=== PATIENT | female | born 1965 | race Caucasian/White ===

== ENCOUNTER 2017-09-18 05:42 | Emergency (ER) | payer BC ==
[~2017-09-18] VITALS: Ht 170.2 cm; Wt 110.8 kg
[2017-09-18] MEDS ORDERED: ondansetron/PF 4mg/2ml inj IV ONE (06:20)
[2017-09-18] MEDS ORDERED: piperacillin/tazo 3.375gm/50ml 50 ML IV ONE (06:20)
[2017-09-18] MEDS ORDERED: normal saline 1000ML IV soln IV ONE (06:20)
[2017-09-18] MEDS ORDERED: morphine 4 MG/ML inj SYRINge IV ONE (06:20)
[2017-09-18] MEDS ORDERED: vancomycin/NS 1 GM ADD-VANTAGE 250 ML IV ONE (06:20)
[2017-09-18] MEDS ORDERED: iohexol 300mg/ml 100ml inj. ONE (06:31)
[2017-09-18 07:27] LABS: BASOPHILS # (AUTO) 0.1 X10'3 (0-0.2); BASOPHILS % (AUTO) 0.5 % (0-1); EOSINOPHILS # (AUTO) 0.4 X10'3 (0-0.9); EOSINOPHILS % (AUTO) 1.6 % (0-6); HEMATOCRIT 32.7 % (35.0-45.0); HEMOGLOBIN 10.4 g/dl (12.0-16.0); LYMPHOCYTES # (AUTO) 1.6 X10'3 (1.1-4.8); LYMPHOCYTES % (AUTO) 7.1 % (21-51); MEAN CORPUSCULAR HEMOGLOBIN 22.6 PG (27.0-31.0); MEAN CORPUSCULAR HGB CONC 31.8 % (33.0-36.5); MEAN CORPUSCULAR VOLUME 71.2 FL (78-98); MEAN PLATELET VOLUME 8.6 FL (7.4-10.4); MONOCYTES % (AUTO) 4.7 % (2-12); NEUTROPHILS # (AUTO) 18.9 X10'3 (1.8-7.7); NEUTROPHILS % (AUTO) 86.1 % (42-75); PLATELET COUNT 482 X10'3 (140-440); RED BLOOD COUNT 4.59 X10'6 (4.20-5.60); RED CELL DISTRIBUTION WIDTH 19.9 % (11.5-14.5)
[2017-09-18] MEDS ORDERED: normal saline 1000ML IV soln IVB ONE ×2 (07:30)
[2017-09-18 07:38] LABS: PARTIAL THROMBOPLASTIN TIME 26 SECONDS (22-32); PROTHROMBIN TIME 10.5 SECONDS (9.0-12.0)
[2017-09-18 07:44] LABS: ALANINE AMINOTRANSFERASE 30 U/L (12-78); ALBUMIN 2.8 G/DL (3.4-5.0); ALBUMIN/GLOBULIN RATIO 0.6 (1.1-1.5); ALKALINE PHOSPHATASE 98 IU/L (46-116); ANION GAP 8 (8-16); ASPARTATE AMINO TRANSFERASE 22 U/L (10-37); BILIRUBIN,TOTAL 0.4 MG/DL (0.1-1.0); BLOOD UREA NITROGEN 11 MG/DL (7-18); BUN/CREATININE RATIO 12.2 (6.6-38.0); CALCIUM 8.5 MG/DL (8.5-10.1); CHLORIDE 100 MMOL/L (99-107); GLUCOSE 147 MG/DL (70-104); MAGNESIUM 1.8 MG/DL (1.5-2.4); POTASSIUM 3.2 MMOL/L (3.5-5.1); SODIUM 136 MMOL/L (135-145); TOTAL CARBON DIOXIDE 28.1 MMOL/L (24-32); TOTAL PROTEIN 7.5 G/DL (6.4-8.2); eGFR 66 ML/MIN
[2017-09-18] MEDS ORDERED: potassium Cl 20 mEq SR tablet PO STA (07:51)
[2017-09-18] MEDS ORDERED: CLIN150C8 PO (09:04)
[2017-09-18] MEDS ORDERED: SULF1TAB49 PO (09:04)
[2017-09-18] MEDS ORDERED: HYDR-3965 PO (09:04)
[2017-09-18 10:58] VITALS: BP 162/55
== END 2017-09-18 11:00 | disposition home or self-care (01) ==
LOC: ER 05:43
DX: N76.2 Acute vulvitis (principal); N76.4 Abscess of vulva; Z79.899 Other long term (current) drug therapy
CPT/HCPCS: 36415; 71045; 72193; 80053; 83605; 83735; 84145; 85025; 85610; 85730; 87040; 93005; 96365; 96367; 96375; 99285; J2270; J2405; J2543; J3370; J7030; Q9967

== ENCOUNTER 2019-03-11 13:19 | Inpatient (IN) | payer BC, OTHER ==
[~2019-03-11] VITALS: Ht 170.2 cm; Wt 107.4 kg
[~2019-03-11 13:19] MED LIST: CLIN150C8 PO; etomidate 2mg/ml inj. ONE; rocuronium 10mg/ml inj IV ONE
[2019-03-11 15:04] LABS: BASOPHILS % (AUTO) 0.2 % (0-1); EOSINOPHILS # (AUTO) 0.1 X10'3 (0-0.9); EOSINOPHILS % (AUTO) 0.4 % (0-6); HEMATOCRIT 38.1 % (35.0-45.0); HEMOGLOBIN 11.4 g/dl (12.0-16.0); LYMPHOCYTES # (AUTO) 1.6 X10'3 (1.1-4.8); LYMPHOCYTES % (AUTO) 10.3 % (21-51); MEAN CORPUSCULAR HEMOGLOBIN 21.7 PG (27.0-31.0); MEAN CORPUSCULAR HGB CONC 29.9 g/dL (33.0-36.5); MEAN CORPUSCULAR VOLUME 72.5 FL (78-98); MEAN PLATELET VOLUME 8.2 FL (7.4-10.4); MONOCYTES # (AUTO) 1.3 X10'3 (0-0.9); MONOCYTES % (AUTO) 8.4 % (2-12); NEUTROPHILS # (AUTO) 12.2 X10'3 (1.8-7.7); NEUTROPHILS % (AUTO) 80.7 % (42-75); PLATELET COUNT 514 X10'3 (140-440); RED BLOOD COUNT 5.26 X10'6 (4.20-5.60); RED CELL DISTRIBUTION WIDTH 19.2 % (11.5-14.5); WHITE BLOOD COUNT 15.1 X10'3 (4.5-11.0)
[2019-03-11 15:33] LABS: ALANINE AMINOTRANSFERASE 53 U/L (12-78); ALBUMIN/GLOBULIN RATIO 0.6 (1.1-1.5); ALKALINE PHOSPHATASE 114 IU/L (46-116); ANION GAP 4 (8-16); ASPARTATE AMINO TRANSFERASE 33 U/L (10-37); BILIRUBIN,TOTAL 0.3 MG/DL (0.1-1.0); BLOOD UREA NITROGEN 13 MG/DL (7-18); BUN/CREATININE RATIO 14.3 (6.6-38.0); CALCIUM 8.1 MG/DL (8.5-10.1); CHLORIDE 101 MMOL/L (99-107); CREATININE 0.91 MG/DL (0.40-0.90); GLUCOSE 86 MG/DL (70-104); POTASSIUM 4.2 MMOL/L (3.5-5.1); SODIUM 139 MMOL/L (135-145); TOTAL PROTEIN 7.8 G/DL (6.4-8.2); eGFR 65 ML/MIN
[2019-03-11] MEDS ORDERED: nitroGLYCERIN-Tridil 50MG/D5W 250 ML IV PRN (15:49)
[2019-03-11] MEDS ORDERED: furosemide 40mg/4ml inj IV ONE (15:50)
[2019-03-11] MEDS ORDERED: morphine 4 MG/ML inj SYRINge IV ONE (15:50)
[2019-03-11] MEDS ORDERED: aspirin 81mg tab.chew PO ONE (15:50)
[2019-03-11 16:06] LABS: PLATELET ESTIMATE INCREASED
[2019-03-11 16:07] LABS: ANISOCYTOSIS 2+; HYPOCHROMASIA 2+; MICROCYTOSIS 1+; POLYCHROMASIA FEW
[2019-03-11 16:10] LABS: STOMATOCYTES 1+
[2019-03-11] MEDS ORDERED: nitroGLYCERIN 0.4mg/hour patch TD ONE (16:35)
[2019-03-11 16:37] LABS: PARTIAL THROMBOPLASTIN TIME 24 SECONDS (22-32)
[2019-03-11] MEDS ORDERED: NO HOME MEDS (16:58)
[2019-03-11] MEDS ORDERED: potassium Cl 20 mEq SR tablet PO PRN ×2 (17:50)
[2019-03-11] MEDS ORDERED: potassium CL 10mEq/100ml bag 100 ML IV PRN ×2 (17:50)
[2019-03-11] MEDS ORDERED: ondansetron/PF 4mg/2ml inj IV PRN (17:50)
--- NOTE | 2019-03-11 18:27 | NUR ---
DR LARSON TOLD PT TO WAIT TO EAT, PT IN ROOM EATING. BOYFRIEND WENT OUT AND BOUGHT FOOD FOR PT.
[2019-03-11] MEDS ORDERED: furosemide 10 MG/1 ML 10ml inj IV SCH (20:00)
[2019-03-11] MEDS: heparin, porcine 5000 units/ml vial SQ SCH (20:25)
[2019-03-11 21:22] VITALS: BP 153/98
[2019-03-11 22:00] VITALS: BP 184/97
[2019-03-11] MEDS: K and/or MAG REPLACEMENT MC SCH (22:00)
[2019-03-11] MEDS ORDERED: lisinopril 2.5mg tablet PO SCH (22:45)
[2019-03-12] VITALS (18 sets, daily range): BP systolic 117–177; BP diastolic 51–104
--- NOTE | 2019-03-12 02:50 | NUR ---
PAGER ID: [phone] MESSAGE: Dr. Anderson, Patient Marika Fairbanks rm [phone] ACCE. Hypertensive. SBP 183, repeat 172. Please advise. [place] RN ACCE [id number]
--- NOTE | 2019-03-12 02:53 | NUR ---
Per hypertension, Dr. Anedrson called back and gave order for Hydralazine 10 mg IVP q6h prn for SBP greater than 180.
[2019-03-12 03:20] LABS: BASOPHILS # (AUTO) 0.1 X10'3 (0-0.2); BASOPHILS % (AUTO) 0.4 % (0-1); EOSINOPHILS # (AUTO) 0.1 X10'3 (0-0.9); EOSINOPHILS % (AUTO) 0.4 % (0-6); HEMATOCRIT 35.4 % (35.0-45.0); HEMOGLOBIN 10.3 g/dl (12.0-16.0); LYMPHOCYTES # (AUTO) 1.4 X10'3 (1.1-4.8); LYMPHOCYTES % (AUTO) 9.1 % (21-51); MEAN CORPUSCULAR HEMOGLOBIN 21.4 PG (27.0-31.0); MEAN CORPUSCULAR HGB CONC 29.2 g/dL (33.0-36.5); MEAN CORPUSCULAR VOLUME 73.6 FL (78-98); MEAN PLATELET VOLUME 7.9 FL (7.4-10.4); MONOCYTES # (AUTO) 1.2 X10'3 (0-0.9); MONOCYTES % (AUTO) 7.8 % (2-12); NEUTROPHILS # (AUTO) 12.5 X10'3 (1.8-7.7); NEUTROPHILS % (AUTO) 82.3 % (42-75); PLATELET COUNT 496 X10'3 (140-440); RED BLOOD COUNT 4.81 X10'6 (4.20-5.60); RED CELL DISTRIBUTION WIDTH 19.3 % (11.5-14.5); WHITE BLOOD COUNT 15.2 X10'3 (4.5-11.0)
[2019-03-12 03:35] LABS: ALBUMIN 2.9 G/DL (3.4-5.0); ANION GAP 1 (8-16); BLOOD UREA NITROGEN 13 MG/DL (7-18); BUN/CREATININE RATIO 12.1 (6.6-38.0); CALCIUM 7.8 MG/DL (8.5-10.1); CHLORIDE 101 MMOL/L (99-107); CHOL/HDL RATIO 3.9 (0.00-4.99); CHOLESTEROL 138 MG/DL (0-200); CREATININE 1.07 MG/DL (0.40-0.90); GLUCOSE 140 MG/DL (70-104); HDL CHOLESTEROL 35 MG/DL (35-60); LDL CHOLESTEROL 97 MG/DL (50-100); POTASSIUM 4.1 MMOL/L (3.5-5.1); SODIUM 140 MMOL/L (135-145); TRIGLYCERIDES 43 MG/DL (20-135); eGFR 54 ML/MIN
[2019-03-12 04:59] LABS: PLATELET ESTIMATE INCREASED
[2019-03-12 05:00] LABS: ANISOCYTOSIS 2+; ELLIPTOCYTES FEW; HYPOCHROMASIA 2+; MICROCYTOSIS 1+
[2019-03-12 05:03] LABS: POLYCHROMASIA 1+
--- NOTE | 2019-03-12 07:16 | NUR ---
Problems reprioritized. Patient report given, questions answered & plan of care reviewed with Pat Rn.
[2019-03-12] MEDS ORDERED: carVEDilol 3.125mg tablet PO SCH (08:00)
[2019-03-12] MEDS ORDERED: lisinopril 2.5mg tablet PO SCH (08:00)
[2019-03-12] MEDS: heparin, porcine 5000 units/ml vial SQ SCH (08:40)
[2019-03-12] MEDS: K and/or MAG REPLACEMENT MC SCH ×2 (08:56→20:00)
[2019-03-12] MEDS: furosemide 10 MG/1 ML 10ml inj IV SCH ×2 (08:56→19:59)
[2019-03-12] MEDS: hydrALAZINE 20mg/ml inj. IV PRN (09:31)
--- NOTE | 2019-03-12 09:35 | NUR ---
AT O930 PATIENT SYSTOLIC B/P 190; MEDICATED WITH HYDRALAZINE. Addendum: 03/12/19 at 1932 by Laura Dee RN Amended: Links added.
[2019-03-12 11:03] LABS: URINE AMPHETAMINE SCREEN NEGATIVE (Neg); URINE BARBITUATE SCREEN NEGATIVE (Neg); URINE BENZODIAZEPINES SCREEN NEGATIVE (Neg); URINE CANNABINOID SCREEN NEGATIVE (Neg); URINE COCAINE SCREEN NEGATIVE (Neg); URINE METHADONE SCREEN NEGATIVE (Neg); URINE OPIATE SCREEN NEGATIVE (Neg); URINE PHENCYCLIDINE SCREEN NEGATIVE (Neg)
[2019-03-12] MEDS ORDERED: heparin 10,000 units/1 ML INJ IV ONE (11:25)
--- NOTE | 2019-03-12 11:45 | NUR ---
1145 DR. CHEEK PLACED ORDERS. ORDERS NOTED; HOWEVER, PATIENT'S SL NOW OCCLUDED. APPRISED DR. CHEEK OF DIFFICULTY PLACING NEW IV. ORDER FOR PICC LINE GIVEN AND SIGNED. PAGED PICC NURSE THREE TIMES ; HOWEVER, PICC NURSE DID NOT RESPOND UNTIL 1430. PICC NURSE DECIDED IT WAS NOT NECESSARY TO PLACE PICC LINE AND SPOKE WITH DR. CHEEK WHOM SHE STATED HAD AGREED WITH HER ASSESSMENT; THEREFORE, TWO 20 [address] SL WERE PLACED. PATIENT CONTINUES ON BI-PAP WHICH WAS PLACED IN RESPONSE TO EARLIER A.B.G. RESULTS.CT READY TO HOURLY MANAGER PATIENT. RT REQUEST WE WAIT UNTIL THREE SO SHE CAN TAKE ANOTHER SET OF BLOOD GASES. RT DID NOT RETURN UNTIL 1630 AND STATED SHE COULD NOT ACCOMPANY PT TO CT. AT THIS POINT HEPARIN BOLUS GIVEN , HEPARIN STARTED.RECEIVED CALL FROM DR. CHEEK WANTING THE RESULTS OF LATEST BLOOD GASES. BLOOD GASES HAD NOT POPULATED ON SCREEN . CALL FROM RT STATES PCO2 HIGHER THAN EARLIER TEST AND SHE WAS NOTIFYING DR. CHEEK. INCREASED FIO2 TO 50% RECOMMENDED FROM CICU CHARGE NURSE. PATIENT TRANSFERRED TO CICU WITH ALL BELONGINGS;REPORT GIVEN. Addendum: 03/12/19 at 2008 by Laura Dee RN Amended: Links added.
[2019-03-12 12:17] LABS: BASOPHILS % (AUTO) 0.1 % (0-1); EOSINOPHILS # (AUTO) 0.1 X10'3 (0-0.9); EOSINOPHILS % (AUTO) 0.6 % (0-6); HEMATOCRIT 35.6 % (35.0-45.0); HEMOGLOBIN 10.2 g/dl (12.0-16.0); LYMPHOCYTES # (AUTO) 1.3 X10'3 (1.1-4.8); LYMPHOCYTES % (AUTO) 8.1 % (21-51); MEAN CORPUSCULAR HEMOGLOBIN 21.1 PG (27.0-31.0); MEAN CORPUSCULAR HGB CONC 28.6 g/dL (33.0-36.5); MONOCYTES # (AUTO) 1.2 X10'3 (0-0.9); NEUTROPHILS % (AUTO) 83.2 % (42-75); PLATELET COUNT 472 X10'3 (140-440); RED BLOOD COUNT 4.81 X10'6 (4.20-5.60); RED CELL DISTRIBUTION WIDTH 19.3 % (11.5-14.5); WHITE BLOOD COUNT 15.6 X10'3 (4.5-11.0)
[2019-03-12 12:26] LABS: ABG BASE EXCESS 4.8 mmol/L (-2.0-3.0); ABG HCO3 34.8 mmol/L (22.0-26.0); ABG PCO2 (T) 87.3 mmHg (35.0-45.0); ABG PH (T) 7.218 (7.350-7.450); ABG PO2 (T) 76.4 mmHg (83-108); ALLEN'S TEST POSITIVE; FCOHb 0.7 % (0.5-1.5); FLOW 2 L/min; FMetHb 0.2 % (0.3-1.12); FO2Hb 93.2 % (94-100)
[2019-03-12 12:29] LABS: PARTIAL THROMBOPLASTIN TIME 25 SECONDS (22-32)
[2019-03-12 13:03] LABS: ANISOCYTOSIS 2+; HYPOCHROMASIA 2+; MICROCYTOSIS 1+; NUCLEATED RED BLOOD CELLS 3 /100WBC (0-0); PLATELET ESTIMATE INCREASED; POLYCHROMASIA FEW; TOTAL CELLS COUNTED 100
[2019-03-12 13:06] LABS: STOMATOCYTES 2+; TARGET CELLS FEW
[2019-03-12 13:07] LABS: LARGE PLATELETS FEW
--- NOTE | 2019-03-12 14:00 | NUR ---
Spoke with Dr. Roca regarding PICC order, pt needs heparin gtt and has order for CTA. No picc needed per Dr. Roca, but extended if appropriate. After looking at vessels, pt's veins not appropriate for extended PIV, will place two PIVS in place of extended. PRASANNA PATEL
[2019-03-12] MEDS ORDERED: iohexol 350MG/ML 100ml bottle IV ONE (14:21)
[2019-03-12] MEDS: ipratropium/albuterol 3ml nebule NEB SCH ×3 (15:30→22:23)
[2019-03-12] MEDS: heparin 25,000 UNIT/250ml bag 250 ML IV SCH ×2 (15:53→22:49)
[2019-03-12] MEDS: cefepime 2g/NS 100ml ADVANTAGE 100 ML IV SCH ×2 (15:57→20:29)
--- NOTE | 2019-03-12 16:00 | NUR ---
Arrived from [facility]E on bipap, patient very angry swearing at Md and staff
[2019-03-12] MEDS ORDERED: ipratropium/albuterol 3ml nebule NEB PRN (17:15)
--- NOTE | 2019-03-12 17:15 | NUR ---
calm now plesant and cooperative.
[2019-03-12] MEDS ORDERED: lisinopril 5mg tablet PO SCH (17:34)
--- NOTE | 2019-03-12 18:15 | NUR ---
Problems reprioritized. Patient report given, questions answered & plan of care reviewed with oncoming shift.
--- NOTE | 2019-03-12 19:16 | NUR ---
1830:Patient in room CICU 2016. I have received report from Tomeka PATEL and had the opportunity to ask questions and assume patient care. Pt awake, alert,denies shortness of breath, eating dinner. 1916: Dr. Rosenberg at bedside to see patient, update given, no new orders.
[2019-03-12] MEDS: carvedilol 6.25mg tablet PO SCH (19:59)
[2019-03-12 20:11] LABS: ABG BASE EXCESS 5.5 mmol/L (-2.0-3.0); ABG HCO3 36.6 mmol/L (22.0-26.0); ABG OXYGEN SATURATION 93.9 % (95-98); ABG PCO2 (T) 98.3 mmHg (35.0-45.0); ABG PH (T) 7.186 (7.350-7.450); ABG PO2 (T) 75.8 mmHg (83-108); ALLEN'S TEST POSITIVE; FLOW 3 L/min; FMetHb 0.2 % (0.3-1.12); FO2Hb 92.8 % (94-100); PATIENT TEMPERATURE 36.5; TOTAL HEMOGLOBIN 11.2 G/dl (12.0-16.0)
--- NOTE | 2019-03-12 20:22 | NUR ---
Pt becoming more agitated, desatting on NC. ABG obtained, placed on Bipap. Manav notified of ABG result, orders received.
[2019-03-12] MEDS: LORazepam 2 mg/ml vial IV PRN (20:29)
--- NOTE | 2019-03-12 21:28 | NUR ---
Pt appears less agitated, tolerating Bipap. Pt requesting CT be done in the am, Manav notified. Orders received
[2019-03-12 22:25] LABS: D-DIMER 1.45 MG/L FEU (0-0.50)
[2019-03-12] MEDS: heparin 10,000 units/1 ML INJ IV PRN (22:48)
[2019-03-13] VITALS (23 sets, daily range): BP systolic 81–156; BP diastolic 36–88
[2019-03-13] MEDS: LORazepam 2 mg/ml vial IV PRN (01:03)
[2019-03-13] MEDS: ipratropium/albuterol 3ml nebule NEB SCH ×6 (03:45→22:55)
[2019-03-13] MEDS ORDERED: flumazenil 0.1 mg/ml inj. IV ONE ×2 (03:52→04:58)
[2019-03-13 03:55] LABS: ABG HCO3 46.8 mmol/L (22.0-26.0); ABG OXYGEN SATURATION 93.7 % (95-98); ABG PCO2 (T) 146.3 mmHg (35.0-45.0); ABG PH (T) 7.123 (7.350-7.450); ABG PO2 (T) 77.7 mmHg (83-108); ALLEN'S TEST POSITIVE; FCOHb 0.9 % (0.5-1.5); FMetHb 0.2 % (0.3-1.12); FO2Hb 92.7 % (94-100); RESPIRATORY RATE 22 b/min; TOTAL HEMOGLOBIN 11.2 G/dl (12.0-16.0)
--- NOTE | 2019-03-13 04:09 | NUR ---
Pt somulent, unresponsive during AM ABG draw. Romazicon administered, pt awakened, attempting to pull off Bipap mask. AM ABG result called to Rebekah Gaspar, orders received.
[2019-03-13 04:46] LABS: ABG BASE EXCESS 10.7 mmol/L (-2.0-3.0); ABG HCO3 43.5 mmol/L (22.0-26.0); ABG OXYGEN SATURATION 96.4 % (95-98); ABG PCO2 (T) 129.3 mmHg (35.0-45.0); ABG PH (T) 7.145 (7.350-7.450); ABG PO2 (T) 93.5 mmHg (83-108); ALLEN'S TEST POSITIVE; FCOHb 0.7 % (0.5-1.5); FMetHb 0.2 % (0.3-1.12); FO2Hb 95.5 % (94-100); RESPIRATORY RATE 24 b/min; TOTAL HEMOGLOBIN 11.1 G/dl (12.0-16.0)
--- NOTE | 2019-03-13 04:48 | NUR ---
ABG results called to Manav. No new orders at this time.
[2019-03-13 05:27] LABS: BASOPHILS % (AUTO) 0.2 % (0-1); EOSINOPHILS % (AUTO) 0.2 % (0-6); HEMATOCRIT 35.6 % (35.0-45.0); HEMOGLOBIN 10.2 g/dl (12.0-16.0); LYMPHOCYTES % (AUTO) 7.1 % (21-51); MEAN CORPUSCULAR HEMOGLOBIN 21.3 PG (27.0-31.0); MEAN CORPUSCULAR HGB CONC 28.5 g/dL (33.0-36.5); MEAN CORPUSCULAR VOLUME 74.8 FL (78-98); MEAN PLATELET VOLUME 8.4 FL (7.4-10.4); MONOCYTES % (AUTO) 7.4 % (2-12); NEUTROPHILS # (AUTO) 11.7 X10'3 (1.8-7.7); NEUTROPHILS % (AUTO) 85.1 % (42-75); PLATELET COUNT 421 X10'3 (140-440); RED BLOOD COUNT 4.76 X10'6 (4.20-5.60); RED CELL DISTRIBUTION WIDTH 19.7 % (11.5-14.5); WHITE BLOOD COUNT 13.7 X10'3 (4.5-11.0)
--- NOTE | 2019-03-13 05:28 | NUR ---
Pt awake,swearing, pulling off mask, screaming "please!" demanding water. Explained again that pt cannot tolerate being off Bipap. Desats to 77% when off BiPap. Mask replaced, Sats returned to 93%.
[2019-03-13 05:34] LABS: ALBUMIN 2.5 G/DL (3.4-5.0); ANION GAP 3 (8-16); BLOOD UREA NITROGEN 20 MG/DL (7-18); BUN/CREATININE RATIO 14.1 (6.6-38.0); CALCIUM 7.9 MG/DL (8.5-10.1); CHLORIDE 98 MMOL/L (99-107); CREATININE 1.42 MG/DL (0.40-0.90); GLUCOSE 127 MG/DL (70-104); SODIUM 138 MMOL/L (135-145); TOTAL CARBON DIOXIDE 37.2 MMOL/L (24-32); eGFR 39 ML/MIN
[2019-03-13 05:52] LABS: POTASSIUM 5.5 MMOL/L (3.5-5.1)
--- NOTE | 2019-03-13 06:01 | NUR ---
Pt unresponsive, not following commands. Manav notified. Orders received to notify ER MD for emergent intubation.
--- NOTE | 2019-03-13 06:15 | NUR ---
Patient in room CICU 2016. I have received report from cage shift manager and had the opportunity to ask questions and assume patient care.
[2019-03-13] MEDS ORDERED: ipratropium/albuterol 3ml nebule NEB PRN (06:30)
[2019-03-13 06:44] LABS: PLATELET ESTIMATE NORMAL
[2019-03-13 06:45] LABS: ANISOCYTOSIS 2+; HYPOCHROMASIA 2+; MICROCYTOSIS 1+; POLYCHROMASIA 1+
[2019-03-13] MEDS ORDERED: etomidate 2mg/ml inj. IV ONE (06:45)
[2019-03-13] MEDS ORDERED: rocuronium 10mg/ml inj IV ONE (06:45)
[2019-03-13] MEDS: midazolam 100mg in NS 100ml 100 ML IV PRN ×3 (07:13→18:26)
[2019-03-13] MEDS: FENTANYL-0.9 % NACL/PF 100 ML IV PRN ×2 (08:11→20:35)
[2019-03-13] MEDS: furosemide 10 MG/1 ML 10ml inj IV SCH ×2 (08:49→20:34)
[2019-03-13] MEDS: carvedilol 6.25mg tablet PO SCH (08:49)
[2019-03-13] MEDS: CEFEPIME 2gm in D5W 50mL 100 ML IV SCH ×2 (08:50→20:35)
[2019-03-13] MEDS: K and/or MAG REPLACEMENT MC SCH ×2 (08:57→20:00)
[2019-03-13] MEDS ORDERED: POTASSIUM BICARB 20meq eff tab 20 MEQ TABLET.EFF OGT PRN ×2 (11:55→11:56)
--- NOTE | 2019-03-13 12:19 | NUR ---
TF consult: Pt presented with SOB and admitted with acute exacerbation of CHF per MD note. Pt failed bipap and subsequently intubated for hypoxia and hypercarbia pending OG tube placement per MD. Pt currently on lasix and being diuresed. Per box lidder, no additional free water flushes while on TF and diuresing. TF recs below. Will continue to follow. Recommendations: 1. Once OG tube placed and confirmed in appropriate location, continuous Vital High Protein starting at 20ml/hr to advance as tolerated by 20ml q 8 hours to goal of 75ml/hr providing 1800 kcal, 158 g protein and 1512 ml free water and total volume of 1800 ml. 2. Pre alb q Sunday and 3. Daily weights 4. bowel care as needed Addendum: 03/13/19 at [address] Amended: Links added. Addendum: 03/13/19 at [address] I have reviewed and agree with note by Actuarial Technician. Karrie Giraldo, MARK
[2019-03-13] MEDS: methylPREDNISolone sod succ 125mg/2ml vial IV SCH ×2 (12:52→20:34)
[2019-03-13] MEDS: pantoprazole 40 MG vial IV SCH (12:53)
[2019-03-13] MEDS ORDERED: iohexol 350MG/ML 100ml bottle IV ONE (13:08)
[2019-03-13] MEDS ORDERED: dextrose 50%-water 50ml dispensing syringe IV ONE (14:23)
[2019-03-13] MEDS: heparin 25,000 UNIT/250ml bag 250 ML IV SCH (15:04)
--- NOTE | 2019-03-13 18:07 | NUR ---
Problems reprioritized. Patient report given, questions answered & plan of care reviewed with oncoming shift.
[2019-03-13] MEDS: heparin 10,000 units/1 ML INJ IV PRN (18:23)
[2019-03-13] MEDS: carvedilol 6.25mg tablet OGT SCH (20:00)
[2019-03-14] VITALS (23 sets, daily range): BP systolic 87–122; BP diastolic 42–77
[2019-03-14] MEDS: methylPREDNISolone sod succ 125mg/2ml vial IV SCH ×4 (02:16→20:59)
[2019-03-14] MEDS: midazolam 100mg in NS 100ml 100 ML IV PRN ×4 (02:17→20:16)
[2019-03-14] MEDS: ipratropium/albuterol 3ml nebule NEB SCH ×6 (03:05→23:16)
[2019-03-14 05:27] LABS: BASOPHILS # (AUTO) 0.1 X10'3 (0-0.2); BASOPHILS % (AUTO) 0.6 % (0-1); EOSINOPHILS % (AUTO) 0.1 % (0-6); HEMATOCRIT 34.7 % (35.0-45.0); HEMOGLOBIN 10.4 g/dl (12.0-16.0); LYMPHOCYTES # (AUTO) 0.8 X10'3 (1.1-4.8); LYMPHOCYTES % (AUTO) 6.9 % (21-51); MEAN CORPUSCULAR HEMOGLOBIN 21.3 PG (27.0-31.0); MEAN CORPUSCULAR VOLUME 70.9 FL (78-98); MEAN PLATELET VOLUME 8.4 FL (7.4-10.4); MONOCYTES # (AUTO) 0.3 X10'3 (0-0.9); MONOCYTES % (AUTO) 2.7 % (2-12); NEUTROPHILS # (AUTO) 9.9 X10'3 (1.8-7.7); NEUTROPHILS % (AUTO) 89.7 % (42-75); PLATELET COUNT 479 X10'3 (140-440); RED CELL DISTRIBUTION WIDTH 19.6 % (11.5-14.5)
[2019-03-14] MEDS: FENTANYL-0.9 % NACL/PF 100 ML IV PRN ×3 (05:38→23:34)
[2019-03-14 06:04] LABS: ALBUMIN 2.1 G/DL (3.4-5.0); ANION GAP 4 (8-16); BLOOD UREA NITROGEN 36 MG/DL (7-18); BUN/CREATININE RATIO 17.4 (6.6-38.0); CALCIUM 8.1 MG/DL (8.5-10.1); CHLORIDE 99 MMOL/L (99-107); CREATININE 2.07 MG/DL (0.40-0.90); GLUCOSE 159 MG/DL (70-104); POTASSIUM 4.4 MMOL/L (3.5-5.1); SODIUM 139 MMOL/L (135-145); TOTAL CARBON DIOXIDE 35.7 MMOL/L (24-32); eGFR 25 ML/MIN
[2019-03-14 07:50] LABS: ANISOCYTOSIS 2+; HYPOCHROMASIA 1+; MICROCYTOSIS 1+; NUCLEATED RED BLOOD CELLS 1 /100WBC (0-0); PLATELET ESTIMATE NORMAL; TOTAL CELLS COUNTED 100
[2019-03-14 07:51] LABS: LARGE PLATELETS FEW; POLYCHROMASIA 1+; TARGET CELLS FEW
[2019-03-14] MEDS: K and/or MAG REPLACEMENT MC SCH ×2 (08:00→20:00)
[2019-03-14] MEDS: lisinopril 5mg tablet OGT SCH (08:00)
[2019-03-14] MEDS: carvedilol 6.25mg tablet OGT SCH ×2 (08:00→21:01)
[2019-03-14] MEDS: pantoprazole 40 MG vial IV SCH (08:17)
[2019-03-14] MEDS: CEFEPIME 2gm in D5W 50mL 100 ML IV SCH (08:18)
[2019-03-14] MEDS: furosemide 10 MG/1 ML 10ml inj IV SCH (08:18)
[2019-03-14] MEDS: mineral oil/petrolatum ophthal oint EACHEYE SCH ×3 (08:20→20:59)
[2019-03-14 11:10] LABS: ABG BASE EXCESS 9.5 mmol/L (-2.0-3.0); ABG HCO3 36.4 mmol/L (22.0-26.0); ABG OXYGEN SATURATION 88.8 % (95-98); ABG PH (T) 7.385 (7.350-7.450); ABG PO2 (T) 55.8 mmHg (83-108); ALLEN'S TEST POSITIVE; FCOHb 0.1 % (0.5-1.5); FMetHb 0.1 % (0.3-1.12); FO2Hb 88.6 % (94-100); PATIENT TEMPERATURE 36.7; PEEP 5 cm H2O; RESPIRATORY RATE 16 b/min; TIDAL VOLUME 400 mL; TOTAL HEMOGLOBIN 10.9 G/dl (12.0-16.0)
[2019-03-14] MEDS ORDERED: normal saline 1000ml 1,000 ML IV ONE (11:15)
[2019-03-14] MEDS: heparin 25,000 UNIT/250ml bag 250 ML IV SCH (14:01)
[2019-03-14] MEDS ORDERED: dextrose ORAL solution 15 GM/59 ML bottle PO PRN ×2 (14:30)
[2019-03-14] MEDS ORDERED: glucagon, human recombinant 1mg kit SUBCUT PRN (14:30)
[2019-03-14] MEDS ORDERED: dextrose 50%-water 50ml dispensing syringe IV PRN ×2 (14:30)
[2019-03-14] MEDS: insulin regular, human U-100 3ml vial - multi-dose SQ SCH ×2 (14:41→21:06)
--- NOTE | 2019-03-14 18:12 | NUR ---
Problems reprioritized. Patient report given, questions answered & plan of care reviewed with oncoming shift.
[2019-03-14] MEDS: heparin 10,000 units/1 ML INJ IV PRN (18:37)
[2019-03-14 20:45] LABS: ABG BASE EXCESS 8.2 mmol/L (-2.0-3.0); ABG OXYGEN SATURATION 91.1 % (95-98); ABG PCO2 (T) 67.2 mmHg (35.0-45.0); ABG PH (T) 7.344 (7.350-7.450); ABG PO2 (T) 62.9 mmHg (83-108); ALLEN'S TEST POSITIVE; FCOHb 0.3 % (0.5-1.5); FMetHb 0.2 % (0.3-1.12); FO2Hb 90.6 % (94-100); PATIENT TEMPERATURE 36.5; PEEP 8 cm H2O; RESPIRATORY RATE 18 b/min; TIDAL VOLUME 400 mL
[2019-03-14] MEDS: cefepime 2g/NS 100ml ADVANTAGE 100 ML IV SCH (21:01)
[2019-03-14] MEDS: insulin glargine (Lantus) pen - multi-dose SQ SCH (21:09)
[2019-03-15] VITALS (24 sets, daily range): BP systolic 100–154; BP diastolic 53–88
[2019-03-15 00:39] LABS: PARTIAL THROMBOPLASTIN TIME 49 SECONDS (22-32)
[2019-03-15] MEDS: midazolam 100mg in NS 100ml 100 ML IV PRN ×6 (02:36→23:12)
[2019-03-15] MEDS: methylPREDNISolone sod succ 125mg/2ml vial IV SCH ×4 (02:39→21:00)
[2019-03-15] MEDS: mineral oil/petrolatum ophthal oint EACHEYE SCH ×4 (02:39→20:59)
[2019-03-15] MEDS: insulin regular, human U-100 3ml vial - multi-dose SQ SCH ×4 (02:50→21:06)
[2019-03-15] MEDS: ipratropium/albuterol 3ml nebule NEB SCH ×6 (03:00→23:08)
[2019-03-15 03:31] LABS: ABG BASE EXCESS 7.6 mmol/L (-2.0-3.0); ABG HCO3 33.4 mmol/L (22.0-26.0); ABG OXYGEN SATURATION 89.3 % (95-98); ABG PCO2 (T) 51.3 mmHg (35.0-45.0); ABG PH (T) 7.428 (7.350-7.450); ABG PO2 (T) 53.9 mmHg (83-108); ALLEN'S TEST POSITIVE; FCOHb 0.2 % (0.5-1.5); FO2Hb 89.1 % (94-100); PATIENT TEMPERATURE 36.2; PEEP 8 cm H2O; RESPIRATORY RATE 22 b/min; TIDAL VOLUME 400 mL; TOTAL HEMOGLOBIN 10.7 G/dl (12.0-16.0)
[2019-03-15 04:00] LABS: BASOPHILS # (AUTO) 0.2 X10'3 (0-0.2); BASOPHILS % (AUTO) 1.2 % (0-1); EOSINOPHILS % (AUTO) 0 % (0-6); HEMATOCRIT 31.3 % (35.0-45.0); HEMOGLOBIN 9.5 g/dl (12.0-16.0); LYMPHOCYTES # (AUTO) 0.6 X10'3 (1.1-4.8); LYMPHOCYTES % (AUTO) 3.1 % (21-51); MEAN CORPUSCULAR HEMOGLOBIN 21.3 PG (27.0-31.0); MEAN CORPUSCULAR HGB CONC 30.3 g/dL (33.0-36.5); MEAN CORPUSCULAR VOLUME 70.1 FL (78-98); MEAN PLATELET VOLUME 8.1 FL (7.4-10.4); MONOCYTES # (AUTO) 0.5 X10'3 (0-0.9); MONOCYTES % (AUTO) 2.6 % (2-12); NEUTROPHILS # (AUTO) 16.8 X10'3 (1.8-7.7); NEUTROPHILS % (AUTO) 93.1 % (42-75); PLATELET COUNT 463 X10'3 (140-440); RED BLOOD COUNT 4.46 X10'6 (4.20-5.60); RED CELL DISTRIBUTION WIDTH 19.3 % (11.5-14.5); WHITE BLOOD COUNT 18.1 X10'3 (4.5-11.0)
[2019-03-15 04:03] LABS: ANION GAP 4 (8-16); BLOOD UREA NITROGEN 59 MG/DL (7-18); BUN/CREATININE RATIO 28.8 (6.6-38.0); CALCIUM 7.8 MG/DL (8.5-10.1); CHLORIDE 100 MMOL/L (99-107); CREATININE 2.05 MG/DL (0.40-0.90); GLUCOSE 185 MG/DL (70-104); POTASSIUM 4.1 MMOL/L (3.5-5.1); SODIUM 138 MMOL/L (135-145); eGFR 26 ML/MIN
--- NOTE | 2019-03-15 06:15 | NUR ---
Patient in room CICU 2016. I have received report from records technician and had the opportunity to ask questions and assume patient care.
[2019-03-15 06:42] LABS: PARTIAL THROMBOPLASTIN TIME 97 SECONDS (22-32)
[2019-03-15] MEDS: lisinopril 5mg tablet OGT SCH (08:00)
[2019-03-15] MEDS: FENTANYL-0.9 % NACL/PF 100 ML IV PRN ×3 (08:30→23:12)
[2019-03-15] MEDS: pantoprazole 40 MG vial IV SCH (08:30)
[2019-03-15] MEDS: cefepime 2g/NS 100ml ADVANTAGE 100 ML IV SCH ×2 (08:31→20:57)
[2019-03-15] MEDS: carvedilol 6.25mg tablet OGT SCH ×2 (08:31→21:00)
[2019-03-15] MEDS: K and/or MAG REPLACEMENT MC SCH ×2 (08:42→20:00)
[2019-03-15] MEDS: heparin 10,000 units/1 ML INJ IV PRN (08:59)
--- NOTE | 2019-03-15 10:27 | NUR ---
Reassessment: Per MD notes pt going in to [facility], to receive IV fluid to see if the creatinine would get better. Pt currently tolerating TF at goal rate with GRV 0-40 mL which is WNL. Patient's wt is +22.7 kg however this seems unlikely as it occurred in 1 day and patient not with excessive positive fluid balance. Wt was obtained on bed scale, likely scale error. Pt now on hyperglycemic protocol d/t elevated BG levels, pt receiving routine steroids. Current A1c is 6.9, no listed DM in PMH. Pt with low Ayush of 11. Pt with BLE 2+ edema however per WOC notes skin is intact. LBM 03/11. Pt would benefit from opioid antagonist while receiving opiate. Will continue to follow closely. Recommendations: 1. Continuous Vital High Protein starting at 20ml/hr to advance as tolerated by 20ml q 8 hours to goal of 75ml/hr providing 1800 kcal, 158 g protein and 1512 ml free water and total volume of 1800 ml. 2. No free water flushes at this time per MD 3. Prealbumin q Sunday and 4. Daily weights 5. Routine bowel care; opioid antagonist 6. Monitor need for DM education once stable if pt with new DM dx; current A1c is 6.9 with no hx DM in PMH 7. Wt per rx Addendum: 03/15/19 at [address] Amended: Links added.
[2019-03-15 17:31] LABS: ABG BASE EXCESS 6.8 mmol/L (-2.0-3.0); ABG HCO3 34.4 mmol/L (22.0-26.0); ABG OXYGEN SATURATION 88.6 % (95-98); ABG PH (T) 7.335 (7.350-7.450); ABG PO2 (T) 61.3 mmHg (83-108); ALLEN'S TEST POSITIVE; FCOHb 0.3 % (0.5-1.5); FMetHb 0.1 % (0.3-1.12); FO2Hb 88.2 % (94-100); PEEP 12 cm H2O; RESPIRATORY RATE 18 b/min; TIDAL VOLUME 400 mL
--- NOTE | 2019-03-15 18:15 | NUR ---
Problems reprioritized. Patient report given, questions answered & plan of care reviewed with oncoming sihft.
--- NOTE | 2019-03-15 18:30 | NUR ---
Patient in room CICU 2016. I have received report from Tomeka PATEL and had the opportunity to ask questions and assume patient care.
[2019-03-15] MEDS ORDERED: VECuronium br 10mg inj. IV ONE (19:15)
[2019-03-15] MEDS: propofol 1000mg/100ml bottle 100 ML IV SCH (19:26)
--- NOTE | 2019-03-15 19:49 | NUR ---
PATIENT OXYGENATION DESATS TO 81% WHEN PLUGGING METANEB INLINE TO VENT DUE TO LOSS OF PEEP RECRUITMENT. DUONEB WILL BE GIVEN USING AERONEB FOR REMAINING RESPIRATORY TREATMENTS TONIGHT
[2019-03-15] MEDS: lactobacillus rhamnosus 10,000 MMU CELLS/CAPSULE PO SCH (21:00)
[2019-03-15] MEDS: heparin, porcine 5000 units/ml vial SQ SCH (21:01)
[2019-03-15] MEDS: insulin glargine (Lantus) pen - multi-dose SQ SCH (21:07)
[2019-03-15] MEDS: DOBUTamine-DoBUTrex 500mg/D5W 250 ML IV SCH (21:17)
[2019-03-15] MEDS ORDERED: lactulose 20gm/30ml cup PO PRN (21:35)
[2019-03-15] MEDS: docusate sodium 100mg/10ml UD cup PO SCH (23:28)
[2019-03-16] VITALS (24 sets, daily range): BP systolic 115–187; BP diastolic 48–95
[2019-03-16] MEDS: mineral oil/petrolatum ophthal oint EACHEYE SCH ×4 (02:25→19:18)
[2019-03-16] MEDS: insulin regular, human U-100 3ml vial - multi-dose SQ SCH ×4 (02:26→20:01)
[2019-03-16] MEDS: methylPREDNISolone sod succ 125mg/2ml vial IV SCH ×4 (02:30→19:17)
[2019-03-16 02:59] LABS: BASOPHILS % (AUTO) 0.2 % (0-1); EOSINOPHILS % (AUTO) 0 % (0-6); HEMATOCRIT 32.1 % (35.0-45.0); HEMOGLOBIN 9.7 g/dl (12.0-16.0); LYMPHOCYTES # (AUTO) 0.6 X10'3 (1.1-4.8); LYMPHOCYTES % (AUTO) 3.1 % (21-51); MEAN CORPUSCULAR HEMOGLOBIN 21.1 PG (27.0-31.0); MEAN CORPUSCULAR HGB CONC 30.3 g/dL (33.0-36.5); MEAN CORPUSCULAR VOLUME 69.6 FL (78-98); MEAN PLATELET VOLUME 8.2 FL (7.4-10.4); MONOCYTES # (AUTO) 0.5 X10'3 (0-0.9); MONOCYTES % (AUTO) 2.3 % (2-12); NEUTROPHILS # (AUTO) 18.7 X10'3 (1.8-7.7); NEUTROPHILS % (AUTO) 94.4 % (42-75); PLATELET COUNT 443 X10'3 (140-440); RED BLOOD COUNT 4.61 X10'6 (4.20-5.60); RED CELL DISTRIBUTION WIDTH 19.4 % (11.5-14.5); WHITE BLOOD COUNT 19.8 X10'3 (4.5-11.0)
[2019-03-16] MEDS: ipratropium/albuterol 3ml nebule NEB SCH ×6 (03:08→23:06)
[2019-03-16 03:19] LABS: ALBUMIN 2.1 G/DL (3.4-5.0); ANION GAP 4 (8-16); BLOOD UREA NITROGEN 78 MG/DL (7-18); BUN/CREATININE RATIO 41.1 (6.6-38.0); CHLORIDE 101 MMOL/L (99-107); GLUCOSE 173 MG/DL (70-104); POTASSIUM 4.2 MMOL/L (3.5-5.1); SODIUM 139 MMOL/L (135-145); TOTAL CARBON DIOXIDE 33.9 MMOL/L (24-32); TRIGLYCERIDES 85 MG/DL (20-135); eGFR 28 ML/MIN
[2019-03-16 03:26] LABS: ABG BASE EXCESS 4.7 mmol/L (-2.0-3.0); ABG HCO3 30.3 mmol/L (22.0-26.0); ABG PCO2 (T) 47.5 mmHg (35.0-45.0); ABG PH (T) 7.418 (7.350-7.450); ABG PO2 (T) 50.2 mmHg (83-108); ALLEN'S TEST POSITIVE; FCOHb 0.3 % (0.5-1.5); FMetHb 0.1 % (0.3-1.12); FO2Hb 86.7 % (94-100); PATIENT TEMPERATURE 35.9; PEEP 12 cm H2O; RESPIRATORY RATE 22 b/min; TIDAL VOLUME 400 mL; TOTAL HEMOGLOBIN 10.8 G/dl (12.0-16.0)
[2019-03-16] MEDS: midazolam 100mg in NS 100ml 100 ML IV PRN ×5 (04:14→22:02)
--- NOTE | 2019-03-16 06:34 | NUR ---
Problems reprioritized. Patient report given, questions answered & plan of care reviewed with Ha PATEL.
--- NOTE | 2019-03-16 06:37 | NUR ---
Patient in room CICU 2016. I have received report from AMANDA Wilder and had the opportunity to ask questions and assume patient care.
[2019-03-16] MEDS: FENTANYL-0.9 % NACL/PF 100 ML IV PRN ×3 (06:44→19:03)
[2019-03-16] MEDS: propofol 1000mg/100ml bottle 100 ML IV SCH ×3 (06:50→21:17)
--- NOTE | 2019-03-16 06:55 | NUR ---
Pt SpO2 86% on 100% FIO2 with PEEP 12 this morning. Pt desaturated to SpO2 78% with oral care slow to recover.
[2019-03-16] MEDS: docusate sodium 100mg/10ml UD cup PO SCH ×2 (07:52→19:16)
[2019-03-16] MEDS: pantoprazole 40 MG vial IV SCH (07:52)
[2019-03-16] MEDS: lactobacillus rhamnosus 10,000 MMU CELLS/CAPSULE PO SCH ×2 (07:53→19:17)
[2019-03-16] MEDS: cefepime 2g/NS 100ml ADVANTAGE 100 ML IV SCH ×2 (07:53→19:19)
[2019-03-16] MEDS: lisinopril 5mg tablet OGT SCH (07:53)
[2019-03-16] MEDS: heparin, porcine 5000 units/ml vial SQ SCH ×2 (07:53→19:17)
[2019-03-16] MEDS: carvedilol 6.25mg tablet OGT SCH ×2 (07:53→19:17)
[2019-03-16] MEDS: K and/or MAG REPLACEMENT MC SCH ×2 (07:54→19:19)
--- NOTE | 2019-03-16 09:53 | NUR ---
PEEP increased to 15 and set rate to 16 per new vent setting orders. Pt was unable to tolerate new vent settings. SpO2 decreased to 78%. Manual ventilation performed by RT Marianela. Pt was slow to recover. PEEP decreased to 12 and respiratory rate increased to 22. Pt SpO2 improved to 85%.
--- NOTE | 2019-03-16 10:00 | NUR ---
Dr. Shah at bedside PEEP increased to 15 set rate left at 22 bpm.
[2019-03-16] MEDS: DOBUTamine-DoBUTrex 500mg/D5W 250 ML IV SCH ×2 (10:18→21:16)
--- NOTE | 2019-03-16 11:42 | NUR ---
Reassessment: Pt tolerating TF at goal GRV WNL. LBM 03/11; MARK d/w RN regarding opioid antagonist per MD approval since on fentanyl. Hold water flushes per MD. Wt increased 20kg in one day likely error and correct wt ~113kg as on initial bed scale wt making BMI 39. No DM hx w/ A1C 6.9; will need official DM DX prior to d/c so RD can provide DM ed. Will continue to monitor. Recommendations: 1. Continuous Vital High Protein starting at 20ml/hr to advance as tolerated by 20ml q 8 hours to goal of 75ml/hr providing 1800 kcal, 158 g protein and 1512 ml free water and total volume of 1800 ml. 2. No free water flushes at this time per MD 3. Prealbumin q Sunday and 4. Daily weights 5. Routine bowel care; opioid antagonist per MD 6. Monitor need for DM education once stable if pt with new DM dx; current A1c is 6.9 with no hx DM in PMH 7. Wt per rx Addendum: 03/16/19 at [address] Amended: Links added.
[2019-03-16 12:00] LABS: ABG HCO3 32.6 mmol/L (22.0-26.0); ABG OXYGEN SATURATION 84.9 % (95-98); ABG PH (T) 7.367 (7.350-7.450); ABG PO2 (T) 51.4 mmHg (83-108); ALLEN'S TEST POSITIVE; FCOHb 0.3 % (0.5-1.5); FMetHb 0.2 % (0.3-1.12); FO2Hb 84.5 % (94-100); PEEP 15 cm H2O; RESPIRATORY RATE 22 b/min; TIDAL VOLUME 400 mL; TOTAL HEMOGLOBIN 10.6 G/dl (12.0-16.0)
--- NOTE | 2019-03-16 12:20 | NUR ---
Pt moved to room 2006, tolerated well. SpO2 actually improved to 90%.
--- NOTE | 2019-03-16 17:10 | NUR ---
Pt placed in Roto-prone bed. Programed to turn 62 degrees to left and right.
--- NOTE | 2019-03-16 18:21 | NUR ---
Problems reprioritized. Patient report given, questions answered & plan of care reviewed with AMANDA San.
--- NOTE | 2019-03-16 18:30 | NUR ---
Patient in room CICU 2006. I have received report from AMANDA Kaplan and had the opportunity to ask questions and assume patient care.
[2019-03-16] MEDS: insulin glargine (Lantus) pen - multi-dose SQ SCH (20:03)
[2019-03-17] VITALS (24 sets, daily range): BP systolic 144–181; BP diastolic 54–90
[2019-03-17] MEDS: propofol 1000mg/100ml bottle 100 ML IV SCH ×8 (00:20→20:45)
[2019-03-17] MEDS: FENTANYL-0.9 % NACL/PF 100 ML IV PRN ×4 (00:21→15:06)
--- NOTE | 2019-03-17 00:32 | NUR ---
Due to excessive peak pressuring of the vent and increased blood pressure, Fentanyl and Propofol continusou Addendum: 03/17/19 at 0033 by Mena Gonzalez RN continuously increased to maximum per protocol.
[2019-03-17] MEDS: mineral oil/petrolatum ophthal oint EACHEYE SCH ×4 (02:12→19:17)
[2019-03-17] MEDS: methylPREDNISolone sod succ 125mg/2ml vial IV SCH ×4 (02:12→19:12)
[2019-03-17] MEDS: insulin regular, human U-100 3ml vial - multi-dose SQ SCH ×4 (02:41→20:10)
[2019-03-17 02:47] LABS: BASOPHILS % (AUTO) 0.1 % (0-1); EOSINOPHILS % (AUTO) 0 % (0-6); HEMATOCRIT 31.5 % (35.0-45.0); HEMOGLOBIN 9.7 g/dl (12.0-16.0); LYMPHOCYTES # (AUTO) 0.4 X10'3 (1.1-4.8); LYMPHOCYTES % (AUTO) 2.5 % (21-51); MEAN CORPUSCULAR HEMOGLOBIN 21.3 PG (27.0-31.0); MEAN CORPUSCULAR HGB CONC 30.7 g/dL (33.0-36.5); MEAN CORPUSCULAR VOLUME 69.3 FL (78-98); MEAN PLATELET VOLUME 7.7 FL (7.4-10.4); MONOCYTES # (AUTO) 0.7 X10'3 (0-0.9); MONOCYTES % (AUTO) 3.8 % (2-12); NEUTROPHILS # (AUTO) 16.7 X10'3 (1.8-7.7); NEUTROPHILS % (AUTO) 93.6 % (42-75); PLATELET COUNT 386 X10'3 (140-440); RED BLOOD COUNT 4.54 X10'6 (4.20-5.60); RED CELL DISTRIBUTION WIDTH 19.6 % (11.5-14.5); WHITE BLOOD COUNT 17.9 X10'3 (4.5-11.0)
[2019-03-17 03:05] LABS: ALANINE AMINOTRANSFERASE 31 U/L (12-78); ALBUMIN/GLOBULIN RATIO 0.5 (1.1-1.5); ALKALINE PHOSPHATASE 68 IU/L (46-116); ANION GAP 4 (8-16); ASPARTATE AMINO TRANSFERASE 17 U/L (10-37); BILIRUBIN,TOTAL 0.4 MG/DL (0.1-1.0); BLOOD UREA NITROGEN 79 MG/DL (7-18); BUN/CREATININE RATIO 45.7 (6.6-38.0); CALCIUM 7.4 MG/DL (8.5-10.1); CHLORIDE 101 MMOL/L (99-107); CREATININE 1.73 MG/DL (0.40-0.90); GLUCOSE 194 MG/DL (70-104); MAGNESIUM 2.1 MG/DL (1.5-2.4); PHOSPHORUS 3.7 MG/DL (2.3-4.5); POTASSIUM 4.2 MMOL/L (3.5-5.1); SODIUM 137 MMOL/L (135-145); TOTAL CARBON DIOXIDE 31.6 MMOL/L (24-32); TOTAL PROTEIN 5.9 G/DL (6.4-8.2); eGFR 31 ML/MIN
[2019-03-17] MEDS: ipratropium/albuterol 3ml nebule NEB SCH ×6 (03:09→23:11)
[2019-03-17 04:00] LABS: ABG BASE EXCESS 8.2 mmol/L (-2.0-3.0); ABG HCO3 34.7 mmol/L (22.0-26.0); ABG OXYGEN SATURATION 92.2 % (95-98); ABG PCO2 (T) 58.8 mmHg (35.0-45.0); ABG PH (T) 7.389 (7.350-7.450); ALLEN'S TEST POSITIVE; FCOHb 0.1 % (0.5-1.5); FMetHb 0.1 % (0.3-1.12); PATIENT TEMPERATURE 37.2; PEEP 15 cm H2O; RESPIRATORY RATE 22 b/min; TIDAL VOLUME 400 mL
--- NOTE | 2019-03-17 05:47 | NUR ---
Darcy Farley aware of maxed out Fentanyl, Propofol, and Versed.
--- NOTE | 2019-03-17 06:15 | NUR ---
Pt weighing in at 697.2 kg on the Rotoprone bed, not noted in weight.
--- NOTE | 2019-03-17 06:17 | NUR ---
Problems reprioritized. Patient report given, questions answered & plan of care reviewed with AMANDA Kaplan.
--- NOTE | 2019-03-17 06:25 | NUR ---
Patient in room CICU 2006. I have received report from AMANDA San and had the opportunity to ask questions and assume patient care.
[2019-03-17] MEDS: heparin, porcine 5000 units/ml vial SQ SCH ×2 (07:28→19:12)
[2019-03-17] MEDS: docusate sodium 100mg/10ml UD cup PO SCH ×2 (07:29→19:11)
[2019-03-17] MEDS: pantoprazole 40 MG vial IV SCH (07:29)
[2019-03-17] MEDS: cefepime 2g/NS 100ml ADVANTAGE 100 ML IV SCH ×2 (07:29→19:11)
[2019-03-17] MEDS: carvedilol 6.25mg tablet OGT SCH ×2 (07:29→19:06)
[2019-03-17] MEDS: lisinopril 5mg tablet OGT SCH (07:29)
[2019-03-17] MEDS: lactobacillus rhamnosus 10,000 MMU CELLS/CAPSULE PO SCH ×2 (07:29→19:11)
[2019-03-17] MEDS: K and/or MAG REPLACEMENT MC SCH ×2 (07:30→19:16)
--- NOTE | 2019-03-17 08:30 | NUR ---
Pt started on prone therapy. 62 degrees to the left with one minute hold, 62 degrees to the right with one minute hold.
[2019-03-17] MEDS ORDERED: furosemide 40mg/4ml inj IV ONE (09:10)
[2019-03-17 09:54] LABS: PREALBUMIN 26.9 MG/DL (19-36)
[2019-03-17] MEDS: DOBUTamine-DoBUTrex 500mg/D5W 250 ML IV SCH ×2 (10:19→20:45)
[2019-03-17] MEDS ORDERED: amLODIPine 5mg tablet PO ONE (10:40)
--- NOTE | 2019-03-17 11:55 | NUR ---
Attempted to place pt in supine position for 45 min interval starting at 1145 hrs. She was unable to tolerate this, SpO2 decreased to 85% after just a few minutes. Prone therapy resumed.
--- NOTE | 2019-03-17 12:43 | NUR ---
Dr. Rosenberg in to round on pt. Losartan added to address hypertension. Addendum: 03/17/19 at 1244 by Eusebio Reno RN This occurred at 1125 hrs.
--- NOTE | 2019-03-17 18:16 | NUR ---
Problems reprioritized. Patient report given, questions answered & plan of care reviewed with AMANDA San.
--- NOTE | 2019-03-17 18:20 | NUR ---
Patient in room CICU 2006. I have received report from AMANDA Kaplan and had the opportunity to ask questions and assume patient care.
[2019-03-17] MEDS: insulin glargine (Lantus) pen - multi-dose SQ SCH (20:11)
--- NOTE | 2019-03-17 20:30 | NUR ---
Per report, Dr Golden is wanting to start the Relistor, not the lactulose at this time.
[2019-03-17] MEDS: midazolam 100mg in NS 100ml 100 ML IV PRN (20:44)
--- NOTE | 2019-03-17 21:58 | NUR ---
Pt weighing in at 700.4 kg on the Rotoprone bed, not noted in weight.
--- NOTE | 2019-03-17 23:17 | NUR ---
Pt overbreathing Vent, Propofol increased.
[2019-03-18] VITALS (25 sets, daily range): BP systolic 94–172; BP diastolic 48–87
[2019-03-18] MEDS: propofol 1000mg/100ml bottle 100 ML IV SCH ×8 (00:05→21:37)
--- NOTE | 2019-03-18 00:14 | NUR ---
CO2 detector only lasting approx 3-4 hours before going bad, not currently replaced as we have no more chambers on the unit to replace it.
--- NOTE | 2019-03-18 01:30 | NUR ---
Attempted to supine pt to swap out Nguyễn for tape to secure ETT and bathe pt. ETT securement took approx 20 minutes at which time pts O2 saturations dropped to 55%. She recovered back into the 90's within 20 minutes of return to prone positioning
[2019-03-18] MEDS: methylPREDNISolone sod succ 125mg/2ml vial IV SCH ×4 (01:58→19:59)
[2019-03-18] MEDS: mineral oil/petrolatum ophthal oint EACHEYE SCH ×4 (01:58→19:58)
[2019-03-18] MEDS: insulin regular, human U-100 3ml vial - multi-dose SQ SCH ×4 (02:14→20:30)
[2019-03-18 02:45] LABS: BASOPHILS % (AUTO) 0 % (0-1); EOSINOPHILS % (AUTO) 0 % (0-6); HEMOGLOBIN 10.3 g/dl (12.0-16.0); LYMPHOCYTES # (AUTO) 0.3 X10'3 (1.1-4.8); LYMPHOCYTES % (AUTO) 1.9 % (21-51); MEAN CORPUSCULAR HEMOGLOBIN 21.4 PG (27.0-31.0); MEAN CORPUSCULAR HGB CONC 30.2 g/dL (33.0-36.5); MEAN CORPUSCULAR VOLUME 70.9 FL (78-98); MEAN PLATELET VOLUME 8.5 FL (7.4-10.4); MONOCYTES # (AUTO) 1.1 X10'3 (0-0.9); NEUTROPHILS # (AUTO) 16.2 X10'3 (1.8-7.7); NEUTROPHILS % (AUTO) 92.1 % (42-75); PLATELET COUNT 380 X10'3 (140-440); RED CELL DISTRIBUTION WIDTH 19.4 % (11.5-14.5); WHITE BLOOD COUNT 17.6 X10'3 (4.5-11.0)
[2019-03-18 02:48] LABS: ALANINE AMINOTRANSFERASE 35 U/L (12-78); ALBUMIN 2.2 G/DL (3.4-5.0); ALBUMIN/GLOBULIN RATIO 0.6 (1.1-1.5); ALKALINE PHOSPHATASE 66 IU/L (46-116); ANION GAP 2 (8-16); ASPARTATE AMINO TRANSFERASE 24 U/L (10-37); BILIRUBIN,TOTAL 0.3 MG/DL (0.1-1.0); BLOOD UREA NITROGEN 81 MG/DL (7-18); BUN/CREATININE RATIO 50.6 (6.6-38.0); CALCIUM 7.9 MG/DL (8.5-10.1); CHLORIDE 104 MMOL/L (99-107); GLUCOSE 145 MG/DL (70-104); MAGNESIUM 2.4 MG/DL (1.5-2.4); PHOSPHORUS 4.9 MG/DL (2.3-4.5); POTASSIUM 4.7 MMOL/L (3.5-5.1); SODIUM 143 MMOL/L (135-145); TOTAL CARBON DIOXIDE 37.3 MMOL/L (24-32); eGFR 34 ML/MIN
[2019-03-18] MEDS: ipratropium/albuterol 3ml nebule NEB SCH ×6 (03:04→23:19)
[2019-03-18 03:38] LABS: PLATELET ESTIMATE NORMAL
[2019-03-18 03:39] LABS: ANISOCYTOSIS 2+; STOMATOCYTES 1+
--- NOTE | 2019-03-18 04:00 | NUR ---
Attempted to supine pt, upon immediately turning her over, O2 saturations dropped to 75. Returned to proning within 2 minutes.
--- NOTE | 2019-03-18 04:27 | NUR ---
LANNY Barcenas aware of pt having increased peak pressures as high as 56. Sedation will continue to be increased for oxygenation and pressure reduction.
[2019-03-18] MEDS: FENTANYL-0.9 % NACL/PF 100 ML IV PRN ×3 (05:10→22:25)
[2019-03-18 05:41] LABS: ABG BASE EXCESS 5.2 mmol/L (-2.0-3.0); ABG HCO3 32.5 mmol/L (22.0-26.0); ABG PCO2 (T) 61.3 mmHg (35.0-45.0); ABG PH (T) 7.342 (7.350-7.450); ABG PO2 (T) 52.1 mmHg (83-108); ALLEN'S TEST POSITIVE; FCOHb 0.2 % (0.5-1.5); FMetHb 0.2 % (0.3-1.12); FO2Hb 84.7 % (94-100); PEEP 15 cm H2O; RESPIRATORY RATE 22 b/min; TIDAL VOLUME 400 mL; TOTAL HEMOGLOBIN 11.7 G/dl (12.0-16.0)
--- NOTE | 2019-03-18 06:30 | NUR ---
Problems reprioritized. Patient report given, questions answered & plan of care reviewed with AMANDA Kaplan.
--- NOTE | 2019-03-18 06:48 | NUR ---
Patient in room CICU 2006. I have received report from AMANDA San and had the opportunity to ask questions and assume patient care.
[2019-03-18] MEDS: midazolam 100mg in NS 100ml 100 ML IV PRN ×2 (07:29→21:40)
[2019-03-18] MEDS: docusate sodium 100mg/10ml UD cup PO SCH ×2 (07:39→19:59)
[2019-03-18] MEDS: heparin, porcine 5000 units/ml vial SQ SCH ×2 (07:39→19:58)
[2019-03-18] MEDS: pantoprazole 40 MG vial IV SCH (07:39)
[2019-03-18] MEDS: amLODIPine 5mg tablet PO SCH (07:40)
[2019-03-18] MEDS: carvedilol 6.25mg tablet OGT SCH ×2 (07:40→19:58)
[2019-03-18] MEDS: lisinopril 5mg tablet OGT SCH (07:40)
[2019-03-18] MEDS: K and/or MAG REPLACEMENT MC SCH ×2 (07:41→19:59)
[2019-03-18] MEDS: lactobacillus rhamnosus 10,000 MMU CELLS/CAPSULE PO SCH ×2 (07:41→19:58)
[2019-03-18] MEDS: cefepime 2g/NS 100ml ADVANTAGE 100 ML IV SCH ×2 (07:46→19:58)
[2019-03-18] MEDS ORDERED: losartan 50mg tablet PO SCH (08:00)
[2019-03-18] MEDS ORDERED: losartan 25mg tablet PO SCH (08:31)
[2019-03-18] MEDS ORDERED: losartan 25mg tablet PO ONE (08:39)
[2019-03-18] MEDS ORDERED: furosemide 40mg/4ml inj IV ONE (09:55)
[2019-03-18] MEDS: DOBUTamine-DoBUTrex 500mg/D5W 250 ML IV SCH (12:34)
[2019-03-18] MEDS ORDERED: CISatracurium **Bolus** 2 mg/ml inj IV ONE (15:00)
--- NOTE | 2019-03-18 15:15 | NUR ---
Attempted to supinate ,pt tolerated for about 15 mins, assessed ETT tape with RT, returned to prone. Shortly afterwards pt became agitated, tachypneic RR 30s, with high peak pressures. SpO2 down to 72%. Pt manually ventilated by RT, sedation increased. Dr. Golden came to bedside and orded one time dose of 10 mg Nimbex IVP.
--- NOTE | 2019-03-18 18:20 | NUR ---
Problems reprioritized. Patient report given, questions answered & plan of care reviewed with AMANDA San.
--- NOTE | 2019-03-18 18:30 | NUR ---
Patient in room CICU 2006. I have received report from AMANDA Kaplan and had the opportunity to ask questions and assume patient care.
[2019-03-18] MEDS: insulin glargine (Lantus) pen - multi-dose SQ SCH (20:31)
--- NOTE | 2019-03-18 21:35 | NUR ---
Pt weighing in at 699.8 kg on the Rotoprone bed, not noted in weight.
--- NOTE | 2019-03-18 21:50 | NUR ---
Attempted to supine pt, she did not tolerate. Pt was supine for approx 15 minutes while ETT securement tape changed out, O2 sat dropped to 67 with a very slow recovery to 87 after approx 30 minutes.
[2019-03-19] VITALS (24 sets, daily range): BP systolic 124–182; BP diastolic 49–83
[2019-03-19] MEDS: propofol 1000mg/100ml bottle 100 ML IV SCH ×10 (00:05→22:54)
[2019-03-19 00:51] LABS: ABG BASE EXCESS 5.8 mmol/L (-2.0-3.0); ABG HCO3 32.5 mmol/L (22.0-26.0); ABG OXYGEN SATURATION 91.4 % (95-98); ABG PCO2 (T) 59.4 mmHg (35.0-45.0); ABG PH (T) 7.359 (7.350-7.450); ABG PO2 (T) 65.2 mmHg (83-108); ALLEN'S TEST POSITIVE; FMetHb 0.1 % (0.3-1.12); FO2Hb 91.3 % (94-100); PATIENT TEMPERATURE 37.5; PEEP 15 cm H2O; RESPIRATORY RATE 22 b/min; TIDAL VOLUME 400 mL; TOTAL HEMOGLOBIN 11.4 G/dl (12.0-16.0)
--- NOTE | 2019-03-19 01:02 | NUR ---
Attempted to supinate pt, after approx 3 minutes, O2 sat down to 80%, returned to prone positioning.
[2019-03-19] MEDS: mineral oil/petrolatum ophthal oint EACHEYE SCH ×4 (01:24→20:10)
[2019-03-19] MEDS: methylPREDNISolone sod succ 125mg/2ml vial IV SCH ×4 (01:24→20:10)
[2019-03-19] MEDS: insulin regular, human U-100 3ml vial - multi-dose SQ SCH ×4 (01:36→20:53)
[2019-03-19 01:50] LABS: BASOPHILS % (AUTO) 0.1 % (0-1); EOSINOPHILS % (AUTO) 0 % (0-6); LYMPHOCYTES # (AUTO) 0.4 X10'3 (1.1-4.8); LYMPHOCYTES % (AUTO) 1.8 % (21-51); MONOCYTES # (AUTO) 1.1 X10'3 (0-0.9); MONOCYTES % (AUTO) 5.5 % (2-12); NEUTROPHILS # (AUTO) 17.9 X10'3 (1.8-7.7); NEUTROPHILS % (AUTO) 92.6 % (42-75)
[2019-03-19 02:06] LABS: ALANINE AMINOTRANSFERASE 32 U/L (12-78); ALBUMIN/GLOBULIN RATIO 0.5 (1.1-1.5); ALKALINE PHOSPHATASE 60 IU/L (46-116); ANION GAP 1 (8-16); ASPARTATE AMINO TRANSFERASE 23 U/L (10-37); BILIRUBIN,TOTAL 0.3 MG/DL (0.1-1.0); BLOOD UREA NITROGEN 77 MG/DL (7-18); CHLORIDE 105 MMOL/L (99-107); CREATININE 1.35 MG/DL (0.40-0.90); GLUCOSE 121 MG/DL (70-104); MAGNESIUM 2.2 MG/DL (1.5-2.4); PHOSPHORUS 4.8 MG/DL (2.3-4.5); POTASSIUM 4.9 MMOL/L (3.5-5.1); SODIUM 141 MMOL/L (135-145); TOTAL CARBON DIOXIDE 35.5 MMOL/L (24-32); TOTAL PROTEIN 5.8 G/DL (6.4-8.2); eGFR 41 ML/MIN
[2019-03-19 02:30] LABS: HEMATOCRIT 34.3 % (35.0-45.0); HEMOGLOBIN 10.7 g/dl (12.0-16.0); MEAN CORPUSCULAR VOLUME 70.2 FL (78-98); RED BLOOD COUNT 4.89 X10'6 (4.20-5.60); WHITE BLOOD COUNT 19.7 X10'3 (4.5-11.0)
[2019-03-19 02:31] LABS: MEAN CORPUSCULAR HEMOGLOBIN 21.8 PG (27.0-31.0); MEAN CORPUSCULAR HGB CONC 31.1 g/dL (33.0-36.5); MEAN PLATELET VOLUME 8.1 FL (7.4-10.4); PLATELET COUNT 370 X10'3 (140-440); RED CELL DISTRIBUTION WIDTH 19.1 % (11.5-14.5)
[2019-03-19] MEDS: midazolam 100mg in NS 100ml 100 ML IV PRN ×5 (02:40→22:41)
[2019-03-19] MEDS: FENTANYL-0.9 % NACL/PF 100 ML IV PRN ×7 (02:41→22:33)
[2019-03-19] MEDS: DOBUTamine-DoBUTrex 500mg/D5W 250 ML IV SCH ×2 (02:41→14:04)
[2019-03-19] MEDS: ipratropium/albuterol 3ml nebule NEB SCH ×6 (03:16→23:10)
[2019-03-19 03:21] LABS: ANISOCYTOSIS 2+; PLATELET ESTIMATE NORMAL
[2019-03-19 03:22] LABS: LARGE PLATELETS FEW; MICROCYTOSIS 1+
--- NOTE | 2019-03-19 05:27 | NUR ---
Turned pt supine for morning CXR and immediately back to prone position after, O2 sat dropped to 67%.
--- NOTE | 2019-03-19 06:30 | NUR ---
Problems reprioritized. Patient report given, questions answered & plan of care reviewed with AMANDA Andersen.
--- NOTE | 2019-03-19 06:30 | NUR ---
Patient in room CICU 2006. I have received report from AMANAD San and had the opportunity to ask questions and assume patient care.
[2019-03-19] MEDS: cefepime 2g/NS 100ml ADVANTAGE 100 ML IV SCH (07:36)
[2019-03-19] MEDS: methylnaltrexone br 12mg/0.6ml inj***SubQ only SQ SCH (07:37)
[2019-03-19] MEDS: docusate sodium 100mg/10ml UD cup PO SCH ×2 (07:37→20:10)
[2019-03-19] MEDS: pantoprazole 40 MG vial IV SCH (07:37)
[2019-03-19] MEDS: heparin, porcine 5000 units/ml vial SQ SCH ×2 (07:37→20:11)
[2019-03-19] MEDS: amLODIPine 5mg tablet PO SCH (07:38)
[2019-03-19] MEDS: carvedilol 6.25mg tablet OGT SCH ×2 (07:38→20:11)
[2019-03-19] MEDS: lisinopril 5mg tablet OGT SCH (07:38)
[2019-03-19] MEDS: lactobacillus rhamnosus 10,000 MMU CELLS/CAPSULE PO SCH ×2 (07:38→20:10)
[2019-03-19] MEDS: K and/or MAG REPLACEMENT MC SCH ×2 (08:00→20:00)
--- NOTE | 2019-03-19 09:00 | NUR ---
Pt able to tolerate supine position for 10 mins with sats dropping no lower than 85%
[2019-03-19] MEDS: furosemide inj 100 ML IV SCH (11:24)
--- NOTE | 2019-03-19 16:05 | NUR ---
Pt tolerated 30+ min supine while tubing was changed, interdry changed, and ET tube tape changed. Sats maintained 87% or higher
--- NOTE | 2019-03-19 16:59 | NUR ---
Reassessment: Pt continues to tolerate TF at goal GRV WNL. LBM 03/11; RN reports active bowel sounds and relistor was administered this morning. RD d/w bedside RN regarding PRN lactulose not being administered, RN reports waiting to see if relistor works. Pt with 2-2.5L positive fluid balance since admit and needs to be diuresed per MD. Will continue to use 113kg scaled wt to determine pt EN needs given 20kg increase with only 2-2.5L positive fluid balance unlikely. Will continue to monitor. Recommendations: 1. Continuous Vital High Protein starting at 20ml/hr to advance as tolerated by 20ml q 8 hours to goal of 75ml/hr providing 1800 kcal, 158 g protein and 1512 ml free water and total volume of 1800 ml. 2. No free water flushes at this time per MD 3. Prealbumin q Sunday and 4. Daily weights 5. Routine bowel care; opioid antagonist per MD 6. Monitor need for DM education once stable if pt with new DM dx; current A1c is 6.9 with no hx DM in PMH 7. Wt per rx Addendum: 03/19/19 at [address] RD Approves Addendum: 03/19/19 at [address] Amended: Links added.
[2019-03-19] MEDS ORDERED: sodium phosphate inj. 30 MMOL in dextrose 5%-water 250 ML IV PRN (18:25)
[2019-03-19] MEDS ORDERED: sodium phosphate inj. 15 MMOL in dextrose 5%-water 150 ML IV PRN (18:25)
[2019-03-19] MEDS ORDERED: magnesium Cl slow-release 64mg tablet PO PRN (18:25)
[2019-03-19] MEDS ORDERED: Neutra Phos packet OGT PRN (18:25)
[2019-03-19] MEDS ORDERED: magnesium 2GM in 50ml NS 50 ML IV PRN (18:25)
[2019-03-19] MEDS ORDERED: magnesium 4gm in 100ml NS 100 ML IV PRN (18:25)
--- NOTE | 2019-03-19 18:29 | NUR ---
Patient in room CICU 2007. I have received report from Nathaly PATEL, and had the opportunity to ask questions and assume patient care.
[2019-03-19 19:01] LABS: ALBUMIN 2.1 G/DL (3.4-5.0); ANION GAP 5 (8-16); BLOOD UREA NITROGEN 78 MG/DL (7-18); CALCIUM 8.1 MG/DL (8.5-10.1); CHLORIDE 105 MMOL/L (99-107); GLUCOSE 134 MG/DL (70-104); MAGNESIUM 2.2 MG/DL (1.5-2.4); PHOSPHORUS 4.1 MG/DL (2.3-4.5); SODIUM 145 MMOL/L (135-145); TOTAL CARBON DIOXIDE 35.1 MMOL/L (24-32); eGFR 43 ML/MIN
[2019-03-19] MEDS: CEFEPIME 2gm in D5W 50mL 50 ML IV SCH (20:10)
[2019-03-19] MEDS: insulin glargine (Lantus) pen - multi-dose SQ SCH (20:53)
--- NOTE | 2019-03-19 23:15 | NUR ---
PT's O2 sat has continuously been between 92-94%. FiO2 decreased from 90% to 85%. Will continue to monitor.
[2019-03-20] VITALS (24 sets, daily range): BP systolic 123–202; BP diastolic 44–93
[2019-03-20 01:38] LABS: ALANINE AMINOTRANSFERASE 35 U/L (12-78); ALBUMIN 2.2 G/DL (3.4-5.0); ASPARTATE AMINO TRANSFERASE 23 U/L (10-37); BLOOD UREA NITROGEN 80 MG/DL (7-18); BUN/CREATININE RATIO 57.6 (6.6-38.0); CALCIUM 8.2 MG/DL (8.5-10.1); CHLORIDE 104 MMOL/L (99-107); CREATININE 1.39 MG/DL (0.40-0.90); MAGNESIUM 2.2 MG/DL (1.5-2.4); POTASSIUM 4.7 MMOL/L (3.5-5.1); PREALBUMIN 45.5 MG/DL (19-36); SODIUM 141 MMOL/L (135-145); eGFR 40 ML/MIN
[2019-03-20] MEDS: FENTANYL-0.9 % NACL/PF 100 ML IV PRN ×7 (01:47→23:57)
[2019-03-20] MEDS: propofol 1000mg/100ml bottle 100 ML IV SCH ×10 (01:47→22:48)
[2019-03-20 01:51] LABS: BASOPHILS # (AUTO) 0.1 X10'3 (0-0.2); EOSINOPHILS % (AUTO) 0 % (0-6); MONOCYTES # (AUTO) 1.1 X10'3 (0-0.9)
[2019-03-20 01:52] LABS: ALBUMIN/GLOBULIN RATIO 0.6 (1.1-1.5); ALKALINE PHOSPHATASE 61 IU/L (46-116); ANION GAP 2 (8-16); BILIRUBIN,TOTAL 0.3 MG/DL (0.1-1.0); GLUCOSE 129 MG/DL (70-104); TOTAL PROTEIN 6.2 G/DL (6.4-8.2)
[2019-03-20 01:55] LABS: BASOPHILS % (AUTO) 0.4 % (0-1); HEMATOCRIT 35.3 % (35.0-45.0); HEMOGLOBIN 10.8 g/dl (12.0-16.0); LYMPHOCYTES # (AUTO) 0.5 X10'3 (1.1-4.8); LYMPHOCYTES % (AUTO) 2.1 % (21-51); MEAN CORPUSCULAR HEMOGLOBIN 21.2 PG (27.0-31.0); MEAN CORPUSCULAR HGB CONC 30.4 g/dL (33.0-36.5); MEAN CORPUSCULAR VOLUME 69.6 FL (78-98); MEAN PLATELET VOLUME 8.6 FL (7.4-10.4); MONOCYTES % (AUTO) 4.6 % (2-12); NEUTROPHILS # (AUTO) 21.2 X10'3 (1.8-7.7); NEUTROPHILS % (AUTO) 92.9 % (42-75); PLATELET COUNT 362 X10'3 (140-440); RED BLOOD COUNT 5.07 X10'6 (4.20-5.60); RED CELL DISTRIBUTION WIDTH 19.6 % (11.5-14.5); WHITE BLOOD COUNT 22.8 X10'3 (4.5-11.0)
[2019-03-20] MEDS: methylPREDNISolone sod succ 125mg/2ml vial IV SCH ×4 (01:59→20:00)
[2019-03-20] MEDS: mineral oil/petrolatum ophthal oint EACHEYE SCH ×4 (01:59→20:00)
[2019-03-20] MEDS: insulin regular, human U-100 3ml vial - multi-dose SQ SCH ×4 (02:11→20:43)
[2019-03-20 02:30] LABS: PLATELET ESTIMATE NORMAL
[2019-03-20 02:31] LABS: ANISOCYTOSIS 2+; MICROCYTOSIS 1+
[2019-03-20 03:05] LABS: ABG BASE EXCESS 7.7 mmol/L (-2.0-3.0); ABG HCO3 32.6 mmol/L (22.0-26.0); ABG OXYGEN SATURATION 83.6 % (95-98); ABG PCO2 (T) 48.6 mmHg (35.0-45.0); ABG PH (T) 7.447 (7.350-7.450); ABG PO2 (T) 47.4 mmHg (83-108); ALLEN'S TEST POSITIVE; FCOHb 0.1 % (0.5-1.5); FMetHb 0.1 % (0.3-1.12); FO2Hb 83.4 % (94-100); PATIENT TEMPERATURE 37.5; PEEP 15 cm H2O; RESPIRATORY RATE 22 b/min; TIDAL VOLUME 400 mL
[2019-03-20] MEDS: ipratropium/albuterol 3ml nebule NEB SCH ×6 (03:12→23:13)
--- NOTE | 2019-03-20 03:20 | NUR ---
PT was placed in supine position and personal hygiene was performed. PT tolerated fairly well with O2 sat dropping to 86%. All pads were placed back on PT. All tubing secured. PT placed back in the prone position and rotation started. In total PT was in supine position for roughly 45 mins. Will continue to monitor.
[2019-03-20] MEDS: DOBUTamine-DoBUTrex 500mg/D5W 250 ML IV SCH ×2 (03:28→16:21)
[2019-03-20] MEDS: hydrALAZINE 20mg/ml inj. IV PRN (04:03)
--- NOTE | 2019-03-20 04:16 | NUR ---
PRN Hydralazine given d/t SBP being greater than 200. PT tolerated well, SBP currently less than 160. Will continue to monitor.
--- NOTE | 2019-03-20 06:36 | NUR ---
Problems reprioritized. Patient report given, questions answered & plan of care reviewed with Nathaly PATEL.
--- NOTE | 2019-03-20 06:41 | NUR ---
Patient in room CICU 2006. I have received report from AMANDA Perez and had the opportunity to ask questions and assume patient care.
[2019-03-20 07:06] LABS: ALBUMIN 2.2 G/DL (3.4-5.0); ANION GAP 5 (8-16); BLOOD UREA NITROGEN 83 MG/DL (7-18); BUN/CREATININE RATIO 64.8 (6.6-38.0); CALCIUM 7.9 MG/DL (8.5-10.1); CHLORIDE 104 MMOL/L (99-107); CREATININE 1.28 MG/DL (0.40-0.90); GLUCOSE 110 MG/DL (70-104); MAGNESIUM 2.2 MG/DL (1.5-2.4); PHOSPHORUS 4.2 MG/DL (2.3-4.5); POTASSIUM 4.5 MMOL/L (3.5-5.1); SODIUM 146 MMOL/L (135-145); TOTAL CARBON DIOXIDE 36.8 MMOL/L (24-32); eGFR 44 ML/MIN
[2019-03-20] MEDS: midazolam 100mg in NS 100ml 100 ML IV PRN ×4 (07:37→23:33)
[2019-03-20] MEDS: CEFEPIME 2gm in D5W 50mL 50 ML IV SCH (07:37)
[2019-03-20] MEDS: carvedilol 6.25mg tablet OGT SCH ×2 (07:41→20:00)
[2019-03-20] MEDS: lisinopril 5mg tablet OGT SCH (07:41)
[2019-03-20] MEDS: heparin, porcine 5000 units/ml vial SQ SCH ×2 (07:41→20:01)
[2019-03-20] MEDS: pantoprazole 40 MG vial IV SCH (07:41)
[2019-03-20] MEDS: docusate sodium 100mg/10ml UD cup PO SCH (07:41)
[2019-03-20] MEDS: amLODIPine 5mg tablet PO SCH (07:41)
[2019-03-20] MEDS: lactobacillus rhamnosus 10,000 MMU CELLS/CAPSULE PO SCH (07:42)
[2019-03-20] MEDS: K and/or MAG REPLACEMENT MC SCH ×2 (08:00→20:00)
[2019-03-20] MEDS ORDERED: dextrose ORAL solution 15 GM/59 ML bottle OGT PRN ×2 (12:17)
[2019-03-20 12:49] LABS: ALBUMIN 2.2 G/DL (3.4-5.0); ANION GAP 7 (8-16); BLOOD UREA NITROGEN 86 MG/DL (7-18); BUN/CREATININE RATIO 62.3 (6.6-38.0); CALCIUM 7.9 MG/DL (8.5-10.1); CHLORIDE 103 MMOL/L (99-107); CREATININE 1.38 MG/DL (0.40-0.90); GLUCOSE 137 MG/DL (70-104); MAGNESIUM 2.1 MG/DL (1.5-2.4); PHOSPHORUS 4.5 MG/DL (2.3-4.5); POTASSIUM 4.6 MMOL/L (3.5-5.1); SODIUM 147 MMOL/L (135-145); TOTAL CARBON DIOXIDE 37.3 MMOL/L (24-32); eGFR 40 ML/MIN
--- NOTE | 2019-03-20 15:28 | NUR ---
Follow up: Patient's sodium 146, Per MD patient will receive water flush 300 ml q 6 hours, bedside RN placed order. Reassessment: Pt continues to tolerate TF at goal GRV WNL. LBM 03/11; RN reports active bowel sounds and relistor was administered this morning. RD d/w bedside RN regarding PRN lactulose not being administered, RN reports waiting to see if relistor works. Pt with 2-2.5L positive fluid balance since admit and needs to be diuresed per MD. Will continue to use 113kg scaled wt to determine pt EN needs given 20kg increase with only 2-2.5L positive fluid balance unlikely. Will continue to monitor. Recommendations: 1. Continuous Vital High Protein starting at 20ml/hr to advance as tolerated by 20ml q 8 hours to goal of 75ml/hr providing 1800 kcal, 158 g protein and 1512 ml free water and total volume of 1800 ml. 2. additional water flush 300 ml q 6 hours per MD 3. Prealbumin q Sunday and 4. Daily weights 5. Routine bowel care; opioid antagonist per MD 6. Monitor need for DM education once stable if pt with new DM dx; current A1c is 6.9 with no hx DM in PMH 7. Wt per rx Addendum: 03/20/19 at [address] Amended: Links added.
--- NOTE | 2019-03-20 16:00 | NUR ---
Pt tolerated supine for 45 mins. ETT dressing retaped
--- NOTE | 2019-03-20 18:12 | NUR ---
Problems reprioritized. Patient report given, questions answered & plan of care reviewed with AMANDA Perez.
--- NOTE | 2019-03-20 18:26 | NUR ---
Patient in room CICU 2007. I have received report from Nathaly PATEL, and had the opportunity to ask questions and assume patient care.
[2019-03-20 18:44] LABS: ALBUMIN 2.1 G/DL (3.4-5.0); ANION GAP 4 (8-16); BLOOD UREA NITROGEN 85 MG/DL (7-18); BUN/CREATININE RATIO 64.4 (6.6-38.0); CALCIUM 7.9 MG/DL (8.5-10.1); CHLORIDE 104 MMOL/L (99-107); CREATININE 1.32 MG/DL (0.40-0.90); GLUCOSE 126 MG/DL (70-104); MAGNESIUM 2.1 MG/DL (1.5-2.4); PHOSPHORUS 4.8 MG/DL (2.3-4.5); POTASSIUM 4.6 MMOL/L (3.5-5.1); SODIUM 145 MMOL/L (135-145); TOTAL CARBON DIOXIDE 37.5 MMOL/L (24-32); eGFR 42 ML/MIN
[2019-03-20] MEDS: docusate sodium 100mg/10ml UD cup OGT SCH (20:00)
[2019-03-20] MEDS ORDERED: cefepime 2g/NS 100ml ADVANTAGE 100 ML IV SCH (20:00)
[2019-03-20] MEDS: lactobacillus rhamnosus 10,000 MMU CELLS/CAPSULE OGT SCH (20:01)
[2019-03-20] MEDS: insulin glargine (Lantus) pen - multi-dose SQ SCH (20:44)
--- NOTE | 2019-03-20 22:00 | NUR ---
PT placed in supine position for approx 45 min, tolerated fairly well. O2 sat dropped to high 70's. Pt quickly recovered when back in prone position. RT changed tape to secure ETT. Will continue to monitor.
[2019-03-21] VITALS (24 sets, daily range): BP systolic 112–187; BP diastolic 43–92
[2019-03-21 01:15] LABS: BASOPHILS # (AUTO) 0.1 X10'3 (0-0.2); BASOPHILS % (AUTO) 0.4 % (0-1); EOSINOPHILS % (AUTO) 0 % (0-6); HEMATOCRIT 35.2 % (35.0-45.0); HEMOGLOBIN 10.8 g/dl (12.0-16.0); LYMPHOCYTES # (AUTO) 0.6 X10'3 (1.1-4.8); LYMPHOCYTES % (AUTO) 2.9 % (21-51); MEAN CORPUSCULAR HEMOGLOBIN 21.3 PG (27.0-31.0); MEAN CORPUSCULAR HGB CONC 30.6 g/dL (33.0-36.5); MEAN CORPUSCULAR VOLUME 69.5 FL (78-98); MEAN PLATELET VOLUME 8.8 FL (7.4-10.4); MONOCYTES # (AUTO) 1.1 X10'3 (0-0.9); MONOCYTES % (AUTO) 5.3 % (2-12); NEUTROPHILS # (AUTO) 19.2 X10'3 (1.8-7.7); NEUTROPHILS % (AUTO) 91.4 % (42-75); PLATELET COUNT 365 X10'3 (140-440); RED BLOOD COUNT 5.06 X10'6 (4.20-5.60); RED CELL DISTRIBUTION WIDTH 19.9 % (11.5-14.5); WHITE BLOOD COUNT 21.1 X10'3 (4.5-11.0)
[2019-03-21 01:29] LABS: ALANINE AMINOTRANSFERASE 31 U/L (12-78); ALBUMIN 2.1 G/DL (3.4-5.0); ALBUMIN/GLOBULIN RATIO 0.5 (1.1-1.5); ALKALINE PHOSPHATASE 56 IU/L (46-116); ANION GAP 4 (8-16); ASPARTATE AMINO TRANSFERASE 20 U/L (10-37); BILIRUBIN,TOTAL 0.2 MG/DL (0.1-1.0); BLOOD UREA NITROGEN 87 MG/DL (7-18); BUN/CREATININE RATIO 63.5 (6.6-38.0); CALCIUM 8.1 MG/DL (8.5-10.1); CHLORIDE 103 MMOL/L (99-107); CREATININE 1.37 MG/DL (0.40-0.90); GLUCOSE 134 MG/DL (70-104); MAGNESIUM 2.2 MG/DL (1.5-2.4); POTASSIUM 4.5 MMOL/L (3.5-5.1); SODIUM 145 MMOL/L (135-145); TOTAL CARBON DIOXIDE 38.2 MMOL/L (24-32); eGFR 41 ML/MIN
[2019-03-21] MEDS: propofol 1000mg/100ml bottle 100 ML IV SCH ×9 (01:45→22:41)
[2019-03-21] MEDS: mineral oil/petrolatum ophthal oint EACHEYE SCH ×4 (02:30→19:54)
[2019-03-21] MEDS: methylPREDNISolone sod succ 125mg/2ml vial IV SCH ×4 (02:36→19:54)
[2019-03-21] MEDS: insulin regular, human U-100 3ml vial - multi-dose SQ SCH ×4 (02:41→20:43)
[2019-03-21] MEDS: ipratropium/albuterol 3ml nebule NEB SCH ×6 (03:32→22:37)
[2019-03-21] MEDS: FENTANYL-0.9 % NACL/PF 100 ML IV PRN ×6 (03:36→22:41)
[2019-03-21 04:06] LABS: ABG BASE EXCESS 5.6 mmol/L (-2.0-3.0); ABG HCO3 30.7 mmol/L (22.0-26.0); ABG OXYGEN SATURATION 96.9 % (95-98); ABG PCO2 (T) 48.5 mmHg (35.0-45.0); ABG PH (T) 7.423 (7.350-7.450); ABG PO2 (T) 93.9 mmHg (83-108); ALLEN'S TEST POSITIVE; FCOHb 0.2 % (0.5-1.5); FMetHb 0.1 % (0.3-1.12); FO2Hb 96.6 % (94-100); PATIENT TEMPERATURE 37.7; PEEP 15 cm H2O; RESPIRATORY RATE 22 b/min; TIDAL VOLUME 400 mL; TOTAL HEMOGLOBIN 11.5 G/dl (12.0-16.0)
[2019-03-21] MEDS: midazolam 100mg in NS 100ml 100 ML IV PRN ×4 (04:47→20:16)
[2019-03-21] MEDS: DOBUTamine-DoBUTrex 500mg/D5W 250 ML IV SCH ×2 (05:08→17:17)
--- NOTE | 2019-03-21 05:30 | NUR ---
PT placed in supine position for approx 30 mins. Tolerated fairly with O2 sat maintaining in the mid 80's. Will continue to monitor.
--- NOTE | 2019-03-21 06:50 | NUR ---
Patient in room CICU 2006. I have received report from AMANDA Perez and had the opportunity to ask questions and assume patient care.
--- NOTE | 2019-03-21 06:50 | NUR ---
Problems reprioritized. Patient report given, questions answered & plan of care reviewed with Nathaly PATEL.
[2019-03-21] MEDS: pantoprazole 40 MG vial IV SCH (07:24)
[2019-03-21] MEDS: lisinopril 5mg tablet OGT SCH (07:25)
[2019-03-21] MEDS: carvedilol 6.25mg tablet OGT SCH ×2 (07:25→19:55)
[2019-03-21] MEDS: amLODIPine 5mg tablet OGT SCH (07:25)
[2019-03-21] MEDS: docusate sodium 100mg/10ml UD cup OGT SCH ×2 (07:25→19:54)
[2019-03-21] MEDS: heparin, porcine 5000 units/ml vial SQ SCH ×2 (07:26→19:55)
[2019-03-21] MEDS: lactobacillus rhamnosus 10,000 MMU CELLS/CAPSULE OGT SCH ×2 (07:26→19:54)
[2019-03-21] MEDS: methylnaltrexone br 12mg/0.6ml inj***SubQ only SQ SCH (07:26)
[2019-03-21 07:48] LABS: ALBUMIN 2.1 G/DL (3.4-5.0); ANION GAP 6 (8-16); BLOOD UREA NITROGEN 89 MG/DL (7-18); CALCIUM 7.8 MG/DL (8.5-10.1); CHLORIDE 102 MMOL/L (99-107); CREATININE 1.37 MG/DL (0.40-0.90); GLUCOSE 128 MG/DL (70-104); MAGNESIUM 2.1 MG/DL (1.5-2.4); PHOSPHORUS 5.3 MG/DL (2.3-4.5); POTASSIUM 4.4 MMOL/L (3.5-5.1); SODIUM 144 MMOL/L (135-145); TOTAL CARBON DIOXIDE 36.2 MMOL/L (24-32); eGFR 41 ML/MIN
[2019-03-21] MEDS: K and/or MAG REPLACEMENT MC SCH ×2 (08:00→19:55)
[2019-03-21] MEDS: furosemide inj 100 ML IV SCH (09:25)
[2019-03-21 13:37] LABS: ALBUMIN 2.2 G/DL (3.4-5.0); ANION GAP 5 (8-16); BLOOD UREA NITROGEN 88 MG/DL (7-18); BUN/CREATININE RATIO 65.7 (6.6-38.0); CALCIUM 8.2 MG/DL (8.5-10.1); CHLORIDE 104 MMOL/L (99-107); CREATININE 1.34 MG/DL (0.40-0.90); GLUCOSE 118 MG/DL (70-104); MAGNESIUM 2.2 MG/DL (1.5-2.4); PHOSPHORUS 4.7 MG/DL (2.3-4.5); POTASSIUM 4.3 MMOL/L (3.5-5.1); SODIUM 144 MMOL/L (135-145); TOTAL CARBON DIOXIDE 35.1 MMOL/L (24-32); eGFR 42 ML/MIN
[2019-03-21 13:57] LABS: HIV ANTIBODY 1&2 RAPID NON-REACTIVE (Neg)
[2019-03-21 18:25] LABS: ALBUMIN 2.2 G/DL (3.4-5.0); ANION GAP 5 (8-16); BLOOD UREA NITROGEN 92 MG/DL (7-18); BUN/CREATININE RATIO 67.2 (6.6-38.0); CHLORIDE 104 MMOL/L (99-107); CREATININE 1.37 MG/DL (0.40-0.90); GLUCOSE 104 MG/DL (70-104); MAGNESIUM 2.2 MG/DL (1.5-2.4); PHOSPHORUS 4.6 MG/DL (2.3-4.5); POTASSIUM 4.4 MMOL/L (3.5-5.1); SODIUM 146 MMOL/L (135-145); eGFR 41 ML/MIN
--- NOTE | 2019-03-21 18:32 | NUR ---
Patient in room CICU 2007. I have received report from Nathaly PATEL, and had the opportunity to ask questions and assume patient care.
[2019-03-21] MEDS: insulin glargine (Lantus) pen - multi-dose SQ SCH (20:44)
[2019-03-22] VITALS (25 sets, daily range): BP systolic 112–186; BP diastolic 48–87
[2019-03-22 00:58] LABS: BASOPHILS % (AUTO) 0.1 % (0-1); EOSINOPHILS % (AUTO) 0 % (0-6); HEMATOCRIT 35.7 % (35.0-45.0); HEMOGLOBIN 10.9 g/dl (12.0-16.0); LYMPHOCYTES # (AUTO) 0.4 X10'3 (1.1-4.8); LYMPHOCYTES % (AUTO) 1.7 % (21-51); MEAN CORPUSCULAR HEMOGLOBIN 21.3 PG (27.0-31.0); MEAN CORPUSCULAR HGB CONC 30.6 g/dL (33.0-36.5); MEAN CORPUSCULAR VOLUME 69.7 FL (78-98); MEAN PLATELET VOLUME 8.6 FL (7.4-10.4); MONOCYTES # (AUTO) 1.1 X10'3 (0-0.9); MONOCYTES % (AUTO) 4.8 % (2-12); NEUTROPHILS # (AUTO) 21.1 X10'3 (1.8-7.7); NEUTROPHILS % (AUTO) 93.4 % (42-75); PLATELET COUNT 366 X10'3 (140-440); RED BLOOD COUNT 5.12 X10'6 (4.20-5.60); RED CELL DISTRIBUTION WIDTH 20.5 % (11.5-14.5); WHITE BLOOD COUNT 22.6 X10'3 (4.5-11.0)
[2019-03-22 01:06] LABS: ALANINE AMINOTRANSFERASE 31 U/L (12-78); ALBUMIN 2.2 G/DL (3.4-5.0); ALBUMIN/GLOBULIN RATIO 0.6 (1.1-1.5); ALKALINE PHOSPHATASE 55 IU/L (46-116); ANION GAP 2 (8-16); ASPARTATE AMINO TRANSFERASE 21 U/L (10-37); BILIRUBIN,TOTAL 0.2 MG/DL (0.1-1.0); BLOOD UREA NITROGEN 91 MG/DL (7-18); BUN/CREATININE RATIO 64.5 (6.6-38.0); CALCIUM 8.1 MG/DL (8.5-10.1); CHLORIDE 105 MMOL/L (99-107); CREATININE 1.41 MG/DL (0.40-0.90); GLUCOSE 113 MG/DL (70-104); POTASSIUM 4.3 MMOL/L (3.5-5.1); SODIUM 147 MMOL/L (135-145); TOTAL CARBON DIOXIDE 39.7 MMOL/L (24-32); TOTAL PROTEIN 6.1 G/DL (6.4-8.2); eGFR 39 ML/MIN
[2019-03-22] MEDS: propofol 1000mg/100ml bottle 100 ML IV SCH ×8 (01:20→22:17)
[2019-03-22] MEDS: midazolam 100mg in NS 100ml 100 ML IV PRN ×5 (01:32→22:13)
[2019-03-22] MEDS: FENTANYL-0.9 % NACL/PF 100 ML IV PRN ×7 (02:06→22:13)
[2019-03-22] MEDS: mineral oil/petrolatum ophthal oint EACHEYE SCH ×4 (02:21→20:38)
[2019-03-22] MEDS: methylPREDNISolone sod succ 125mg/2ml vial IV SCH ×4 (02:22→20:39)
[2019-03-22] MEDS: ipratropium/albuterol 3ml nebule NEB SCH ×6 (02:35→22:31)
[2019-03-22 02:42] LABS: MAGNESIUM 2.3 MG/DL (1.5-2.4); PHOSPHORUS 4.9 MG/DL (2.3-4.5)
[2019-03-22] MEDS: insulin regular, human U-100 3ml vial - multi-dose SQ SCH ×4 (02:56→20:51)
[2019-03-22 02:59] LABS: ANISOCYTOSIS 3+; HYPOCHROMASIA 1+; MICROCYTOSIS 2+; PLATELET ESTIMATE NORMAL; TARGET CELLS 1+
[2019-03-22 03:21] LABS: ABG BASE EXCESS 8.6 mmol/L (-2.0-3.0); ABG OXYGEN SATURATION 93.4 % (95-98); ABG PCO2 (T) 59.4 mmHg (35.0-45.0); ABG PH (T) 7.392 (7.350-7.450); ABG PO2 (T) 74.5 mmHg (83-108); ALLEN'S TEST POSITIVE; FCOHb 0.2 % (0.5-1.5); FMetHb 0.3 % (0.3-1.12); FO2Hb 92.9 % (94-100); PATIENT TEMPERATURE 37.9; PEEP 15 cm H2O; RESPIRATORY RATE 22 b/min; TIDAL VOLUME 400 mL; TOTAL HEMOGLOBIN 11.9 G/dl (12.0-16.0)
--- NOTE | 2019-03-22 04:30 | NUR ---
PT placed in supine position for approx 45 mins. Personal hygiene performed and sheet changed. PT tolerated well with O2 sat falling to 88%. PT returned to prone position and rotation started. Will continue to monitor.
[2019-03-22] MEDS: DOBUTamine-DoBUTrex 500mg/D5W 250 ML IV SCH ×2 (07:06→20:33)
--- NOTE | 2019-03-22 07:08 | NUR ---
Problems reprioritized. Patient report given, questions answered & plan of care reviewed with Darwin PATEL.
[2019-03-22 07:46] LABS: ALBUMIN 2.2 G/DL (3.4-5.0); ANION GAP 6 (8-16); BLOOD UREA NITROGEN 93 MG/DL (7-18); BUN/CREATININE RATIO 70.5 (6.6-38.0); CALCIUM 8.3 MG/DL (8.5-10.1); CHLORIDE 104 MMOL/L (99-107); CREATININE 1.32 MG/DL (0.40-0.90); GLUCOSE 86 MG/DL (70-104); MAGNESIUM 2.3 MG/DL (1.5-2.4); PHOSPHORUS 5.5 MG/DL (2.3-4.5); POTASSIUM 4.5 MMOL/L (3.5-5.1); SODIUM 148 MMOL/L (135-145); TOTAL CARBON DIOXIDE 37.9 MMOL/L (24-32); eGFR 42 ML/MIN
[2019-03-22] MEDS: docusate sodium 100mg/10ml UD cup OGT SCH ×2 (07:57→20:40)
[2019-03-22] MEDS: pantoprazole 40 MG vial IV SCH (07:57)
[2019-03-22] MEDS: heparin, porcine 5000 units/ml vial SQ SCH ×2 (07:58→20:40)
[2019-03-22] MEDS: lisinopril 5mg tablet OGT SCH (07:58)
[2019-03-22] MEDS: amLODIPine 5mg tablet OGT SCH (07:58)
[2019-03-22] MEDS: lactobacillus rhamnosus 10,000 MMU CELLS/CAPSULE OGT SCH ×2 (07:58→20:40)
[2019-03-22] MEDS: carvedilol 6.25mg tablet OGT SCH ×2 (07:58→20:40)
[2019-03-22] MEDS: K and/or MAG REPLACEMENT MC SCH ×2 (08:00→20:00)
[2019-03-22 12:49] LABS: ALBUMIN 1.7 G/DL (3.4-5.0); ANION GAP 5 (8-16); BLOOD UREA NITROGEN 82 MG/DL (7-18); BUN/CREATININE RATIO 75.9 (6.6-38.0); CALCIUM 6.9 MG/DL (8.5-10.1); CHLORIDE 111 MMOL/L (99-107); CREATININE 1.08 MG/DL (0.40-0.90); GLUCOSE 121 MG/DL (70-104); MAGNESIUM 1.9 MG/DL (1.5-2.4); PHOSPHORUS 4.2 MG/DL (2.3-4.5); POTASSIUM 3.6 MMOL/L (3.5-5.1); SODIUM 147 MMOL/L (135-145); eGFR 53 ML/MIN
--- NOTE | 2019-03-22 13:39 | NUR ---
Reassessment: Pt remains intubated and tolerating TF at goal rate with GRV WNL. Patient's wt is +5.7 kg since last nutrition assessment despite receiving Furosemide. Pt still with no BM since 03/11. Pt receiving routine Relistor and Colace with PRN Lactulose still not given. Will continue to follow closely. Recommendations: 1. Continuous Vital High Protein starting at 20ml/hr to advance as tolerated by 20ml q 8 hours to goal of 75ml/hr providing 1800 kcal, 158 g protein and 1512 ml free water and total volume of 1800 ml. 2. additional water flush 300 ml q 6 hours per MD 3. Prealbumin q Sunday and 4. Daily weights 5. Routine bowel care; opioid antagonist per MD 6. Monitor need for DM education once stable if pt with new DM dx; current A1c is 6.9 with no hx DM in PMH 7. Wt per rx Addendum: 03/22/19 at [address] Amended: Links added.
[2019-03-22] MEDS: furosemide inj 100 ML IV SCH ×2 (14:48→22:14)
--- NOTE | 2019-03-22 15:30 | NUR ---
Spoke with Cesilia CA about small drop in Potassium from 4.5 to 3.6 and improvement in renal function. Concerns about whether we should replace K or hold off. Per Aggie CA, will hold off on replacing at this time and continue renal panel per the Lasix gtt protocol q6h and assess need to replace.
[2019-03-22 17:56] LABS: ALBUMIN 2.2 G/DL (3.4-5.0); ANION GAP 3 (8-16); BLOOD UREA NITROGEN 93 MG/DL (7-18); BUN/CREATININE RATIO 69.4 (6.6-38.0); CALCIUM 8.3 MG/DL (8.5-10.1); CHLORIDE 105 MMOL/L (99-107); CREATININE 1.34 MG/DL (0.40-0.90); GLUCOSE 99 MG/DL (70-104); MAGNESIUM 2.3 MG/DL (1.5-2.4); PHOSPHORUS 5.3 MG/DL (2.3-4.5); POTASSIUM 4.5 MMOL/L (3.5-5.1); SODIUM 145 MMOL/L (135-145); TOTAL CARBON DIOXIDE 36.6 MMOL/L (24-32); TRIGLYCERIDES 175 MG/DL (20-135); eGFR 42 ML/MIN
--- NOTE | 2019-03-22 18:15 | NUR ---
report received from shobha olivas -VSS, patient is rotating prone, no distress
--- NOTE | 2019-03-22 18:28 | NUR ---
Problems reprioritized. Patient report given, questions answered & plan of care reviewed with Fuentes PATEL.
[2019-03-22] MEDS: insulin glargine (Lantus) pen - multi-dose SQ SCH (20:50)
[2019-03-23] VITALS (27 sets, daily range): BP systolic 99–172; BP diastolic 38–94
--- NOTE | 2019-03-23 00:10 | NUR ---
4 hr sum: lasix gtt 10 mg/hr. Large u/o - emptied austin at 2100 and 0000. patient averaged 700 ml/hr light yellow clear urine. the first 3 hours and averaged 850 ml/hr over last 3 hours. Patients BP is stable, SR at 71 bpm, K+ 4.4, Mg 2.4, patient is showing no adverse s/sx to warrant a decrease gtt as the goal is to diurese this patient. Monitoring for these s/sx carefully. Started the shift with patient rotating prone position and tolerating without complications/VSS. At 2100, I supined and "parked" patient (with another RN to monitor lines) to do austin and facial care. removed the facial securement device with another RN monitoring the ETT. - ice pack, Lacrilube, mouth care, nasal care, and added a duoderm/comfeel to top of tongue where ETT lays, also a piece between nasal septum and top lip are to protect from the ETT securement device. I was barely able to put lacrilube in both eyes due to extensive and massive facial swelling. I was not able to assess the pupils due to this massive edema. large amount of yellow creamy mucous suctioned from right nare, and only a small amt of creamy yellow from left nare. Patient has small blotches on both cheeks (shingles-like) - these do not appear to be due to the bed. will continue to monitor. Patient tolerated this position (supine) ~ 20 min sat'ing about 91 % on 80 % FiO2. I decided to put patient on rotation to see if she tolerated it (~21:20). Patient only tolerated 30 minutes and sats were dipping with ranges to 85 - 88 %. Patient was turned prone once again at 21:50. sats returned to 91-93 % within minutes. Bed settings are: 11 degrees RT, Left 1 min, @ 62 degrees, 0 min at center, Right 1 min @ 62 degrees. Heavily sedated. compliant with vent. ETT remains at 25 cm to the upper lip, no issues.I have not had to suction the patient. Tolerating TF at goal with 150 ml residuals. I have held the 300 ml Flush to OGT q6h. to clarify in AM since our goal is to diurese. Currently VSS, no complications, no s/sx pain or discomfort or distress
[2019-03-23 00:25] LABS: BASOPHILS % (AUTO) 0.2 % (0-1); EOSINOPHILS % (AUTO) 0.1 % (0-6); HEMATOCRIT 36.4 % (35.0-45.0); HEMOGLOBIN 10.9 g/dl (12.0-16.0); LYMPHOCYTES # (AUTO) 0.5 X10'3 (1.1-4.8); LYMPHOCYTES % (AUTO) 2.5 % (21-51); MEAN CORPUSCULAR VOLUME 70.2 FL (78-98); MONOCYTES # (AUTO) 2.1 X10'3 (0-0.9); MONOCYTES % (AUTO) 9.3 % (2-12); NEUTROPHILS # (AUTO) 19.7 X10'3 (1.8-7.7); NEUTROPHILS % (AUTO) 87.9 % (42-75); PLATELET COUNT 358 X10'3 (140-440); RED BLOOD COUNT 5.18 X10'6 (4.20-5.60); WHITE BLOOD COUNT 22.4 X10'3 (4.5-11.0)
[2019-03-23 00:26] LABS: ALANINE AMINOTRANSFERASE 27 U/L (12-78); ALBUMIN 2.2 G/DL (3.4-5.0); ALBUMIN/GLOBULIN RATIO 0.6 (1.1-1.5); ALKALINE PHOSPHATASE 55 IU/L (46-116); ANION GAP 4 (8-16); ASPARTATE AMINO TRANSFERASE 21 U/L (10-37); BILIRUBIN,TOTAL 0.4 MG/DL (0.1-1.0); BLOOD UREA NITROGEN 92 MG/DL (7-18); BUN/CREATININE RATIO 66.2 (6.6-38.0); CALCIUM 8.1 MG/DL (8.5-10.1); CHLORIDE 106 MMOL/L (99-107); CREATININE 1.39 MG/DL (0.40-0.90); GLUCOSE 120 MG/DL (70-104); MAGNESIUM 2.4 MG/DL (1.5-2.4); PHOSPHORUS 4.9 MG/DL (2.3-4.5); POTASSIUM 4.4 MMOL/L (3.5-5.1); SODIUM 147 MMOL/L (135-145); TOTAL CARBON DIOXIDE 37.1 MMOL/L (24-32); TOTAL PROTEIN 5.9 G/DL (6.4-8.2); TRIGLYCERIDES 149 MG/DL (20-135); eGFR 40 ML/MIN
[2019-03-23] MEDS: propofol 1000mg/100ml bottle 100 ML IV SCH ×8 (01:14→21:57)
[2019-03-23 01:52] LABS: ANISOCYTOSIS 2+; HYPOCHROMASIA 1+; MICROCYTOSIS 1+; PLATELET ESTIMATE NORMAL; STOMATOCYTES FEW; TARGET CELLS FEW; TOTAL CELLS COUNTED 100
[2019-03-23] MEDS: methylPREDNISolone sod succ 125mg/2ml vial IV SCH ×4 (02:36→20:21)
[2019-03-23] MEDS: mineral oil/petrolatum ophthal oint EACHEYE SCH ×4 (02:36→20:20)
[2019-03-23] MEDS: ipratropium/albuterol 3ml nebule NEB SCH ×6 (02:38→22:51)
[2019-03-23] MEDS: insulin regular, human U-100 3ml vial - multi-dose SQ SCH ×3 (02:50→20:29)
[2019-03-23 03:10] LABS: ABG BASE EXCESS 8.8 mmol/L (-2.0-3.0); ABG OXYGEN SATURATION 97.1 % (95-98); ABG PCO2 (T) 51.6 mmHg (35.0-45.0); ABG PO2 (T) 102.3 mmHg (83-108); FCOHb 0.2 % (0.5-1.5); FMetHb 0.1 % (0.3-1.12); FO2Hb 96.8 % (94-100); PATIENT TEMPERATURE 38.1; RESPIRATORY RATE 22 b/min; TIDAL VOLUME 400 mL
[2019-03-23] MEDS: midazolam 100mg in NS 100ml 100 ML IV PRN ×5 (03:33→21:14)
--- NOTE | 2019-03-23 04:00 | NUR ---
supined patient for bed change and bath. patient began droppng sats to 80 % again close to the 30 minute dar being supine as before . turned prone and recovered quickly (with in minutes sat was 91 %)
--- NOTE | 2019-03-23 06:30 | NUR ---
Patient in room CICU 2006. I have received report from Fuentes PATEL and had the opportunity to ask questions and assume patient care. Patient on rotoprone, being proned affectively, in reverse Trendelenburg of -11 degrees as ordered. Patient on ventilator 80% fio2, peep of 5 Tital volume 400 rate 22 setting A/C VC. Lasix, fentanyl, versed, propofol, dobutamine infusing as ordered to Right upper arm pic and R AC respectively. Barrera draining to gravity, Tube feed vital HP running at 75 ml/hr which is goal, Q6 300 free water flushes. vital signs stable no signs or symptoms of distress at this time. Will continue to monitor Addendum: 03/23/19 at 1315 by Aditi Castellanos RN tube feed not running ordered to be running at 75ml/hr
--- NOTE | 2019-03-23 07:39 | NUR ---
Rt Mclean consulted with me and is dropping fio2 to 75%, will continue to monitor
--- NOTE | 2019-03-23 08:00 | NUR ---
Upon morning assessment OG tube placement not auscultated, tried to pull back gastric content unable to. Consulted with remarketing rep stated to pull and place a new one. New OG placed, auscultated and gastric content drainage observed. Will restart tube feedings at ordered rate
[2019-03-23] MEDS: FENTANYL-0.9 % NACL/PF 100 ML IV PRN ×4 (08:37→20:07)
[2019-03-23] MEDS: methylnaltrexone br 12mg/0.6ml inj***SubQ only SQ SCH (08:38)
[2019-03-23] MEDS: heparin, porcine 5000 units/ml vial SQ SCH ×2 (08:38→20:21)
[2019-03-23] MEDS: pantoprazole 40 MG vial IV SCH (08:38)
[2019-03-23] MEDS: docusate sodium 100mg/10ml UD cup OGT SCH ×2 (08:38→20:21)
[2019-03-23] MEDS: amLODIPine 5mg tablet OGT SCH (08:39)
[2019-03-23] MEDS: lisinopril 5mg tablet OGT SCH (08:39)
[2019-03-23] MEDS: lactobacillus rhamnosus 10,000 MMU CELLS/CAPSULE OGT SCH ×2 (08:39→20:21)
[2019-03-23] MEDS: carvedilol 6.25mg tablet OGT SCH ×2 (08:39→20:31)
[2019-03-23] MEDS: K and/or MAG REPLACEMENT MC SCH ×2 (08:40→20:00)
[2019-03-23] MEDS: DOBUTamine-DoBUTrex 500mg/D5W 250 ML IV SCH ×2 (08:41→22:28)
[2019-03-23 08:53] LABS: ALBUMIN 2.2 G/DL (3.4-5.0); ANION GAP 6 (8-16); BLOOD UREA NITROGEN 95 MG/DL (7-18); BUN/CREATININE RATIO 76.6 (6.6-38.0); CALCIUM 8.1 MG/DL (8.5-10.1); CHLORIDE 104 MMOL/L (99-107); CREATININE 1.24 MG/DL (0.40-0.90); GLUCOSE 76 MG/DL (70-104); MAGNESIUM 2.3 MG/DL (1.5-2.4); PHOSPHORUS 4.6 MG/DL (2.3-4.5); POTASSIUM 4.4 MMOL/L (3.5-5.1); SODIUM 149 MMOL/L (135-145); TOTAL CARBON DIOXIDE 39.5 MMOL/L (24-32); eGFR 46 ML/MIN
--- NOTE | 2019-03-23 10:20 | NUR ---
Talked to DR. Dow in regards to the patients 300 ml H2O flush Q6 and the fact that she is on a lasix gtt, he state to hold them for now
--- NOTE | 2019-03-23 11:00 | NUR ---
Dr. Dow by while patient was in supine position, asked if her facial edema has improved, stated this was my first day with the patient and it was reported to me that it has not. He stated not to prone her any longer and to put her on the rotorest setting. Patients current fio2 is 75% with a peep of 15. Will continue to monitor
--- NOTE | 2019-03-23 12:00 | NUR ---
Called Rt Mclean to consult on patient who is now on a rotorest setting, informed her of my observation of her oxygen saturation not improving she was at 97% this morning while in the prone position with an fio2 of 75%. Stated to her that the patient has been hanging out in the 82-84% since starting the rotorest setting, She suggested bumping her fio2 up to 100% and see how she recovers
[2019-03-23 12:51] LABS: ALBUMIN 2.2 G/DL (3.4-5.0); ANION GAP 2 (8-16); BLOOD UREA NITROGEN 90 MG/DL (7-18); BUN/CREATININE RATIO 69.8 (6.6-38.0); CALCIUM 8.3 MG/DL (8.5-10.1); CHLORIDE 104 MMOL/L (99-107); CREATININE 1.29 MG/DL (0.40-0.90); GLUCOSE 143 MG/DL (70-104); MAGNESIUM 2.3 MG/DL (1.5-2.4); PHOSPHORUS 4.2 MG/DL (2.3-4.5); POTASSIUM 4.3 MMOL/L (3.5-5.1); SODIUM 144 MMOL/L (135-145); TOTAL CARBON DIOXIDE 37.8 MMOL/L (24-32); eGFR 44 ML/MIN
--- NOTE | 2019-03-23 15:40 | NUR ---
Called Deepthi CA, regarding patients temperature of 38.8, she stated to fox culture patient, blood, sputum, and urine. Informed her of the WBC's being 22.4 on AM labs, also informed her that she has not been on any antibiotics for a few days. Deepthi stated to start her on a cooling blanket as she has an allergy to acetaminophen. Also gave an order for ASA per rectal if cooling blanket does not work
[2019-03-23 17:06] LABS: ABG BASE EXCESS 6.8 mmol/L (-2.0-3.0); ABG HCO3 33.1 mmol/L (22.0-26.0); ABG PCO2 (T) 60.2 mmHg (35.0-45.0); ABG PH (T) 7.367 (7.350-7.450); ABG PO2 (T) 71.3 mmHg (83-108); ALLEN'S TEST POSITIVE; FCOHb 0.5 % (0.5-1.5); FMetHb 0.1 % (0.3-1.12); FO2Hb 90.5 % (94-100); PATIENT TEMPERATURE 38.8; PEEP 15 cm H2O; RESPIRATORY RATE 22 b/min; TIDAL VOLUME 400 mL; TOTAL HEMOGLOBIN 11.9 G/dl (12.0-16.0)
[2019-03-23] MEDS ORDERED: aspirin 300mg supp.rect RC ONE (17:15)
--- NOTE | 2019-03-23 18:15 | NUR ---
report received from Aditi PATEL, patient with VSS and rotating supine.
[2019-03-23 19:50] LABS: ALBUMIN 2.2 G/DL (3.4-5.0); ANION GAP 3 (8-16); BLOOD UREA NITROGEN 101 MG/DL (7-18); BUN/CREATININE RATIO 69.2 (6.6-38.0); CHLORIDE 106 MMOL/L (99-107); CREATININE 1.46 MG/DL (0.40-0.90); GLUCOSE 129 MG/DL (70-104); MAGNESIUM 2.4 MG/DL (1.5-2.4); PHOSPHORUS 5.3 MG/DL (2.3-4.5); POTASSIUM 4.7 MMOL/L (3.5-5.1); SODIUM 148 MMOL/L (135-145); TOTAL CARBON DIOXIDE 38.7 MMOL/L (24-32); eGFR 38 ML/MIN
[2019-03-23] MEDS: insulin glargine (Lantus) pen - multi-dose SQ SCH (20:28)
[2019-03-24] VITALS (28 sets, daily range): BP systolic 83–170; BP diastolic 35–96
[2019-03-24] MEDS: propofol 1000mg/100ml bottle 100 ML IV SCH ×10 (00:05→22:39)
[2019-03-24] MEDS: ipratropium/albuterol 3ml nebule NEB SCH ×6 (02:35→22:32)
[2019-03-24] MEDS: methylPREDNISolone sod succ 125mg/2ml vial IV SCH ×4 (02:36→20:33)
[2019-03-24] MEDS: mineral oil/petrolatum ophthal oint EACHEYE SCH ×4 (02:36→20:34)
[2019-03-24 03:08] LABS: BASOPHILS % (AUTO) 0 % (0-1); EOSINOPHILS % (AUTO) 0.1 % (0-6); HEMATOCRIT 36.1 % (35.0-45.0); HEMOGLOBIN 10.8 g/dl (12.0-16.0); LYMPHOCYTES # (AUTO) 0.6 X10'3 (1.1-4.8); LYMPHOCYTES % (AUTO) 2.2 % (21-51); MEAN CORPUSCULAR HGB CONC 30.1 g/dL (33.0-36.5); MEAN CORPUSCULAR VOLUME 69.8 FL (78-98); MEAN PLATELET VOLUME 9.2 FL (7.4-10.4); MONOCYTES # (AUTO) 1.5 X10'3 (0-0.9); MONOCYTES % (AUTO) 5.4 % (2-12); NEUTROPHILS % (AUTO) 92.3 % (42-75); PLATELET COUNT 337 X10'3 (140-440); RED BLOOD COUNT 5.17 X10'6 (4.20-5.60); RED CELL DISTRIBUTION WIDTH 20.2 % (11.5-14.5)
[2019-03-24] MEDS: insulin regular, human U-100 3ml vial - multi-dose SQ SCH ×4 (03:09→20:55)
[2019-03-24 03:16] LABS: ALANINE AMINOTRANSFERASE 32 U/L (12-78); ALBUMIN 2.2 G/DL (3.4-5.0); ALBUMIN/GLOBULIN RATIO 0.6 (1.1-1.5); ALKALINE PHOSPHATASE 52 IU/L (46-116); ANION GAP 4 (8-16); ASPARTATE AMINO TRANSFERASE 24 U/L (10-37); BILIRUBIN,TOTAL 0.4 MG/DL (0.1-1.0); BLOOD UREA NITROGEN 107 MG/DL (7-18); BUN/CREATININE RATIO 71.8 (6.6-38.0); CALCIUM 7.9 MG/DL (8.5-10.1); CHLORIDE 107 MMOL/L (99-107); CREATININE 1.49 MG/DL (0.40-0.90); GLUCOSE 143 MG/DL (70-104); POTASSIUM 4.5 MMOL/L (3.5-5.1); SODIUM 149 MMOL/L (135-145); TOTAL CARBON DIOXIDE 37.9 MMOL/L (24-32); eGFR 37 ML/MIN
[2019-03-24 03:19] LABS: WHITE BLOOD COUNT 28.1 X10'3 (4.5-11.0)
[2019-03-24 03:29] LABS: PREALBUMIN 44.9 MG/DL (19-36)
[2019-03-24 04:01] LABS: ANISOCYTOSIS 3+; MICROCYTOSIS 2+; PLATELET ESTIMATE NORMAL; TOTAL CELLS COUNTED 100
[2019-03-24 04:02] LABS: ELLIPTOCYTES FEW; POLYCHROMASIA FEW; STOMATOCYTES FEW
[2019-03-24 04:15] LABS: ABG BASE EXCESS 7.2 mmol/L (-2.0-3.0); ABG HCO3 33.5 mmol/L (22.0-26.0); ABG OXYGEN SATURATION 93.6 % (95-98); ABG PCO2 (T) 59.5 mmHg (35.0-45.0); ABG PH (T) 7.375 (7.350-7.450); ABG PO2 (T) 78.2 mmHg (83-108); ALLEN'S TEST POSITIVE; FCOHb 0.5 % (0.5-1.5); FMetHb 0.3 % (0.3-1.12); FO2Hb 92.9 % (94-100); PATIENT TEMPERATURE 38.6; PEEP 15 cm H2O; RESPIRATORY RATE 22 b/min; TIDAL VOLUME 400 mL; TOTAL HEMOGLOBIN 11.7 G/dl (12.0-16.0)
[2019-03-24] MEDS: furosemide inj 100 ML IV SCH ×2 (04:53→14:17)
[2019-03-24] MEDS: midazolam 100mg in NS 100ml 100 ML IV PRN ×3 (05:26→15:39)
--- NOTE | 2019-03-24 07:44 | NUR ---
Patient in room CICU 2006. I have received report from Fuentes PATEL and had the opportunity to ask questions and assume patient care. Patient on rotoprone bed in rotorest setting with 62 degree rotation to left and right with 40 second hold per side, no supine holding position. Patient intubated on 100% fio2 Peep of 15 sating 88-91%, fentanyl, versed, propofol, lasix and dobutamine infusing at ordered rate to upper Right arm pic and AC respectively, austin to gravity with expected urine output per lasix gtt protocol. Patient receiving tube feed of vial HP at goal rate of 75ml/hr, free water flushes currently being held. Patient is febrile with cooling blanket in place. Vital signs stable no signs or symptoms of distress will continue to monitor
[2019-03-24] MEDS: FENTANYL-0.9 % NACL/PF 100 ML IV PRN ×2 (07:58→11:23)
[2019-03-24] MEDS: K and/or MAG REPLACEMENT MC SCH ×2 (08:00→20:00)
[2019-03-24] MEDS: pantoprazole 40 MG vial IV SCH (08:40)
[2019-03-24] MEDS: heparin, porcine 5000 units/ml vial SQ SCH ×2 (08:42→20:35)
[2019-03-24] MEDS: carvedilol 6.25mg tablet OGT SCH ×2 (08:42→20:35)
[2019-03-24] MEDS: lactobacillus rhamnosus 10,000 MMU CELLS/CAPSULE OGT SCH ×2 (08:42→20:35)
[2019-03-24] MEDS: amLODIPine 5mg tablet OGT SCH (08:43)
[2019-03-24] MEDS: lisinopril 5mg tablet OGT SCH (08:43)
[2019-03-24] MEDS: docusate sodium 100mg/10ml UD cup OGT SCH ×2 (08:43→20:34)
[2019-03-24] MEDS: piperacillin/tazo 4.5gm/100ml 100 ML IV SCH ×2 (08:44→20:33)
[2019-03-24 10:37] LABS: ALBUMIN 2.2 G/DL (3.4-5.0); ANION GAP 4 (8-16); BLOOD UREA NITROGEN 113 MG/DL (7-18); BUN/CREATININE RATIO 74.3 (6.6-38.0); CALCIUM 8.1 MG/DL (8.5-10.1); CHLORIDE 104 MMOL/L (99-107); CREATININE 1.52 MG/DL (0.40-0.90); GLUCOSE 163 MG/DL (70-104); PHOSPHORUS 5.1 MG/DL (2.3-4.5); POTASSIUM 4.3 MMOL/L (3.5-5.1); SODIUM 147 MMOL/L (135-145); TOTAL CARBON DIOXIDE 39.5 MMOL/L (24-32); eGFR 36 ML/MIN
[2019-03-24] MEDS: DOBUTamine-DoBUTrex 500mg/D5W 250 ML IV SCH (11:23)
--- NOTE | 2019-03-24 11:44 | NUR ---
Dr. Cason has ordered for her to have Q4 100ml free water flushes, he also ordered d5 at 50ml/hr, he and pharmacy are looking into an alternate sedation so she can be started on zyvox, we will be giving her lactulose and in the even she has large amounts of diarrhea she stated that we an place a rectal tube. Informed him of her tongue that has been bitten through and has the braces embedded in them
--- NOTE | 2019-03-24 11:48 | NUR ---
patient did not tolerate being supine for wound care skin check, sats dropped to 84% and has been slow to recover, currently at 86% she is on 100% fio2 with a peep of 15. They were unable to check the back side of her skin as we were unable to complete a full turn
--- NOTE | 2019-03-24 12:45 | NUR ---
follow up: no BM 14 days, per Bedside RN at rounds plans to administer lactulose and place rectal tube after BM. Sodium 147, water flushes of 300 q 6 were discontinued. Pt receiving lasix. Discussed recommendation with MD of water flush 100 q 4 for sodium and bowel regularity. Addendum: 03/24/19 at [address] Amended: Links added.
[2019-03-24] MEDS: morphine/NS 100mg/100ml bag 100 ML IV SCH (13:44)
[2019-03-24] MEDS: dextrose 5%-water 1,000 ML IV SCH (13:45)
[2019-03-24] MEDS: linezolid 600mg/300ml PREMIX 300 ML IV SCH ×2 (15:51→20:34)
[2019-03-24 16:19] LABS: ALBUMIN 2.1 G/DL (3.4-5.0); ANION GAP 3 (8-16); BLOOD UREA NITROGEN 121 MG/DL (7-18); BUN/CREATININE RATIO 71.6 (6.6-38.0); CALCIUM 7.8 MG/DL (8.5-10.1); CHLORIDE 103 MMOL/L (99-107); CREATININE 1.69 MG/DL (0.40-0.90); GLUCOSE 201 MG/DL (70-104); PHOSPHORUS 5.6 MG/DL (2.3-4.5); POTASSIUM 4.2 MMOL/L (3.5-5.1); SODIUM 145 MMOL/L (135-145); TOTAL CARBON DIOXIDE 38.8 MMOL/L (24-32); eGFR 32 ML/MIN
[2019-03-24] MEDS: lactulose 20gm/30ml cup OGT PRN (16:59)
--- NOTE | 2019-03-24 18:26 | NUR ---
Problems reprioritized. Patient report given, questions answered & plan of care reviewed with Fuentes Mendoza .
[2019-03-24] MEDS: insulin glargine (Lantus) pen - multi-dose SQ SCH (20:48)
[2019-03-24 23:30] LABS: ALBUMIN 2.1 G/DL (3.4-5.0); ANION GAP 4 (8-16); BLOOD UREA NITROGEN 128 MG/DL (7-18); BUN/CREATININE RATIO 72.3 (6.6-38.0); CALCIUM 7.8 MG/DL (8.5-10.1); CHLORIDE 102 MMOL/L (99-107); CREATININE 1.77 MG/DL (0.40-0.90); GLUCOSE 176 MG/DL (70-104); PHOSPHORUS 6.3 MG/DL (2.3-4.5); POTASSIUM 4.1 MMOL/L (3.5-5.1); SODIUM 144 MMOL/L (135-145); TOTAL CARBON DIOXIDE 37.8 MMOL/L (24-32); eGFR 30 ML/MIN
[2019-03-25] VITALS (29 sets, daily range): BP systolic 71–163; BP diastolic 31–82
--- NOTE | 2019-03-25 01:25 | NUR ---
since around 2144 to current, patients SBP low 80's while rotating right side. Center SBP's 90's SBP on Left is low 100's. Cuff is on left upper arm. I can not try cuff pressure on the right because there is a PICC line on ENEIDA and a much needed PIV on the Right lower arm. Request for a midline in the AM. Carlos Gaspar MAILROOM MANAGER aware. no orders.
[2019-03-25] MEDS: propofol 1000mg/100ml bottle 100 ML IV SCH ×10 (01:38→23:10)
[2019-03-25] MEDS: DOBUTamine-DoBUTrex 500mg/D5W 250 ML IV SCH ×2 (01:39→18:04)
[2019-03-25] MEDS: midazolam 100mg in NS 100ml 100 ML IV PRN ×4 (01:41→22:21)
[2019-03-25] MEDS: methylPREDNISolone sod succ 125mg/2ml vial IV SCH ×4 (02:00→19:45)
[2019-03-25] MEDS: furosemide inj 100 ML IV SCH ×3 (02:20→21:16)
[2019-03-25] MEDS: mineral oil/petrolatum ophthal oint EACHEYE SCH ×4 (02:22→19:45)
[2019-03-25] MEDS: ipratropium/albuterol 3ml nebule NEB SCH ×6 (02:33→22:38)
[2019-03-25] MEDS: insulin regular, human U-100 3ml vial - multi-dose SQ SCH ×4 (03:06→20:51)
[2019-03-25 03:23] LABS: BASOPHILS # (AUTO) 0.1 X10'3 (0-0.2); BASOPHILS % (AUTO) 0.3 % (0-1); EOSINOPHILS % (AUTO) 0 % (0-6); HEMATOCRIT 35.3 % (35.0-45.0); HEMOGLOBIN 10.4 g/dl (12.0-16.0); LYMPHOCYTES # (AUTO) 0.7 X10'3 (1.1-4.8); LYMPHOCYTES % (AUTO) 2.7 % (21-51); MEAN CORPUSCULAR HEMOGLOBIN 20.9 PG (27.0-31.0); MEAN CORPUSCULAR HGB CONC 29.6 g/dL (33.0-36.5); MEAN CORPUSCULAR VOLUME 70.5 FL (78-98); MEAN PLATELET VOLUME 9.5 FL (7.4-10.4); MONOCYTES # (AUTO) 1.4 X10'3 (0-0.9); MONOCYTES % (AUTO) 5.3 % (2-12); NEUTROPHILS # (AUTO) 24.5 X10'3 (1.8-7.7); NEUTROPHILS % (AUTO) 91.7 % (42-75); PLATELET COUNT 307 X10'3 (140-440); RED BLOOD COUNT 5.01 X10'6 (4.20-5.60); RED CELL DISTRIBUTION WIDTH 20.4 % (11.5-14.5)
[2019-03-25 03:31] LABS: ALANINE AMINOTRANSFERASE 28 U/L (12-78); ALBUMIN/GLOBULIN RATIO 0.6 (1.1-1.5); ALKALINE PHOSPHATASE 45 IU/L (46-116); ANION GAP 5 (8-16); ASPARTATE AMINO TRANSFERASE 22 U/L (10-37); BILIRUBIN,TOTAL 0.3 MG/DL (0.1-1.0); BLOOD UREA NITROGEN 131 MG/DL (7-18); BUN/CREATININE RATIO 72.4 (6.6-38.0); CALCIUM 7.9 MG/DL (8.5-10.1); CHLORIDE 101 MMOL/L (99-107); CREATININE 1.81 MG/DL (0.40-0.90); GLUCOSE 153 MG/DL (70-104); PHOSPHORUS 6.4 MG/DL (2.3-4.5); POTASSIUM 4.2 MMOL/L (3.5-5.1); SODIUM 144 MMOL/L (135-145); TOTAL CARBON DIOXIDE 37.8 MMOL/L (24-32); TOTAL PROTEIN 5.6 G/DL (6.4-8.2); eGFR 29 ML/MIN
[2019-03-25 03:47] LABS: WHITE BLOOD COUNT 26.7 X10'3 (4.5-11.0)
[2019-03-25 04:40] LABS: ABG BASE EXCESS 6.4 mmol/L (-2.0-3.0); ABG HCO3 34.2 mmol/L (22.0-26.0); ABG OXYGEN SATURATION 89.1 % (95-98); ABG PCO2 (T) 70.5 mmHg (35.0-45.0); ABG PH (T) 7.309 (7.350-7.450); ABG PO2 (T) 64.6 mmHg (83-108); ALLEN'S TEST POSITIVE; FCOHb 0.2 % (0.5-1.5); FMetHb 0.1 % (0.3-1.12); FO2Hb 88.8 % (94-100); PATIENT TEMPERATURE 38.1; PEEP 15 cm H2O; RESPIRATORY RATE 22 b/min; TIDAL VOLUME 400 mL; TOTAL HEMOGLOBIN 11.5 G/dl (12.0-16.0)
[2019-03-25 04:49] LABS: TOTAL CELLS COUNTED 100
[2019-03-25 04:50] LABS: ANISOCYTOSIS 3+; MICROCYTOSIS 1+; PLATELET ESTIMATE NORMAL
--- NOTE | 2019-03-25 07:23 | NUR ---
Patient in room CICU 2006. I have received report from Fuentes PATEL and had the opportunity to ask questions and assume patient care. Patient on rotoprone bed using rotorest setting, 62 degree rotation left and right with a 40 second pause each side. Patient being ventilated with 100% fio2 peep of 15 with A/C vc setting. Barrera draining to gravity, with required hourly amounts per lasix gtt protocol, versed, propofol, morphine, lasix , dobutamine and D5 infusing to compatible ports to either the R PICC or R forearm IV. Vital signs stable, no signs or symptoms of distress will continue to monitor
[2019-03-25] MEDS: carvedilol 6.25mg tablet OGT SCH ×3 (08:00→19:46)
[2019-03-25] MEDS: lisinopril 5mg tablet OGT SCH ×2 (08:00→11:31)
[2019-03-25] MEDS: K and/or MAG REPLACEMENT MC SCH ×2 (08:00→19:47)
[2019-03-25] MEDS: amLODIPine 5mg tablet OGT SCH ×2 (08:00→11:32)
[2019-03-25] MEDS: heparin, porcine 5000 units/ml vial SQ SCH ×2 (08:27→19:47)
[2019-03-25] MEDS: methylnaltrexone br 12mg/0.6ml inj***SubQ only SQ SCH (08:27)
[2019-03-25] MEDS: lactobacillus rhamnosus 10,000 MMU CELLS/CAPSULE OGT SCH ×2 (08:27→19:46)
[2019-03-25] MEDS: docusate sodium 100mg/10ml UD cup OGT SCH ×2 (08:27→19:46)
[2019-03-25] MEDS: linezolid 600mg/300ml PREMIX 300 ML IV SCH ×2 (08:28→19:46)
[2019-03-25] MEDS: piperacillin/tazo 4.5gm/100ml 100 ML IV SCH ×2 (08:28→19:46)
[2019-03-25] MEDS: dextrose 5%-water 1,000 ML IV SCH (08:32)
[2019-03-25] MEDS: pantoprazole 40 MG vial IV SCH (08:32)
[2019-03-25 09:07] LABS: MAGNESIUM 2.5 MG/DL (1.5-2.4)
--- NOTE | 2019-03-25 09:30 | NUR ---
stopped patient in the supine position to get a true CVP reading as the patient was having some low blood pressure readings at which point the patient started to d-sat into the 70's, secured the patient and restarted the bed, no improvement. Called RT and DR. Cason, they are bedside, made some ventilator changes increased peep to 18 and rate to 30 as patients po2 is still decreasing while her co2 is increasing. Dr Cason also ordered 25% 100ml albumin for now and Q8 to help with the blood pressure and to sheet metal helper in diuresing patient. No other new orders at this time, will continue to monitor
[2019-03-25] MEDS ORDERED: albumin (human) 25% 100 ML IV solution IV ONE (09:45)
[2019-03-25] MEDS: morphine/NS 100mg/100ml bag 100 ML IV SCH ×2 (09:55→17:19)
--- NOTE | 2019-03-25 11:39 | NUR ---
follow up: no BM 15 days, per Bedside RN at rounds plans to administer lactulose and place rectal tube, one dose already given and plans to give another dose. Sodium 144, per Structural Metal Worker will discontinue D5% and continue additional water flush 100 ml q 4 hours. Pt was also given albumin. Pt remains intubated and tolerating TF at goal rate with GRV WNL on roto-rest bed. Pt receiving routine Relistor and Colace. Will continue to follow closely. Recommendations: 1. Continuous Vital High Protein starting at 20ml/hr to advance as tolerated by 20ml q 8 hours to goal of 75ml/hr providing 1800 kcal, 158 g protein and 1512 ml free water and total volume of 1800 ml. 2. additional water flush 100 ml q 4 hours 3. Prealbumin q Sunday and 4. Daily weights 5. Routine bowel care; may benefit from opioid antagonist Addendum: 03/25/19 at [address] Amended: Links added.
[2019-03-25 13:22] LABS: ALBUMIN 2.4 G/DL (3.4-5.0); ANION GAP 6 (8-16); BLOOD UREA NITROGEN 138 MG/DL (7-18); CHLORIDE 99 MMOL/L (99-107); CREATININE 1.84 MG/DL (0.40-0.90); GLUCOSE 172 MG/DL (70-104); PHOSPHORUS 6.5 MG/DL (2.3-4.5); POTASSIUM 4.2 MMOL/L (3.5-5.1); SODIUM 142 MMOL/L (135-145); TOTAL CARBON DIOXIDE 37.5 MMOL/L (24-32); eGFR 29 ML/MIN
[2019-03-25] MEDS ORDERED: propofol 1000mg/100ml bottle 100 ML IV SCH (15:29)
[2019-03-25] MEDS ORDERED: albumin (human) 25% 100ml IV 100 ML IV ONE (16:00)
[2019-03-25 16:20] LABS: ALBUMIN 3.4 G/DL (3.4-5.0); ANION GAP 10 (8-16); BLOOD UREA NITROGEN 139 MG/DL (7-18); BUN/CREATININE RATIO 78.5 (6.6-38.0); CALCIUM 7.8 MG/DL (8.5-10.1); CHLORIDE 98 MMOL/L (99-107); CREATININE 1.77 MG/DL (0.40-0.90); GLUCOSE 132 MG/DL (70-104); PHOSPHORUS 6.1 MG/DL (2.3-4.5); SODIUM 143 MMOL/L (135-145); TOTAL CARBON DIOXIDE 35.5 MMOL/L (24-32); eGFR 30 ML/MIN
[2019-03-25 17:00] LABS: ABG BASE EXCESS 4.4 mmol/L (-2.0-3.0); ABG HCO3 30.7 mmol/L (22.0-26.0); ABG OXYGEN SATURATION 95.1 % (95-98); ABG PCO2 (T) 55.4 mmHg (35.0-45.0); ABG PH (T) 7.364 (7.350-7.450); ABG PO2 (T) 80.6 mmHg (83-108); FCOHb 0.1 % (0.5-1.5); FMetHb 0.1 % (0.3-1.12); FO2Hb 94.9 % (94-100); PATIENT TEMPERATURE 37.6; PEEP 18 cm H2O; RESPIRATORY RATE 27 b/min; TIDAL VOLUME 400 mL; TOTAL HEMOGLOBIN 11.3 G/dl (12.0-16.0)
[2019-03-25] MEDS: lactulose 20gm/30ml cup OGT PRN (17:40)
--- NOTE | 2019-03-25 18:13 | NUR ---
Problems reprioritized. Patient report given, questions answered & plan of care reviewed with Fuentes PATEL.
[2019-03-25] MEDS: insulin glargine (Lantus) pen - multi-dose SQ SCH (20:52)
[2019-03-25 22:43] LABS: ALBUMIN 2.1 G/DL (3.4-5.0); ANION GAP 9 (8-16); BLOOD UREA NITROGEN 122 MG/DL (7-18); BUN/CREATININE RATIO 86.5 (6.6-38.0); CALCIUM 6.2 MG/DL (8.5-10.1); CHLORIDE 108 MMOL/L (99-107); CREATININE 1.41 MG/DL (0.40-0.90); GLUCOSE 115 MG/DL (70-104); PHOSPHORUS 4.4 MG/DL (2.3-4.5); SODIUM 147 MMOL/L (135-145); TOTAL CARBON DIOXIDE 29.7 MMOL/L (24-32); TRIGLYCERIDES 180 MG/DL (20-135); eGFR 39 ML/MIN
[2019-03-25] MEDS ORDERED: potassium Cl 20 mEq/100mL bag IV ONE (23:00)
--- NOTE | 2019-03-25 23:00 | NUR ---
call placed to Carlos Dominguez NP to report critical K of 3.0. [facility] has an option to start k replacement if K<3.5 however that order was written 03/11/19 when BUN/Creat = 13/.91. Currently BUN/Creat 122/1.41. CATRACHITO Gonzalez gives a ONE TIME order for 40 meq KCL IVMB - I am not starting the replacement protocol. Labs are due again near 0400 to check effect of replacement. Patient is still getting q6 renal panel.
--- NOTE | 2019-03-25 23:30 | NUR ---
Another RN in to help me examine patients occipital area. Using a flash light and examining closely - nothing was noted. I placed a purple foam donut beneath patients head. Due to the edema in the patients back/neck, this foam not only protects the occipital portion of head because it sits up with a hole for occipital to rest on but also appears more comfortable as her neck seemed hyper flexed because of the back/neck edema. just a side note - i wanted to mention it was in fact passed along regarding the length of time the R A/C PIV has been in - Days RN tried to have a midline placed but patient was too unstable for picc nurse to place the midline. the PICC nurse is aware and will return tomorrow to try again.
[2019-03-26] VITALS (24 sets, daily range): BP systolic 77–164; BP diastolic 35–86
[2019-03-26] MEDS: morphine/NS 100mg/100ml bag 100 ML IV SCH ×3 (00:40→15:09)
--- NOTE | 2019-03-26 00:48 | NUR ---
MUST MONITOR THE OGT PLACEMENT CONSTANTLY IT CONTINUES TO SLIP OUT OF THE TAPE SECUREMENT BECAUSE OF THE ORAL SECRETIONS BREAKING DOWN THE TAPE WITHIN MINUTES OF REPLACING THE TAPE. TAPE WILL NOT STICK TO THE ETT, CAN NOT SECURE TO CHEEK ALSO DUE TO ORAL SECRETIONS /MOUTH MOISTURIZER DROOLING FROM THE PATIENTS MOUTH. aFTER CONFIRMING PLACEMENT ONCE AGAIN, I HAVE MADE A BLACK SHARPEE MARKER LOYD ON THE OGT THAT ALIGNS WITH A SIMILAR BLACK MARKER LOYD I PUT ON THE ETT SO AT LEAST A VISUAL IF THEY LINE UP - I KNOW IT IS IN THE SAME POSITION WHEN I CHECKED PLACEMENT. I CHECK IT VERY FREQUENTLY . Addendum: 03/26/19 at 0204 by Fuentes Palomino RN I FORGOT TO ADD TO MY NOTE HOW I SECURED THE OGT - BENZOIN + SKIN PREP GENEROUSLY APPLIED TO FORE HEAD AND STUCK TO FOREHEAD WITH A TEGADERM WELL A STERI STRIP BUTTERFLIED ON EITHER SIDE OF THE TEGADERM/OGT. SEEMS TO BE HOLDING. MONITORING CLOSELY
[2019-03-26] MEDS: propofol 1000mg/100ml bottle 100 ML IV SCH ×8 (02:10→22:34)
[2019-03-26] MEDS: mineral oil/petrolatum ophthal oint EACHEYE SCH ×4 (02:11→19:55)
[2019-03-26] MEDS: methylPREDNISolone sod succ 125mg/2ml vial IV SCH ×4 (02:12→19:54)
[2019-03-26] MEDS: insulin regular, human U-100 3ml vial - multi-dose SQ SCH ×4 (02:32→21:06)
[2019-03-26] MEDS: ipratropium/albuterol 3ml nebule NEB SCH ×6 (02:38→23:07)
[2019-03-26] MEDS: furosemide inj 100 ML IV SCH ×2 (03:16→09:34)
[2019-03-26 03:46] LABS: ABG BASE EXCESS 7.8 mmol/L (-2.0-3.0); ABG HCO3 32.3 mmol/L (22.0-26.0); ABG OXYGEN SATURATION 95.3 % (95-98); ABG PCO2 (T) 44.7 mmHg (35.0-45.0); ABG PH (T) 7.477 (7.350-7.450); ABG PO2 (T) 75.6 mmHg (83-108); ALLEN'S TEST POSITIVE; FCOHb 0.2 % (0.5-1.5); FMetHb 0.3 % (0.3-1.12); FO2Hb 94.8 % (94-100); PATIENT TEMPERATURE 37.2; PEEP 18 cm H2O; RESPIRATORY RATE 27 b/min; TIDAL VOLUME 400 mL; TOTAL HEMOGLOBIN 12.2 G/dl (12.0-16.0)
[2019-03-26 04:27] LABS: BASOPHILS # (AUTO) 0.1 X10'3 (0-0.2); BASOPHILS % (AUTO) 0.3 % (0-1); EOSINOPHILS % (AUTO) 0 % (0-6); HEMATOCRIT 36.4 % (35.0-45.0); HEMOGLOBIN 11.1 g/dl (12.0-16.0); LYMPHOCYTES % (AUTO) 4.7 % (21-51); MEAN CORPUSCULAR HEMOGLOBIN 20.9 PG (27.0-31.0); MEAN CORPUSCULAR HGB CONC 30.5 g/dL (33.0-36.5); MEAN CORPUSCULAR VOLUME 68.6 FL (78-98); MEAN PLATELET VOLUME 9.3 FL (7.4-10.4); MONOCYTES # (AUTO) 0.7 X10'3 (0-0.9); MONOCYTES % (AUTO) 3.3 % (2-12); NEUTROPHILS # (AUTO) 19.7 X10'3 (1.8-7.7); NEUTROPHILS % (AUTO) 91.7 % (42-75); PLATELET COUNT 311 X10'3 (140-440); RED BLOOD COUNT 5.31 X10'6 (4.20-5.60); RED CELL DISTRIBUTION WIDTH 20.5 % (11.5-14.5); WHITE BLOOD COUNT 21.5 X10'3 (4.5-11.0)
[2019-03-26 04:41] LABS: ALANINE AMINOTRANSFERASE 27 U/L (12-78); ALBUMIN 2.6 G/DL (3.4-5.0); ALBUMIN/GLOBULIN RATIO 0.8 (1.1-1.5); ALKALINE PHOSPHATASE 38 IU/L (46-116); ANION GAP 6 (8-16); ASPARTATE AMINO TRANSFERASE 20 U/L (10-37); BILIRUBIN,TOTAL 0.5 MG/DL (0.1-1.0); BLOOD UREA NITROGEN 139 MG/DL (7-18); BUN/CREATININE RATIO 80.3 (6.6-38.0); CALCIUM 7.9 MG/DL (8.5-10.1); CHLORIDE 100 MMOL/L (99-107); CREATININE 1.73 MG/DL (0.40-0.90); GLUCOSE 202 MG/DL (70-104); PHOSPHORUS 5.4 MG/DL (2.3-4.5); POTASSIUM 3.8 MMOL/L (3.5-5.1); SODIUM 142 MMOL/L (135-145); TOTAL CARBON DIOXIDE 36.2 MMOL/L (24-32); TRIGLYCERIDES 249 MG/DL (20-135); eGFR 31 ML/MIN
[2019-03-26] MEDS: DOBUTamine-DoBUTrex 500mg/D5W 250 ML IV SCH (06:10)
[2019-03-26 07:01] LABS: ANISOCYTOSIS 3+; MICROCYTOSIS 2+; PLATELET ESTIMATE NORMAL
[2019-03-26 07:03] LABS: HYPOCHROMASIA 1+; LARGE PLATELETS FEW
[2019-03-26] MEDS: piperacillin/tazo 4.5gm/100ml 100 ML IV SCH ×2 (07:24→19:55)
[2019-03-26] MEDS: linezolid 600mg/300ml PREMIX 300 ML IV SCH (07:25)
[2019-03-26] MEDS: lactobacillus rhamnosus 10,000 MMU CELLS/CAPSULE OGT SCH ×2 (07:26→19:55)
[2019-03-26] MEDS: docusate sodium 100mg/10ml UD cup OGT SCH ×2 (07:26→19:54)
[2019-03-26] MEDS: carvedilol 6.25mg tablet OGT SCH ×3 (07:26→22:11)
[2019-03-26] MEDS: pantoprazole 40 MG vial IV SCH (07:26)
[2019-03-26] MEDS: amLODIPine 5mg tablet OGT SCH (07:26)
[2019-03-26] MEDS: lisinopril 5mg tablet OGT SCH (07:26)
[2019-03-26] MEDS: heparin, porcine 5000 units/ml vial SQ SCH ×2 (07:27→19:55)
--- NOTE | 2019-03-26 07:42 | NUR ---
TUBE ADVANCED APPROXIMATELY 3CM, MARKINGS ON TUBE WORN OFF BY ALCOHOL WIPES. MARKED PLACEMENT WITH PERMANENT MARKER. Addendum: 03/26/19 at 0746 by Marty Vee RT Amended: Links added.
[2019-03-26] MEDS: K and/or MAG REPLACEMENT MC SCH ×2 (08:00→19:54)
[2019-03-26] MEDS: midazolam 100mg in NS 100ml 100 ML IV PRN ×4 (09:06→21:23)
[2019-03-26] MEDS: lactulose 20gm/30ml cup OGT PRN ×2 (10:01→15:57)
[2019-03-26 10:21] LABS: ALBUMIN 2.5 G/DL (3.4-5.0); ANION GAP 6 (8-16); BLOOD UREA NITROGEN 149 MG/DL (7-18); BUN/CREATININE RATIO 81.9 (6.6-38.0); CALCIUM 8.2 MG/DL (8.5-10.1); CHLORIDE 100 MMOL/L (99-107); CREATININE 1.82 MG/DL (0.40-0.90); GLUCOSE 161 MG/DL (70-104); PHOSPHORUS 6.5 MG/DL (2.3-4.5); SODIUM 143 MMOL/L (135-145); TOTAL CARBON DIOXIDE 36.8 MMOL/L (24-32); eGFR 29 ML/MIN
--- NOTE | 2019-03-26 11:32 | NUR ---
Reassessment: Pt continues to tolerate TF at goal with GRV WNL. Pt still with no BM for 15 days, pt received PRN lactulose last night and this morning and still with routine bowel care of colace and relistor. Pt with prealbumin of 44.9, high likely r/t ALFONZO and pre-renal today per wind turbine machinist at critical care rounds. Will continue to monitor. Recommendations: 1. Continuous Vital High Protein starting at 20ml/hr to advance as tolerated by 20ml q 8 hours to goal of 75ml/hr providing 1800 kcal, 158 g protein and 1512 ml free water and total volume of 1800 ml. 2. additional water flush 100 ml q 4 hours 3. Prealbumin q Sunday and 4. Daily weights 5. Routine bowel care; opioid antagonist per MD Addendum: 03/26/19 at 1132 by Wing Lemuel FLORES Amended: Links added. Addendum: 03/26/19 at [address] MARK Chen
[2019-03-26] MEDS ORDERED: albumin (human) 25% 100ml IV 100 ML IV ONE (12:00)
[2019-03-26] MEDS: albumin (human) 25% 100 ML IV solution IV SCH (15:48)
[2019-03-26 16:19] LABS: ALBUMIN 2.9 G/DL (3.4-5.0); ANION GAP 6 (8-16); CALCIUM 8.4 MG/DL (8.5-10.1); CHLORIDE 101 MMOL/L (99-107); CREATININE 1.99 MG/DL (0.40-0.90); GLUCOSE 95 MG/DL (70-104); PHOSPHORUS 7.2 MG/DL (2.3-4.5); SODIUM 144 MMOL/L (135-145); TOTAL CARBON DIOXIDE 36.6 MMOL/L (24-32); eGFR 26 ML/MIN
[2019-03-26 16:20] LABS: BLOOD UREA NITROGEN 159 MG/DL (7-18); BUN/CREATININE RATIO 79.9 (6.6-38.0)
--- NOTE | 2019-03-26 18:23 | NUR ---
Patient in room CICU 2007. I have received report from Nathaly PATEL, and had the opportunity to ask questions and assume patient care.
[2019-03-26] MEDS: insulin glargine (Lantus) pen - multi-dose SQ SCH (21:07)
--- NOTE | 2019-03-26 21:30 | NUR ---
CATRACHITO Gaspar contacted in regards to Proning PT and informed of PT O2 sat. Per report PT had not been in Prone position. Received approval to Prone PT. O2 sat went immediately from mid to high 80's to mid to high 90's. Will continue to monitor PT.
[2019-03-26 22:58] LABS: ANION GAP 7 (8-16); BLOOD UREA NITROGEN 121 MG/DL (7-18); BUN/CREATININE RATIO 61.4 (6.6-38.0); CALCIUM 8.2 MG/DL (8.5-10.1); CHLORIDE 101 MMOL/L (99-107); CREATININE 1.97 MG/DL (0.40-0.90); GLUCOSE 117 MG/DL (70-104); PHOSPHORUS 7.2 MG/DL (2.3-4.5); POTASSIUM 4.1 MMOL/L (3.5-5.1); SODIUM 144 MMOL/L (135-145); TOTAL CARBON DIOXIDE 35.6 MMOL/L (24-32); eGFR 27 ML/MIN
[2019-03-26 23:05] LABS: MAGNESIUM 2.6 MG/DL (1.5-2.4)
[2019-03-27] VITALS (24 sets, daily range): BP systolic 90–175; BP diastolic 33–75
[2019-03-27] MEDS: albumin (human) 25% 100 ML IV solution IV SCH ×3 (00:01→15:20)
[2019-03-27] MEDS: propofol 1000mg/100ml bottle 100 ML IV SCH ×6 (01:12→19:53)
[2019-03-27] MEDS: furosemide inj 100 ML IV SCH (01:12)
--- NOTE | 2019-03-27 01:15 | NUR ---
PT back in supine position after being Prone for 3hr 45min. Ice on PT face to help with swelling. PT tolerated Prone position well, O2 sat >95%. Will continue to monitor.
--- NOTE | 2019-03-27 02:30 | NUR ---
PT back in Prone Position after being supine for 1hr 15mins, O2 sat <90%. Once back in Prone position O2 sat immediately increase to mid 90's. Will continue to monitor.
[2019-03-27] MEDS: methylPREDNISolone sod succ 125mg/2ml vial IV SCH ×4 (02:32→16:00)
[2019-03-27] MEDS: mineral oil/petrolatum ophthal oint EACHEYE SCH ×4 (02:33→19:49)
[2019-03-27] MEDS: insulin regular, human U-100 3ml vial - multi-dose SQ SCH ×4 (02:49→21:39)
[2019-03-27 02:50] LABS: ABG BASE EXCESS 6.2 mmol/L (-2.0-3.0); ABG HCO3 32.9 mmol/L (22.0-26.0); ABG OXYGEN SATURATION 94.7 % (95-98); ABG PO2 (T) 80.2 mmHg (83-108); ALLEN'S TEST POSITIVE; FCOHb 0.3 % (0.5-1.5); FMetHb 0.2 % (0.3-1.12); FO2Hb 94.2 % (94-100); PATIENT TEMPERATURE 37.7; PEEP 18 cm H2O; RESPIRATORY RATE 25 b/min; TIDAL VOLUME 400 mL; TOTAL HEMOGLOBIN 11.2 G/dl (12.0-16.0)
[2019-03-27 04:32] LABS: BASOPHILS # (AUTO) 0.1 X10'3 (0-0.2); BASOPHILS % (AUTO) 0.2 % (0-1); EOSINOPHILS % (AUTO) 0 % (0-6); HEMATOCRIT 33.7 % (35.0-45.0); HEMOGLOBIN 10.3 g/dl (12.0-16.0); LYMPHOCYTES # (AUTO) 1.1 X10'3 (1.1-4.8); LYMPHOCYTES % (AUTO) 4.3 % (21-51); MEAN CORPUSCULAR HEMOGLOBIN 21.1 PG (27.0-31.0); MEAN CORPUSCULAR HGB CONC 30.4 g/dL (33.0-36.5); MEAN CORPUSCULAR VOLUME 69.5 FL (78-98); MEAN PLATELET VOLUME 9.4 FL (7.4-10.4); MONOCYTES # (AUTO) 1.3 X10'3 (0-0.9); MONOCYTES % (AUTO) 4.9 % (2-12); NEUTROPHILS # (AUTO) 23.3 X10'3 (1.8-7.7); NEUTROPHILS % (AUTO) 90.6 % (42-75); PLATELET COUNT 256 X10'3 (140-440); RED BLOOD COUNT 4.85 X10'6 (4.20-5.60); RED CELL DISTRIBUTION WIDTH 20.4 % (11.5-14.5)
[2019-03-27 04:35] LABS: WHITE BLOOD COUNT 25.8 X10'3 (4.5-11.0)
[2019-03-27 04:52] LABS: TOTAL CELLS COUNTED 100
[2019-03-27 04:54] LABS: ANISOCYTOSIS 3+; MICROCYTOSIS 2+; PLATELET ESTIMATE NORMAL
[2019-03-27 04:55] LABS: HYPOCHROMASIA 1+; LARGE PLATELETS MODERATE
[2019-03-27] MEDS: midazolam 100mg in NS 100ml 100 ML IV PRN ×4 (04:57→23:35)
[2019-03-27 04:59] LABS: BLOOD UREA NITROGEN 157 MG/DL (7-18); PREALBUMIN 54.6 MG/DL (19-36)
[2019-03-27 05:00] LABS: ANION GAP 7 (8-16); BUN/CREATININE RATIO 80.9 (6.6-38.0); CHLORIDE 101 MMOL/L (99-107); CREATININE 1.94 MG/DL (0.40-0.90); GLUCOSE 112 MG/DL (70-104); SODIUM 145 MMOL/L (135-145); TOTAL CARBON DIOXIDE 36.8 MMOL/L (24-32); eGFR 27 ML/MIN
[2019-03-27 05:01] LABS: ALANINE AMINOTRANSFERASE 28 U/L (12-78); ALBUMIN 3.2 G/DL (3.4-5.0); ALBUMIN/GLOBULIN RATIO 1.1 (1.1-1.5); ALKALINE PHOSPHATASE 34 IU/L (46-116); ASPARTATE AMINO TRANSFERASE 21 U/L (10-37); BILIRUBIN,TOTAL 0.5 MG/DL (0.1-1.0); CALCIUM 8.4 MG/DL (8.5-10.1); MAGNESIUM 2.6 MG/DL (1.5-2.4); TOTAL PROTEIN 6.1 G/DL (6.4-8.2)
[2019-03-27] MEDS: DOBUTamine-DoBUTrex 500mg/D5W 250 ML IV SCH ×2 (05:54→19:11)
--- NOTE | 2019-03-27 06:29 | NUR ---
Problems reprioritized. Patient report given, questions answered & plan of care reviewed with Nathaly PATEL.
--- NOTE | 2019-03-27 06:56 | NUR ---
Patient in room CICU 2006. I have received report from AMANDA Perez and had the opportunity to ask questions and assume patient care.
[2019-03-27] MEDS: ipratropium/albuterol 3ml nebule NEB SCH ×5 (06:57→22:59)
[2019-03-27] MEDS: K and/or MAG REPLACEMENT MC SCH ×2 (07:05→19:49)
[2019-03-27] MEDS: lactobacillus rhamnosus 10,000 MMU CELLS/CAPSULE OGT SCH ×2 (07:34→19:49)
[2019-03-27] MEDS: pantoprazole 40 MG vial IV SCH (07:34)
[2019-03-27] MEDS: docusate sodium 100mg/10ml UD cup OGT SCH ×2 (07:34→19:49)
[2019-03-27] MEDS: methylnaltrexone br 12mg/0.6ml inj***SubQ only SQ SCH (07:35)
[2019-03-27] MEDS: piperacillin/tazo 4.5gm/100ml 100 ML IV SCH (07:35)
[2019-03-27] MEDS: heparin, porcine 5000 units/ml vial SQ SCH ×2 (07:35→19:49)
[2019-03-27] MEDS: lisinopril 5mg tablet OGT SCH (08:00)
[2019-03-27] MEDS: amLODIPine 5mg tablet OGT SCH (08:00)
[2019-03-27] MEDS: carvedilol 6.25mg tablet OGT SCH ×2 (08:00→19:51)
[2019-03-27] MEDS: morphine/NS 100mg/100ml bag 100 ML IV SCH ×2 (08:17→22:57)
[2019-03-27 10:24] LABS: ALBUMIN 3.4 G/DL (3.4-5.0); ANION GAP 10 (8-16); CALCIUM 8.7 MG/DL (8.5-10.1); CHLORIDE 102 MMOL/L (99-107); CREATININE 1.97 MG/DL (0.40-0.90); GLUCOSE 137 MG/DL (70-104); PHOSPHORUS 7.1 MG/DL (2.3-4.5); SODIUM 145 MMOL/L (135-145); TOTAL CARBON DIOXIDE 33.4 MMOL/L (24-32); eGFR 27 ML/MIN
[2019-03-27 10:25] LABS: BLOOD UREA NITROGEN 168 MG/DL (7-18); BUN/CREATININE RATIO 85.3 (6.6-38.0)
[2019-03-27] MEDS: lactulose 20gm/30ml cup OGT PRN (15:33)
[2019-03-27 16:13] LABS: ALBUMIN 3.7 G/DL (3.4-5.0); ANION GAP 9 (8-16); CALCIUM 8.4 MG/DL (8.5-10.1); CHLORIDE 100 MMOL/L (99-107); CREATININE 1.98 MG/DL (0.40-0.90); GLUCOSE 84 MG/DL (70-104); PHOSPHORUS 6.3 MG/DL (2.3-4.5); POTASSIUM 3.9 MMOL/L (3.5-5.1); SODIUM 145 MMOL/L (135-145); TOTAL CARBON DIOXIDE 36.5 MMOL/L (24-32); eGFR 27 ML/MIN
[2019-03-27 16:14] LABS: BLOOD UREA NITROGEN 174 MG/DL (7-18); BUN/CREATININE RATIO 87.9 (6.6-38.0)
--- NOTE | 2019-03-27 18:22 | NUR ---
Problems reprioritized. Patient report given, questions answered & plan of care reviewed with AMANDA Perez.
--- NOTE | 2019-03-27 20:30 | NUR ---
PT supine for approx 30 mins. Ice placed on PT face in attempt to reduce facial swelling. PT tolerated supine position fairly with O2 sat dropping to mid to low 80's. Once place back in prone position sats immediately in creased to mid 90's. Will continue to monitor
[2019-03-27] MEDS: insulin glargine (Lantus) pen - multi-dose SQ SCH (21:38)
[2019-03-27 23:04] LABS: ALBUMIN 3.1 G/DL (3.4-5.0); ANION GAP 8 (8-16); CALCIUM 8.5 MG/DL (8.5-10.1); CHLORIDE 102 MMOL/L (99-107); CREATININE 2.03 MG/DL (0.40-0.90); GLUCOSE 163 MG/DL (70-104); PHOSPHORUS 6.6 MG/DL (2.3-4.5); POTASSIUM 3.9 MMOL/L (3.5-5.1); SODIUM 144 MMOL/L (135-145); TOTAL CARBON DIOXIDE 33.9 MMOL/L (24-32); eGFR 26 ML/MIN
[2019-03-27 23:16] LABS: BUN/CREATININE RATIO 89.7 (6.6-38.0)
[2019-03-28] VITALS (24 sets, daily range): BP systolic 99–165; BP diastolic 46–82
[2019-03-28] MEDS: piperacillin/tazo 4.5gm/100ml 100 ML IV SCH ×2 (00:03→07:24)
[2019-03-28] MEDS: albumin (human) 25% 100 ML IV solution IV SCH ×3 (00:04→15:28)
[2019-03-28] MEDS: methylPREDNISolone sod succ 125mg/2ml vial IV SCH ×2 (00:04→08:04)
[2019-03-28] MEDS: propofol 1000mg/100ml bottle 100 ML IV SCH ×6 (00:05→20:35)
[2019-03-28] MEDS: mineral oil/petrolatum ophthal oint EACHEYE SCH ×4 (02:30→19:51)
[2019-03-28] MEDS: insulin regular, human U-100 3ml vial - multi-dose SQ SCH ×4 (02:32→20:37)
[2019-03-28] MEDS: ipratropium/albuterol 3ml nebule NEB SCH ×6 (02:36→22:42)
[2019-03-28 03:20] LABS: ABG BASE EXCESS 8.8 mmol/L (-2.0-3.0); ABG HCO3 34.3 mmol/L (22.0-26.0); ABG OXYGEN SATURATION 92.5 % (95-98); ABG PCO2 (T) 52.8 mmHg (35.0-45.0); ABG PH (T) 7.432 (7.350-7.450); ABG PO2 (T) 66.3 mmHg (83-108); FCOHb 0.3 % (0.5-1.5); FMetHb 0.1 % (0.3-1.12); FO2Hb 92.1 % (94-100); PATIENT TEMPERATURE 37.2; PEEP 15 cm H2O; RESPIRATORY RATE 25 b/min; TIDAL VOLUME 400 mL; TOTAL HEMOGLOBIN 10.9 G/dl (12.0-16.0)
--- NOTE | 2019-03-28 04:00 | NUR ---
While performing personal hygiene, PT has been in supine position for approx 45min. O2 sat dropped as low as 76%. PT placed in prone position and sats immediately came up to mid 90's.
[2019-03-28 05:07] LABS: BASOPHILS % (AUTO) 0.1 % (0-1); EOSINOPHILS # (AUTO) 0.1 X10'3 (0-0.9); EOSINOPHILS % (AUTO) 0.3 % (0-6); HEMATOCRIT 32.9 % (35.0-45.0); LYMPHOCYTES # (AUTO) 0.8 X10'3 (1.1-4.8); LYMPHOCYTES % (AUTO) 1.9 % (21-51); MEAN CORPUSCULAR HEMOGLOBIN 20.9 PG (27.0-31.0); MEAN CORPUSCULAR HGB CONC 30.2 g/dL (33.0-36.5); MEAN CORPUSCULAR VOLUME 69.3 FL (78-98); MEAN PLATELET VOLUME 10.1 FL (7.4-10.4); MONOCYTES % (AUTO) 2.3 % (2-12); NEUTROPHILS # (AUTO) 40.6 X10'3 (1.8-7.7); NEUTROPHILS % (AUTO) 95.4 % (42-75); PLATELET COUNT 210 X10'3 (140-440); RED BLOOD COUNT 4.75 X10'6 (4.20-5.60); RED CELL DISTRIBUTION WIDTH 20.3 % (11.5-14.5)
[2019-03-28 05:15] LABS: WHITE BLOOD COUNT 42.5 X10'3 (4.5-11.0)
[2019-03-28 05:25] LABS: ALANINE AMINOTRANSFERASE 27 U/L (12-78); ALBUMIN 3.4 G/DL (3.4-5.0); ALBUMIN/GLOBULIN RATIO 1.2 (1.1-1.5); ALKALINE PHOSPHATASE 32 IU/L (46-116); ANION GAP 8 (8-16); ASPARTATE AMINO TRANSFERASE 22 U/L (10-37); BILIRUBIN,TOTAL 0.6 MG/DL (0.1-1.0); CALCIUM 8.4 MG/DL (8.5-10.1); CHLORIDE 101 MMOL/L (99-107); CREATININE 1.88 MG/DL (0.40-0.90); GLUCOSE 111 MG/DL (70-104); PHOSPHORUS 5.9 MG/DL (2.3-4.5); POTASSIUM 3.8 MMOL/L (3.5-5.1); SODIUM 146 MMOL/L (135-145); TOTAL CARBON DIOXIDE 37.4 MMOL/L (24-32); TOTAL PROTEIN 6.2 G/DL (6.4-8.2); eGFR 28 ML/MIN
[2019-03-28 05:26] LABS: BLOOD UREA NITROGEN 180 MG/DL (7-18); BUN/CREATININE RATIO 95.7 (6.6-38.0)
[2019-03-28] MEDS: midazolam 100mg in NS 100ml 100 ML IV PRN ×3 (06:17→19:31)
[2019-03-28 06:24] LABS: ANISOCYTOSIS 3+; HYPOCHROMASIA 2+; MICROCYTOSIS 2+; PLATELET ESTIMATE NORMAL; TOTAL CELLS COUNTED 100
[2019-03-28 06:25] LABS: ELLIPTOCYTES 1+
[2019-03-28] MEDS: morphine/NS 100mg/100ml bag 100 ML IV SCH ×3 (06:29→20:40)
--- NOTE | 2019-03-28 06:35 | NUR ---
Problems reprioritized. Patient report given, questions answered & plan of care reviewed with Darwin PATEL.
[2019-03-28] MEDS: heparin, porcine 5000 units/ml vial SQ SCH ×2 (07:55→19:51)
[2019-03-28] MEDS: K and/or MAG REPLACEMENT MC SCH ×2 (08:00→19:51)
[2019-03-28] MEDS: carvedilol 6.25mg tablet OGT SCH ×2 (08:03→19:51)
[2019-03-28] MEDS: docusate sodium 100mg/10ml UD cup OGT SCH ×2 (08:03→19:50)
[2019-03-28] MEDS: amLODIPine 5mg tablet OGT SCH (08:03)
[2019-03-28] MEDS: lisinopril 5mg tablet OGT SCH (08:03)
[2019-03-28] MEDS: lactobacillus rhamnosus 10,000 MMU CELLS/CAPSULE OGT SCH (08:03)
[2019-03-28] MEDS: pantoprazole 40 MG vial IV SCH (08:04)
--- NOTE | 2019-03-28 08:30 | NUR ---
Per radiologist, AM x-ray indicating possible mucous plug; Dr. Cason notified. Will consider bronch vs pulmonary toilet.
[2019-03-28] MEDS: DOBUTamine-DoBUTrex 500mg/D5W 250 ML IV SCH ×2 (08:43→21:49)
[2019-03-28 10:36] LABS: CHLORIDE 100 MMOL/L (99-107); POTASSIUM 3.9 MMOL/L (3.5-5.1); SODIUM 145 MMOL/L (135-145)
[2019-03-28 10:43] LABS: ALBUMIN 3.5 G/DL (3.4-5.0); ANION GAP 8 (8-16); BLOOD UREA NITROGEN 172 MG/DL (7-18); BUN/CREATININE RATIO 93.5 (6.6-38.0); CALCIUM 8.6 MG/DL (8.5-10.1); CREATININE 1.84 MG/DL (0.40-0.90); GLUCOSE 230 MG/DL (70-104); PHOSPHORUS 6.1 MG/DL (2.3-4.5); TOTAL CARBON DIOXIDE 36.6 MMOL/L (24-32); eGFR 29 ML/MIN
--- NOTE | 2019-03-28 10:45 | NUR ---
Positive blood cultures x2 this AM, Dr. Valdes notified with change to Vanco abx from Zosyn. Also, orders to rule out Herpes on the tongue before treatment. MD aware of elevated WBC.
[2019-03-28 11:42] LABS: BLOOD UREA NITROGEN 182 MG/DL (7-18)
[2019-03-28 11:53] LABS: MAGNESIUM 2.7 MG/DL (1.5-2.4)
--- NOTE | 2019-03-28 12:30 | NUR ---
Bedside bronchoscopy performed by Dr. Cason with small amount of mucous out. Patient placed on 100%Fio2 at 12 PEEP for procedure; difficult to wean down on FiO2 since bronch. X-ray this afternoon.
--- NOTE | 2019-03-28 14:40 | NUR ---
Reassessment: Pt continues to tolerate TF at goal with gastric residuals WNL. With lactulose, colace and relistor patient did have 150 ml stool out rectal tube on 03/27 after no bowel movement for 15 days, likely impacted with more stools, recommend to continue bowel care. Pt with prealbumin of 54.6, high likely r/t ALFONZO and pre-renal today per cyberathlete at critical care rounds. She is s/p bronch. Will continue to follow. Recommendations: 1. Continuous Vital High Protein starting at 20ml/hr to advance as tolerated by 20ml q 8 hours to goal of 75ml/hr providing 1800 kcal, 158 g protein and 1512 ml free water and total volume of 1800 ml. 2. additional water flush 100 ml q 4 hours 3. Prealbumin q Sunday and 4. Daily weights 5. Routine bowel care; opioid antagonist per MD Addendum: 03/28/19 at [address] Amended: Links added.
[2019-03-28] MEDS: lactulose 20gm/30ml cup OGT PRN (15:27)
[2019-03-28 16:20] LABS: ALBUMIN 4.4 G/DL (3.4-5.0); ANION GAP 14 (8-16); CALCIUM 8.6 MG/DL (8.5-10.1); CHLORIDE 100 MMOL/L (99-107); GLUCOSE 169 MG/DL (70-104); PHOSPHORUS 6.6 MG/DL (2.3-4.5); POTASSIUM 3.9 MMOL/L (3.5-5.1); SODIUM 146 MMOL/L (135-145); TOTAL CARBON DIOXIDE 32.1 MMOL/L (24-32); eGFR 30 ML/MIN
[2019-03-28 16:21] LABS: BLOOD UREA NITROGEN 171 MG/DL (7-18)
--- NOTE | 2019-03-28 18:22 | NUR ---
Problems reprioritized. Patient report given, questions answered & plan of care reviewed with Ana PATEL.
--- NOTE | 2019-03-28 18:30 | NUR ---
Patient in room CICU 2006. I have received report from Darwin PATEL, and had the opportunity to ask questions and assume patient care.
--- NOTE | 2019-03-28 18:45 | NUR ---
PT is intubated and sedated.Tolerating vent settings, FiO2 is 70% with an O2 sat in low 90's. Will continue to monitor.
[2019-03-28] MEDS: methylPREDNISolone sod succ/PF 40mg inj. IV SCH (19:50)
[2019-03-28] MEDS: insulin glargine (Lantus) pen - multi-dose SQ SCH (20:36)
--- NOTE | 2019-03-28 23:00 | NUR ---
PT supine for approx 45 mins. Ice placed on PT face in attempt to reduce facial swelling. PT tolerated supine position fairly with O2 sat dropping to mid to low 80's. Once place back in prone position sats increased to low 90's. Will continue to monitor
[2019-03-28 23:53] LABS: ALBUMIN 3.4 G/DL (3.4-5.0); ANION GAP 8 (8-16); BLOOD UREA NITROGEN 184 MG/DL (7-18); BUN/CREATININE RATIO 105.1 (6.6-38.0); CALCIUM 8.5 MG/DL (8.5-10.1); CHLORIDE 104 MMOL/L (99-107); CREATININE 1.75 MG/DL (0.40-0.90); GLUCOSE 111 MG/DL (70-104); PHOSPHORUS 5.8 MG/DL (2.3-4.5); SODIUM 148 MMOL/L (135-145); TOTAL CARBON DIOXIDE 35.6 MMOL/L (24-32); eGFR 31 ML/MIN
[2019-03-29] VITALS (24 sets, daily range): BP systolic 95–161; BP diastolic 39–83
[2019-03-29] MEDS: albumin (human) 25% 100 ML IV solution IV SCH ×2 (00:12→07:40)
[2019-03-29] MEDS: propofol 1000mg/100ml bottle 100 ML IV SCH ×6 (00:52→21:47)
[2019-03-29] MEDS: midazolam 100mg in NS 100ml 100 ML IV PRN ×4 (02:35→20:43)
[2019-03-29] MEDS: mineral oil/petrolatum ophthal oint EACHEYE SCH ×4 (02:35→20:14)
[2019-03-29] MEDS: insulin regular, human U-100 3ml vial - multi-dose SQ SCH ×4 (02:43→20:29)
[2019-03-29] MEDS: ipratropium/albuterol 3ml nebule NEB SCH ×6 (02:47→23:42)
[2019-03-29 03:41] LABS: ABG BASE EXCESS 4.3 mmol/L (-2.0-3.0); ABG HCO3 29.8 mmol/L (22.0-26.0); ABG PCO2 (T) 50.7 mmHg (35.0-45.0); ABG PO2 (T) 49.3 mmHg (83-108); ALLEN'S TEST POSITIVE; FCOHb 0.1 % (0.5-1.5); FMetHb 0.1 % (0.3-1.12); FO2Hb 82.8 % (94-100); PATIENT TEMPERATURE 37.6; PEEP 12 cm H2O; RESPIRATORY RATE 25 b/min; TIDAL VOLUME 400 mL; TOTAL HEMOGLOBIN 10.9 G/dl (12.0-16.0)
--- NOTE | 2019-03-29 03:55 | NUR ---
Received Critical PO2 of 47.3. SOFTWARE MANAGER Miguelito notified and increased FiO2 from 70% to 85%.
[2019-03-29 04:45] LABS: BASOPHILS # (AUTO) 0.2 X10'3 (0-0.2); BASOPHILS % (AUTO) 0.7 % (0-1); EOSINOPHILS % (AUTO) 0 % (0-6); HEMATOCRIT 32.4 % (35.0-45.0); HEMOGLOBIN 9.7 g/dl (12.0-16.0); LYMPHOCYTES # (AUTO) 1.6 X10'3 (1.1-4.8); LYMPHOCYTES % (AUTO) 4.8 % (21-51); MEAN CORPUSCULAR HEMOGLOBIN 20.8 PG (27.0-31.0); MEAN CORPUSCULAR VOLUME 69.3 FL (78-98); MEAN PLATELET VOLUME 9.5 FL (7.4-10.4); MONOCYTES # (AUTO) 0.7 X10'3 (0-0.9); MONOCYTES % (AUTO) 2.2 % (2-12); NEUTROPHILS # (AUTO) 30.3 X10'3 (1.8-7.7); NEUTROPHILS % (AUTO) 92.3 % (42-75); PLATELET COUNT 181 X10'3 (140-440); RED BLOOD COUNT 4.69 X10'6 (4.20-5.60); RED CELL DISTRIBUTION WIDTH 20.5 % (11.5-14.5)
[2019-03-29 04:53] LABS: WHITE BLOOD COUNT 32.8 X10'3 (4.5-11.0)
[2019-03-29 05:05] LABS: ALANINE AMINOTRANSFERASE 29 U/L (12-78); ALBUMIN 3.6 G/DL (3.4-5.0); ALBUMIN/GLOBULIN RATIO 1.2 (1.1-1.5); ALKALINE PHOSPHATASE 33 IU/L (46-116); ANION GAP 8 (8-16); ASPARTATE AMINO TRANSFERASE 20 U/L (10-37); BILIRUBIN,TOTAL 0.7 MG/DL (0.1-1.0); CALCIUM 8.8 MG/DL (8.5-10.1); CHLORIDE 104 MMOL/L (99-107); CREATININE 1.75 MG/DL (0.40-0.90); GLUCOSE 127 MG/DL (70-104); MAGNESIUM 2.8 MG/DL (1.5-2.4); PHOSPHORUS 5.4 MG/DL (2.3-4.5); POTASSIUM 3.9 MMOL/L (3.5-5.1); SODIUM 148 MMOL/L (135-145); TOTAL CARBON DIOXIDE 36.2 MMOL/L (24-32); TOTAL PROTEIN 6.5 G/DL (6.4-8.2); eGFR 31 ML/MIN
[2019-03-29 05:07] LABS: BLOOD UREA NITROGEN 179 MG/DL (7-18); BUN/CREATININE RATIO 102.3 (6.6-38.0)
[2019-03-29] MEDS: FENTANYL 1000MCG/NS 100 ML BAG /PF IV PRN ×3 (06:09→20:25)
--- NOTE | 2019-03-29 06:51 | NUR ---
Problems reprioritized. Patient report given, questions answered & plan of care reviewed with Darwin PATEL.
[2019-03-29 07:29] LABS: TOTAL CELLS COUNTED 100
[2019-03-29 07:31] LABS: ANISOCYTOSIS 3+; HYPOCHROMASIA 2+; MICROCYTOSIS 2+; PLATELET ESTIMATE NORMAL
[2019-03-29 07:32] LABS: TARGET CELLS FEW
[2019-03-29] MEDS: pantoprazole 40 MG vial IV SCH (07:43)
[2019-03-29] MEDS: amLODIPine 5mg tablet OGT SCH (07:43)
[2019-03-29] MEDS: methylPREDNISolone sod succ/PF 40mg inj. IV SCH ×2 (07:43→20:14)
[2019-03-29] MEDS: docusate sodium 100mg/10ml UD cup OGT SCH ×2 (07:43→20:14)
[2019-03-29] MEDS: carvedilol 6.25mg tablet OGT SCH (07:44)
[2019-03-29] MEDS: methylnaltrexone br 12mg/0.6ml inj***SubQ only SQ SCH (07:44)
[2019-03-29] MEDS: lisinopril 5mg tablet OGT SCH (07:44)
[2019-03-29] MEDS: heparin, porcine 5000 units/ml vial SQ SCH ×2 (07:44→20:14)
[2019-03-29] MEDS: K and/or MAG REPLACEMENT MC SCH ×2 (08:00→20:00)
[2019-03-29 08:45] LABS: ABG BASE EXCESS 4.5 mmol/L (-2.0-3.0); ABG OXYGEN SATURATION 93.2 % (95-98); ABG PCO2 (T) 49.7 mmHg (35.0-45.0); ABG PO2 (T) 69.9 mmHg (83-108); ALLEN'S TEST POSITIVE; FCOHb 0.3 % (0.5-1.5); FMetHb 0.3 % (0.3-1.12); FO2Hb 92.6 % (94-100); PATIENT TEMPERATURE 37.1; PEEP 12 cm H2O; RESPIRATORY RATE 25 b/min; TIDAL VOLUME 400 mL; TOTAL HEMOGLOBIN 10.3 G/dl (12.0-16.0)
--- NOTE | 2019-03-29 09:00 | NUR ---
PICC nurse paged for possible line trade; Dr. Cason aware of positive Staph Aureus in blood; waiting on infection control to round for any changes to abx and/or lines.
[2019-03-29] MEDS: furosemide inj 100 ML IV SCH ×2 (09:25→14:53)
[2019-03-29 10:31] LABS: ALBUMIN 3.7 G/DL (3.4-5.0); ANION GAP 10 (8-16); BLOOD UREA NITROGEN 137 MG/DL (7-18); BUN/CREATININE RATIO 84.6 (6.6-38.0); CALCIUM 8.5 MG/DL (8.5-10.1); CHLORIDE 104 MMOL/L (99-107); CREATININE 1.62 MG/DL (0.40-0.90); GLUCOSE 110 MG/DL (70-104); PHOSPHORUS 5.1 MG/DL (2.3-4.5); POTASSIUM 3.8 MMOL/L (3.5-5.1); SODIUM 148 MMOL/L (135-145); TOTAL CARBON DIOXIDE 33.8 MMOL/L (24-32); eGFR 33 ML/MIN
[2019-03-29] MEDS: lactulose 20gm/30ml cup OGT PRN (15:42)
[2019-03-29 15:56] LABS: ALBUMIN 3.5 G/DL (3.4-5.0); ANION GAP 10 (8-16); CALCIUM 8.8 MG/DL (8.5-10.1); CHLORIDE 105 MMOL/L (99-107); CREATININE 1.72 MG/DL (0.40-0.90); GLUCOSE 166 MG/DL (70-104); MAGNESIUM 2.8 MG/DL (1.5-2.4); PHOSPHORUS 5.4 MG/DL (2.3-4.5); POTASSIUM 4.2 MMOL/L (3.5-5.1); SODIUM 148 MMOL/L (135-145); TOTAL CARBON DIOXIDE 33.3 MMOL/L (24-32); eGFR 31 ML/MIN
[2019-03-29 16:00] LABS: BLOOD UREA NITROGEN 181 MG/DL (7-18); BUN/CREATININE RATIO 105.2 (6.6-38.0)
[2019-03-29] MEDS: DOBUTamine-DoBUTrex 500mg/D5W 250 ML IV SCH (17:42)
--- NOTE | 2019-03-29 18:25 | NUR ---
Patient in room CICU 2006. I have received report from Darwin PATEL and had the opportunity to ask questions and assume patient care. Patient on vent at 80% FiO2, PEEP 12, spo2 at 90%. Patient on Rotoprone bed, proning at this time. Fentanyl drip, Midazolam drip and Propofol drip infusing for pain control and sedation, Dobutamine to keep MAP greater than 65, Ferosemide drip infusing per provider orders, will titrate all titratable medications per protocol, see IV spreadsheet for further information. See Interventions and EMR for further information. Will continue to monitor.
--- NOTE | 2019-03-29 18:27 | NUR ---
Problems reprioritized. Patient report given, questions answered & plan of care reviewed with Nilda PATEL.
[2019-03-29] MEDS: carVEDilol 12.5mg tablet OGT SCH (20:00)
[2019-03-29] MEDS: insulin glargine (Lantus) pen - multi-dose SQ SCH (20:28)
[2019-03-29] MEDS ORDERED: VANCOMYCIN LEVEL IV ONE (21:30)
--- NOTE | 2019-03-29 22:30 | NUR ---
Patient Supine from 2145 to 2215, spo2 78-85%, patient returned to Prone position when spo2 79-85%.
[2019-03-29 23:03] LABS: ALBUMIN 3.4 G/DL (3.4-5.0); ANION GAP 11 (8-16); CALCIUM 8.7 MG/DL (8.5-10.1); CHLORIDE 106 MMOL/L (99-107); CREATININE 1.73 MG/DL (0.40-0.90); GLUCOSE 137 MG/DL (70-104); MAGNESIUM 2.8 MG/DL (1.5-2.4); PHOSPHORUS 6.2 MG/DL (2.3-4.5); POTASSIUM 4.2 MMOL/L (3.5-5.1); SODIUM 150 MMOL/L (135-145); TOTAL CARBON DIOXIDE 32.7 MMOL/L (24-32); TRIGLYCERIDES 332 MG/DL (20-135); eGFR 31 ML/MIN
[2019-03-29 23:10] LABS: BLOOD UREA NITROGEN 193 MG/DL (7-18); BUN/CREATININE RATIO 111.6 (6.6-38.0)
[2019-03-29 23:12] LABS: VANCOMYCIN,TROUGH 43.1 UG/ML (6.0-14.0)
[2019-03-30] VITALS (24 sets, daily range): BP systolic 101–179; BP diastolic 42–91
[2019-03-30] MEDS: FENTANYL 1000MCG/NS 100 ML BAG /PF IV PRN ×4 (02:07→22:09)
[2019-03-30] MEDS: mineral oil/petrolatum ophthal oint EACHEYE SCH ×4 (02:10→19:53)
[2019-03-30] MEDS: propofol 1000mg/100ml bottle 100 ML IV SCH ×6 (02:24→22:06)
[2019-03-30] MEDS: insulin regular, human U-100 3ml vial - multi-dose SQ SCH ×3 (02:28→20:08)
--- NOTE | 2019-03-30 02:30 | NUR ---
Cooling blanket applied to patient.
[2019-03-30] MEDS: midazolam 100mg in NS 100ml 100 ML IV PRN ×4 (03:29→22:05)
[2019-03-30] MEDS: ipratropium/albuterol 3ml nebule NEB SCH ×6 (03:31→22:31)
[2019-03-30 03:55] LABS: ABG BASE EXCESS 4.6 mmol/L (-2.0-3.0); ABG HCO3 30.6 mmol/L (22.0-26.0); ABG OXYGEN SATURATION 94.5 % (95-98); ABG PCO2 (T) 54.8 mmHg (35.0-45.0); ABG PH (T) 7.369 (7.350-7.450); ABG PO2 (T) 78.8 mmHg (83-108); ALLEN'S TEST POSITIVE; FCOHb 0.3 % (0.5-1.5); FMetHb 0.3 % (0.3-1.12); FO2Hb 93.9 % (94-100); PATIENT TEMPERATURE 37.9; PEEP 12 cm H2O; RESPIRATORY RATE 25 b/min; TIDAL VOLUME 400 mL; TOTAL HEMOGLOBIN 10.2 G/dl (12.0-16.0)
[2019-03-30 04:12] LABS: BASOPHILS # (AUTO) 0.2 X10'3 (0-0.2); BASOPHILS % (AUTO) 0.7 % (0-1); EOSINOPHILS % (AUTO) 0.2 % (0-6); HEMOGLOBIN 9.4 g/dl (12.0-16.0); LYMPHOCYTES # (AUTO) 0.3 X10'3 (1.1-4.8); LYMPHOCYTES % (AUTO) 1.2 % (21-51); MEAN CORPUSCULAR HGB CONC 30.3 g/dL (33.0-36.5); MEAN CORPUSCULAR VOLUME 69.2 FL (78-98); MEAN PLATELET VOLUME 10.2 FL (7.4-10.4); MONOCYTES # (AUTO) 0.6 X10'3 (0-0.9); MONOCYTES % (AUTO) 2.7 % (2-12); NEUTROPHILS # (AUTO) 22.3 X10'3 (1.8-7.7); NEUTROPHILS % (AUTO) 95.2 % (42-75); PLATELET COUNT 182 X10'3 (140-440); RED BLOOD COUNT 4.48 X10'6 (4.20-5.60); RED CELL DISTRIBUTION WIDTH 20.6 % (11.5-14.5); WHITE BLOOD COUNT 23.5 X10'3 (4.5-11.0)
[2019-03-30 04:27] LABS: ALANINE AMINOTRANSFERASE 27 U/L (12-78); ALBUMIN 3.4 G/DL (3.4-5.0); ALBUMIN/GLOBULIN RATIO 1.2 (1.1-1.5); ALKALINE PHOSPHATASE 38 IU/L (46-116); ANION GAP 13 (8-16); ASPARTATE AMINO TRANSFERASE 17 U/L (10-37); BILIRUBIN,TOTAL 0.7 MG/DL (0.1-1.0); BLOOD UREA NITROGEN 197 MG/DL (7-18); BUN/CREATININE RATIO 113.9 (6.6-38.0); CALCIUM 8.8 MG/DL (8.5-10.1); CHLORIDE 106 MMOL/L (99-107); CREATININE 1.73 MG/DL (0.40-0.90); GLUCOSE 148 MG/DL (70-104); MAGNESIUM 2.8 MG/DL (1.5-2.4); POTASSIUM 4.7 MMOL/L (3.5-5.1); SODIUM 150 MMOL/L (135-145); TOTAL CARBON DIOXIDE 31.1 MMOL/L (24-32); TOTAL PROTEIN 6.3 G/DL (6.4-8.2); TRIGLYCERIDES 320 MG/DL (20-135); eGFR 31 ML/MIN
--- NOTE | 2019-03-30 05:43 | NUR ---
Supine at 0520, ice packs applied to face.
--- NOTE | 2019-03-30 06:40 | NUR ---
Student documentation: I have reviewed and agree with all interventions, assessments performed and documented by Felicita PATEL. Student Medication Administration: For this medication-pass time frame, all medication were reviewed, dispensed, administered and documented per hospital policy by Felicita PATEL.
--- NOTE | 2019-03-30 06:41 | NUR ---
Problems reprioritized. Patient report given, questions answered & plan of care reviewed with Aditi PATEL.
--- NOTE | 2019-03-30 06:51 | NUR ---
Patient in room CICU 2006. I have received report from Nilda Mendoza and had the opportunity to ask questions and assume patient care. Patient on rotorest bed back in prone position after being supine since 519. Patient on ventilator fio2 80% peep of 12 sating 86-90% respecitvely. Fentanyl, versed, propofol, dobutamine and lasix infusing to R IJ, at ordered rates. Barrera draining to gravity, tube feed infusing through OG at goal rate of 75ml/hr. vital signs stable no signs or symptoms of distress will continue to monitor
[2019-03-30 07:05] LABS: TOTAL CELLS COUNTED 100
[2019-03-30 07:06] LABS: ANISOCYTOSIS 3+; HYPOCHROMASIA 2+; MICROCYTOSIS 2+; PLATELET ESTIMATE NORMAL; POIKILOCYTOSIS FEW; POLYCHROMASIA FEW; TARGET CELLS FEW
[2019-03-30] MEDS: lisinopril 5mg tablet OGT SCH (08:00)
[2019-03-30] MEDS: amLODIPine 5mg tablet OGT SCH (08:00)
[2019-03-30] MEDS: carVEDilol 12.5mg tablet OGT SCH ×2 (08:00→19:45)
[2019-03-30] MEDS: methylPREDNISolone sod succ/PF 40mg inj. IV SCH ×2 (08:13→19:46)
[2019-03-30] MEDS: docusate sodium 100mg/10ml UD cup OGT SCH ×2 (08:13→19:45)
[2019-03-30] MEDS: heparin, porcine 5000 units/ml vial SQ SCH ×2 (08:14→19:45)
[2019-03-30] MEDS: pantoprazole 40 MG vial IV SCH (08:14)
[2019-03-30] MEDS: K and/or MAG REPLACEMENT MC SCH ×2 (08:15→20:00)
--- NOTE | 2019-03-30 08:30 | NUR ---
per Dr. Iverson's request changed patients peep to 16 from 12. No other new orders at this time
[2019-03-30] MEDS ORDERED: furosemide inj 100 ML IV SCH (09:25)
--- NOTE | 2019-03-30 09:30 | NUR ---
Per Dr. Colón request i called the son to arrange a family meeting for sunday03/31/2019, called the son, and left a voicemail. Waiting a return call
[2019-03-30] MEDS: DOBUTamine-DoBUTrex 500mg/D5W 250 ML IV SCH ×2 (10:25→14:24)
[2019-03-30 10:31] LABS: OXYGEN SATURATION (MIXED VEN) 77.7 % (60-80); PO2 MIXED VENOUS (TEMP COR) 45.9 mmHg (35-46)
--- NOTE | 2019-03-30 11:31 | NUR ---
TF Consult: Welder Machine Operator requests 100g protein/day given pt BUN continuing to rise 197 today in heavily catabolic state. RD notified MD of current protein recs given catabolic state; to change formula in order to meet compressor operator portable request. Pt still no significant BM since admit over 2 weeks with rectal tube in place 150ml one time only output receiving relistor, lactulose, and colace routinely. MARK d/w RN regarding enema per MD approval given rectal tube in place and constipation. Will monitor for EN tolerance using new formula. TG 320 today on propofol steady past 3 days at 24.48ml/hr; pt additional kcal delivery taken into consideration with new EN recs. Will continue to monitor. Recommendations: 1. Per MD request to provide 100g protein/day; Continuous TF using Vital AF at goal of 55ml/hr providing 1320ml fluid, 1584 kcal, 99g protein, and 1069 ml free water. 2. additional water flush 100 ml q 4 hours per MD 3. Prealbumin q Sunday and ; daily wts 4. Monitor propofol delivery given additional 646kcals/day at this time 5. Routine bowel care; opioid antagonist per MD Addendum: 03/30/19 at [address] Amended: Links added.
--- NOTE | 2019-03-30 15:52 | NUR ---
patients son called back, they will be in at 11am to meet with for a family meeting
[2019-03-30 15:55] LABS: ALBUMIN 3.3 G/DL (3.4-5.0); ANION GAP 11 (8-16); BLOOD UREA NITROGEN 214 MG/DL (7-18); BUN/CREATININE RATIO 125.1 (6.6-38.0); CALCIUM 9.3 MG/DL (8.5-10.1); CHLORIDE 107 MMOL/L (99-107); CREATININE 1.71 MG/DL (0.40-0.90); GLUCOSE 157 MG/DL (70-104); PHOSPHORUS 6.2 MG/DL (2.3-4.5); POTASSIUM 5.1 MMOL/L (3.5-5.1); SODIUM 148 MMOL/L (135-145); TOTAL CARBON DIOXIDE 30.1 MMOL/L (24-32); eGFR 31 ML/MIN
--- NOTE | 2019-03-30 18:25 | NUR ---
Patient in room CICU 2006. I have received report from Aditi No RN and had the opportunity to ask questions and assume patient care. Patient on Rotoprone bed, intubated via endotracheal tube, vent at 80% FiO2 and PEEP of 16, spo2 at 91%. Fentanyl, midazolam and propofol drips infusing for pain control and sedation, will titrate per protocol, Dobutamine drip infusing per provider orders. All monitoring alarms audible. See interventions and EMR for further information. Will continue to monitor.
[2019-03-30] MEDS: insulin glargine (Lantus) pen - multi-dose SQ SCH (20:09)
[2019-03-30 20:40] LABS: ANION GAP 8 (8-16); CALCIUM 8.3 MG/DL (8.5-10.1); CHLORIDE 110 MMOL/L (99-107); CREATININE 1.58 MG/DL (0.40-0.90); GLUCOSE 94 MG/DL (70-104); MAGNESIUM 2.8 MG/DL (1.5-2.4); PHOSPHORUS 5.8 MG/DL (2.3-4.5); POTASSIUM 4.6 MMOL/L (3.5-5.1); SODIUM 149 MMOL/L (135-145); TOTAL CARBON DIOXIDE 31.2 MMOL/L (24-32); eGFR 34 ML/MIN
[2019-03-30 20:41] LABS: BLOOD UREA NITROGEN 192 MG/DL (7-18); BUN/CREATININE RATIO 121.5 (6.6-38.0)
[2019-03-31] VITALS (24 sets, daily range): BP systolic 90–176; BP diastolic 40–95
[2019-03-31] MEDS: mineral oil/petrolatum ophthal oint EACHEYE SCH ×4 (02:19→21:07)
[2019-03-31] MEDS: insulin regular, human U-100 3ml vial - multi-dose SQ SCH ×4 (02:20→21:05)
[2019-03-31] MEDS: FENTANYL 1000MCG/NS 100 ML BAG /PF IV PRN ×6 (02:28→21:01)
[2019-03-31 02:49] LABS: BASOPHILS # (AUTO) 0.2 X10'3 (0-0.2); EOSINOPHILS # (AUTO) 0.1 X10'3 (0-0.9); EOSINOPHILS % (AUTO) 0.3 % (0-6); HEMATOCRIT 30.6 % (35.0-45.0); HEMOGLOBIN 9.3 g/dl (12.0-16.0); LYMPHOCYTES # (AUTO) 1.6 X10'3 (1.1-4.8); LYMPHOCYTES % (AUTO) 9.1 % (21-51); MEAN CORPUSCULAR HEMOGLOBIN 20.8 PG (27.0-31.0); MEAN CORPUSCULAR HGB CONC 30.2 g/dL (33.0-36.5); MEAN PLATELET VOLUME 9.9 FL (7.4-10.4); MONOCYTES # (AUTO) 0.3 X10'3 (0-0.9); MONOCYTES % (AUTO) 1.5 % (2-12); NEUTROPHILS # (AUTO) 15.4 X10'3 (1.8-7.7); NEUTROPHILS % (AUTO) 88.1 % (42-75); PLATELET COUNT 181 X10'3 (140-440); RED BLOOD COUNT 4.44 X10'6 (4.20-5.60); RED CELL DISTRIBUTION WIDTH 20.5 % (11.5-14.5); WHITE BLOOD COUNT 17.5 X10'3 (4.5-11.0)
--- NOTE | 2019-03-31 02:54 | NUR ---
Patient tolerated supine positioning from 0115 to 0245, ice packs applied to face.returned to prone with spo2 at 83-84% and no improvement.
[2019-03-31 02:55] LABS: ALBUMIN 3.2 G/DL (3.4-5.0); ANION GAP 9 (8-16); CALCIUM 9.2 MG/DL (8.5-10.1); CHLORIDE 109 MMOL/L (99-107); CREATININE 1.63 MG/DL (0.40-0.90); GLUCOSE 204 MG/DL (70-104); PHOSPHORUS 6.5 MG/DL (2.3-4.5); SODIUM 149 MMOL/L (135-145); TOTAL CARBON DIOXIDE 31.5 MMOL/L (24-32); eGFR 33 ML/MIN
[2019-03-31 02:56] LABS: BLOOD UREA NITROGEN 197 MG/DL (7-18); BUN/CREATININE RATIO 120.9 (6.6-38.0)
[2019-03-31] MEDS ORDERED: VANCOMYCIN LEVEL IV ONE (03:00)
[2019-03-31] MEDS: midazolam 100mg in NS 100ml 100 ML IV PRN ×5 (03:16→23:08)
[2019-03-31] MEDS: ipratropium/albuterol 3ml nebule NEB SCH ×5 (03:27→23:16)
[2019-03-31] MEDS: propofol 1000mg/100ml bottle 100 ML IV SCH ×8 (03:52→23:49)
[2019-03-31] MEDS: DOBUTamine-DoBUTrex 500mg/D5W 250 ML IV SCH ×2 (03:53→17:07)
[2019-03-31 03:56] LABS: ABG HCO3 25.2 mmol/L (22.0-26.0); ABG OXYGEN SATURATION 93.9 % (95-98); ABG PH (T) 7.322 (7.350-7.450); ABG PO2 (T) 81.2 mmHg (83-108); ALLEN'S TEST POSITIVE; FMetHb 0.3 % (0.3-1.12); FO2Hb 93.6 % (94-100); PATIENT TEMPERATURE 37.4; PEEP 16 cm H2O; RESPIRATORY RATE 25 b/min; TIDAL VOLUME 400 mL
[2019-03-31 06:05] LABS: VANCOMYCIN,TROUGH 28.4 UG/ML (6.0-14.0)
--- NOTE | 2019-03-31 06:35 | NUR ---
Student documentation: I have reviewed and agree with all interventions, assessments performed and documented by Felicita PATEL. Student Medication Administration: For this medication-pass time frame, all medication were reviewed, dispensed, administered and documented per hospital policy by Felicita PATEL. Addendum: 04/01/19 at 0629 by Nilda Thomas RN Felicita oshea RN
--- NOTE | 2019-03-31 06:35 | NUR ---
Problems reprioritized. Patient report given, questions answered & plan of care reviewed with Aditi No RN.
[2019-03-31 07:29] LABS: UREA NITROGEN 24HR,URINE 35.7 GM/24HR (7-20)
--- NOTE | 2019-03-31 07:29 | NUR ---
Patient in room CICU 2006. I have received report from Nilda PATEL and had the opportunity to ask questions and assume patient care. Patient on rotoprone bed in prone position, 62degree right to left rotation with a 11degree reverse Trendelenburg. Patient on ventilator prvc setting fio2 80% peep of 16 sating 86-90, rate 25, tidal volume 400. Fentanyl, versed, propofol and dobutamine infusing at titrated ordered rates. Tube feed being administered per OG tube, vital AF at goal rate of 55 with Q4 100 free water flushes. Barrera and rectal tube draining to gravity. vital signs stable no signs or symptoms of distress will continue to monitor
[2019-03-31] MEDS: lisinopril 5mg tablet OGT SCH (08:00)
[2019-03-31] MEDS: amLODIPine 5mg tablet OGT SCH (08:00)
[2019-03-31] MEDS: K and/or MAG REPLACEMENT MC SCH ×2 (08:00→20:00)
[2019-03-31] MEDS: carVEDilol 12.5mg tablet OGT SCH ×2 (08:00→21:06)
[2019-03-31] MEDS: heparin, porcine 5000 units/ml vial SQ SCH ×2 (08:03→21:08)
[2019-03-31] MEDS: docusate sodium 100mg/10ml UD cup OGT SCH ×2 (08:03→21:06)
[2019-03-31] MEDS: pantoprazole 40 MG vial IV SCH (08:03)
[2019-03-31] MEDS: methylPREDNISolone sod succ/PF 40mg inj. IV SCH ×2 (08:03→21:07)
[2019-03-31] MEDS: methylnaltrexone br 12mg/0.6ml inj***SubQ only SQ SCH (08:03)
--- NOTE | 2019-03-31 09:30 | NUR ---
Dr Iverson by to see patient stated to stop proning patient due to facial swelling, he is also considering CVVH but will make the final decision after the family meeting this morning. He also ordered a stat uU/S of L lung to see if there is fluid and if patient needs to be tapped he is also considering a ANTHONY, decision is pending a follow up phone call from Dr. Rosenberg. Confirmed that he still wants daily blood cultures to be drawn on patient. He also stated to stop Q6 renal lab draw and just preform daily labs on patient as per protocol. Informed him that the patients braces that are cutting in to the patients tongue have been there since she was 17 years old as reported by the patients oldest son.
--- NOTE | 2019-03-31 12:00 | NUR ---
stopped patients rotorest turning to place her in prone position for a L lung ultrasound to see if there is enough fluid to tap. Patient quickly desated to 78%, put all appropriate pads in place and locked them. put patient back to supine rotorest setting in reverse Trendelenburg, used the 100% fio2 option on the ventilator to help patient recover from her low saturation. Patient is still currently recovering from being prone sats are now 82% on 100% fio2. Will continue to monitor. Called and informed Dr. Iverson of events, he stated patient is too unstable at this time to preform the ultra sound. Will try again later if she improves. He also infromed me at this time that he received a phone call from [facility] [place] that they will not accept the patient as a transfer.
[2019-03-31 15:09] LABS: ATYPICAL PANCA <1:20 titer (Neg:<1:20); CYTOPLASMIC (C-ANCA) <1:20 titer (Neg:<1:20); PERINUCLEAR (P-ANCA) <1:20 titer (Neg:<1:20)
[2019-03-31] MEDS: furosemide 10 MG/1 ML 10ml inj IV SCH ×2 (15:59→23:50)
--- NOTE | 2019-03-31 18:25 | NUR ---
Problems reprioritized. Patient report given, questions answered & plan of care reviewed with Nilda PATEL.
--- NOTE | 2019-03-31 18:30 | NUR ---
Patient in room CICU 2006. I have received report from Aditi No RN and had the opportunity to ask questions and assume patient care. Patient on Rotoprone bed, orders to only turn supine position with left and right rotation. Patient intubated via Endotracheal tube, FiO2 at 90%, PEEP 16, spo2 at 93%. Dobutamine drip infusing per provider orders. Fentanyl drip, Midazolam drip and Propfol drip infusing for pain control and sedation respectively, will titrate per protocol, see IV spreadsheet for further information, all medications infusing via central line. See Interventions and EMR for further information. All monitoring alarms audible. Will continue to monitor.
--- NOTE | 2019-03-31 19:56 | NUR ---
Visitor "Bill" at bedside, left pink stuffed animal for patient.
[2019-03-31] MEDS: insulin glargine (Lantus) pen - multi-dose SQ SCH (21:05)
[2019-03-31] MEDS: NYSTATIN CREAM - 30GM TUBE TP SCH (21:07)
[2019-03-31 22:07] LABS: ALLEN'S TEST POSITIVE
[2019-04-01] VITALS (25 sets, daily range): BP systolic 79–169; BP diastolic 45–84
[2019-04-01] MEDS: FENTANYL 1000MCG/NS 100 ML BAG /PF IV PRN ×8 (00:39→23:43)
[2019-04-01] MEDS: insulin regular, human U-100 3ml vial - multi-dose SQ SCH ×3 (02:09→20:37)
[2019-04-01] MEDS: mineral oil/petrolatum ophthal oint EACHEYE SCH ×4 (02:12→20:32)
[2019-04-01] MEDS: ipratropium/albuterol 3ml nebule NEB SCH ×6 (02:43→23:15)
[2019-04-01 02:47] LABS: BASOPHILS % (AUTO) 0.3 % (0-1); EOSINOPHILS # (AUTO) 0.2 X10'3 (0-0.9); EOSINOPHILS % (AUTO) 1.1 % (0-6); HEMATOCRIT 30.7 % (35.0-45.0); HEMOGLOBIN 9.3 g/dl (12.0-16.0); LYMPHOCYTES # (AUTO) 0.3 X10'3 (1.1-4.8); LYMPHOCYTES % (AUTO) 1.7 % (21-51); MEAN CORPUSCULAR HGB CONC 30.3 g/dL (33.0-36.5); MEAN CORPUSCULAR VOLUME 69.3 FL (78-98); MEAN PLATELET VOLUME 11.2 FL (7.4-10.4); MONOCYTES # (AUTO) 0.4 X10'3 (0-0.9); MONOCYTES % (AUTO) 2.3 % (2-12); NEUTROPHILS # (AUTO) 16.1 X10'3 (1.8-7.7); NEUTROPHILS % (AUTO) 94.6 % (42-75); PLATELET COUNT 213 X10'3 (140-440); RED BLOOD COUNT 4.43 X10'6 (4.20-5.60); RED CELL DISTRIBUTION WIDTH 21.1 % (11.5-14.5)
[2019-04-01 02:52] LABS: ALANINE AMINOTRANSFERASE 36 U/L (12-78); ALBUMIN 3.3 G/DL (3.4-5.0); ALBUMIN/GLOBULIN RATIO 0.9 (1.1-1.5); ALKALINE PHOSPHATASE 42 IU/L (46-116); ANION GAP 9 (8-16); ASPARTATE AMINO TRANSFERASE 23 U/L (10-37); BILIRUBIN,TOTAL 0.6 MG/DL (0.1-1.0); CALCIUM 9.1 MG/DL (8.5-10.1); CHLORIDE 110 MMOL/L (99-107); GLUCOSE 132 MG/DL (70-104); POTASSIUM 5.4 MMOL/L (3.5-5.1); SODIUM 150 MMOL/L (135-145); TOTAL CARBON DIOXIDE 31.4 MMOL/L (24-32); TOTAL PROTEIN 6.8 G/DL (6.4-8.2); TRIGLYCERIDES 308 MG/DL (20-135); VANCOMYCIN,RANDOM 19.2 UG/ML; eGFR 40 ML/MIN
[2019-04-01] MEDS: propofol 1000mg/100ml bottle 100 ML IV SCH ×9 (02:53→23:43)
[2019-04-01] MEDS ORDERED: VANCOMYCIN LEVEL IV ONE (03:00)
[2019-04-01 03:05] LABS: BLOOD UREA NITROGEN 176 MG/DL (7-18); BUN/CREATININE RATIO 125.7 (6.6-38.0)
[2019-04-01 03:46] LABS: MAGNESIUM 3.1 MG/DL (1.5-2.4); PHOSPHORUS 5.8 MG/DL (2.3-4.5)
[2019-04-01 04:11] LABS: ANISOCYTOSIS 3+; HYPOCHROMASIA 2+; MICROCYTOSIS 2+
[2019-04-01 04:12] LABS: STOMATOCYTES 1+
[2019-04-01 04:13] LABS: LARGE PLATELETS MODERATE; TARGET CELLS 1+
[2019-04-01] MEDS: midazolam 100mg in NS 100ml 100 ML IV PRN ×4 (04:18→19:39)
[2019-04-01 04:25] LABS: ABG BASE EXCESS 2.9 mmol/L (-2.0-3.0); ABG HCO3 27.9 mmol/L (22.0-26.0); ABG OXYGEN SATURATION 94.2 % (95-98); ABG PCO2 (T) 47.3 mmHg (35.0-45.0); ABG PH (T) 7.394 (7.350-7.450); ABG PO2 (T) 77.4 mmHg (83-108); ALLEN'S TEST POSITIVE; FCOHb 0.3 % (0.5-1.5); FMetHb 0.3 % (0.3-1.12); FO2Hb 93.6 % (94-100); PATIENT TEMPERATURE 38.1; PEEP 16 cm H2O; RESPIRATORY RATE 25 b/min; TIDAL VOLUME 400 mL; TOTAL HEMOGLOBIN 10.4 G/dl (12.0-16.0)
--- NOTE | 2019-04-01 06:27 | NUR ---
Student documentation: I have reviewed and agree with all interventions, assessments performed and documented by Felicita. Student Medication Administration: For this medication-pass time frame, all medication were reviewed, dispensed, administered and documented per hospital policy by Felicita.
--- NOTE | 2019-04-01 06:30 | NUR ---
Patient in room CICU 2006. I have received report from Nilda PATEL and had the opportunity to ask questions and assume patient care. Patient on Rotoprone bed in the rotorest setting 45degree rotation left to right with 11 degree reverse Trendelenburg. Patient on ventilator 80% fio2 peep of 16 rate of 25 tidal volume 400, sating 94-98%. Fentanyl, versed, propofol, and dobutamine infusing to R IJ central line and titrated rates as ordered. Tube feed infusing at goal rate of 55 as ordered, austin draining to gravity, with burns red output, rectal tube in place with minimal liquid output. Vital signs stable no signs or symptoms of distress will continue to monitor
--- NOTE | 2019-04-01 06:31 | NUR ---
Problems reprioritized. Patient report given, questions answered & plan of care reviewed with Aditi No RN.
[2019-04-01] MEDS: DOBUTamine-DoBUTrex 500mg/D5W 250 ML IV SCH ×2 (06:39→19:39)
--- NOTE | 2019-04-01 07:00 | NUR ---
vent settings changes to fio2 dropped to 75% from 80% will continue to monitor
[2019-04-01] MEDS: NYSTATIN CREAM - 30GM TUBE TP SCH ×2 (07:32→20:32)
[2019-04-01] MEDS: pantoprazole 40 MG vial IV SCH (07:33)
[2019-04-01] MEDS: furosemide 10 MG/1 ML 10ml inj IV SCH ×3 (07:33→23:59)
[2019-04-01] MEDS: methylPREDNISolone sod succ/PF 40mg inj. IV SCH ×2 (07:33→16:42)
[2019-04-01] MEDS: docusate sodium 100mg/10ml UD cup OGT SCH ×2 (07:33→20:33)
[2019-04-01] MEDS: lisinopril 5mg tablet OGT SCH (07:34)
[2019-04-01] MEDS: amLODIPine 5mg tablet OGT SCH (07:34)
[2019-04-01] MEDS: heparin, porcine 5000 units/ml vial SQ SCH ×2 (07:34→20:28)
[2019-04-01] MEDS: carVEDilol 12.5mg tablet OGT SCH (07:34)
[2019-04-01] MEDS: K and/or MAG REPLACEMENT MC SCH ×2 (07:40→20:00)
[2019-04-01 08:11] LABS: ALBUMIN 3.2 G/DL (3.4-5.0); ANION GAP 9 (8-16); CALCIUM 9.1 MG/DL (8.5-10.1); CHLORIDE 110 MMOL/L (99-107); CREATININE 1.38 MG/DL (0.40-0.90); GLUCOSE 99 MG/DL (70-104); PHOSPHORUS 5.2 MG/DL (2.3-4.5); POTASSIUM 5.1 MMOL/L (3.5-5.1); SODIUM 150 MMOL/L (135-145); TOTAL CARBON DIOXIDE 30.9 MMOL/L (24-32); eGFR 40 ML/MIN
[2019-04-01 08:12] LABS: BLOOD UREA NITROGEN 173 MG/DL (7-18); BUN/CREATININE RATIO 125.4 (6.6-38.0)
--- NOTE | 2019-04-01 09:20 | NUR ---
Dr. Iverson bedside, D/c coreg, norvasc and lisinopril, start cardene and titrate to keep systolic blood pressure below 130, changed solumedrol dose and frequency, ordered a culture of the wound on the patients tongue as well, ordered to keep tongue padded to prevent further injury, Dr. Iverson also placed patients swollen tongue back in her oral cavity. Changed ventilator settings, fio2 to 65%, rate to 16
[2019-04-01] MEDS ORDERED: niCARdipine I.V. 50 MG in normal saline 250ml IV soln 230 ML IV SCH (09:55)
[2019-04-01] MEDS: niCARdipine I.V. 50 MG in normal saline 250ml IV soln 230 ML IV SCH ×2 (10:05→20:05)
--- NOTE | 2019-04-01 10:50 | NUR ---
WAS TOLD VENT CHANGES WERE MADE BY MD INESSA. WHEN RT WAS NOT AROUND Addendum: 04/01/19 at 1054 by Cheyenne Ling RT Amended: Links added.
[2019-04-01] MEDS: lactulose 20gm/30ml cup OGT PRN (11:20)
[2019-04-01] MEDS: VANCOmycin 1250MG/NS 250ml Bag 250 ML IV SCH (13:07)
--- NOTE | 2019-04-01 14:00 | NUR ---
notified Dr. Iverson of low urine out put past two hours hours 1300 was 20 hours 1400 was 15. he stated to continue to observe it for now no new orders at this time
[2019-04-01 15:45] LABS: ABG BASE EXCESS -1.4 mmol/L (-2.0-3.0); ABG HCO3 25.5 mmol/L (22.0-26.0); ABG OXYGEN SATURATION 92.9 % (95-98); ABG PCO2 (T) 54.7 mmHg (35.0-45.0); ABG PH (T) 7.287 (7.350-7.450); ABG PO2 (T) 74.8 mmHg (83-108); ALLEN'S TEST POSITIVE; FCOHb 0.3 % (0.5-1.5); FMetHb 0.2 % (0.3-1.12); FO2Hb 92.4 % (94-100); PEEP 15 cm H2O; RESPIRATORY RATE 16 b/min; TIDAL VOLUME 400 mL; TOTAL HEMOGLOBIN 9.5 G/dl (12.0-16.0)
--- NOTE | 2019-04-01 16:00 | NUR ---
Called Dr. Iverson regarding patients continually trending downward blood pressures told him that patient is not maintaining a map of 60 she is in the 50's, he stated to start her on levophed and call her family to update them of her changes. Called son Sadi at the listed phone number and left a message for him to call me back
[2019-04-01] MEDS: NORepinephrine 8mg/ 250ml NS 250 ML IV SCH ×4 (16:16→22:28)
--- NOTE | 2019-04-01 18:28 | NUR ---
Problems reprioritized. Patient report given, questions answered & plan of care reviewed with .
[2019-04-01] MEDS: insulin glargine (Lantus) pen - multi-dose SQ SCH (20:39)
--- NOTE | 2019-04-01 23:00 | NUR ---
RN Note -MD Communication Called February regarding pt shivering and increasing temp. Received order to turn off cooling blanket and monitor.
[2019-04-02] VITALS (24 sets, daily range): BP systolic 88–173; BP diastolic 48–93
[2019-04-02] MEDS: VANCOmycin 1250MG/NS 250ml Bag 250 ML IV SCH ×2 (00:07→12:00)
[2019-04-02] MEDS: NORepinephrine 8mg/ 250ml NS 250 ML IV SCH ×11 (00:34→23:40)
[2019-04-02] MEDS: midazolam 100mg in NS 100ml 100 ML IV PRN ×3 (01:59→19:05)
[2019-04-02] MEDS: insulin regular, human U-100 3ml vial - multi-dose SQ SCH ×4 (02:20→20:33)
[2019-04-02] MEDS: mineral oil/petrolatum ophthal oint EACHEYE SCH ×4 (02:25→20:03)
[2019-04-02 02:57] LABS: ALANINE AMINOTRANSFERASE 37 U/L (12-78); ALBUMIN 3.2 G/DL (3.4-5.0); ALBUMIN/GLOBULIN RATIO 0.9 (1.1-1.5); ALKALINE PHOSPHATASE 51 IU/L (46-116); ANION GAP 12 (8-16); ASPARTATE AMINO TRANSFERASE 22 U/L (10-37); BILIRUBIN,TOTAL 0.6 MG/DL (0.1-1.0); CALCIUM 8.7 MG/DL (8.5-10.1); CHLORIDE 109 MMOL/L (99-107); CREATININE 1.74 MG/DL (0.40-0.90); GLUCOSE 187 MG/DL (70-104); POTASSIUM 5.7 MMOL/L (3.5-5.1); SODIUM 147 MMOL/L (135-145); TOTAL CARBON DIOXIDE 26.3 MMOL/L (24-32); TOTAL PROTEIN 6.8 G/DL (6.4-8.2); TRIGLYCERIDES 445 MG/DL (20-135); eGFR 31 ML/MIN
[2019-04-02 03:00] LABS: BLOOD UREA NITROGEN 185 MG/DL (7-18); BUN/CREATININE RATIO 106.3 (6.6-38.0)
[2019-04-02 03:03] LABS: BASOPHILS # (AUTO) 0.1 X10'3 (0-0.2); BASOPHILS % (AUTO) 0.6 % (0-1); EOSINOPHILS % (AUTO) 0 % (0-6); HEMATOCRIT 29.3 % (35.0-45.0); HEMOGLOBIN 8.8 g/dl (12.0-16.0); LYMPHOCYTES # (AUTO) 0.2 X10'3 (1.1-4.8); LYMPHOCYTES % (AUTO) 1.1 % (21-51); MEAN CORPUSCULAR HEMOGLOBIN 21.4 PG (27.0-31.0); MEAN CORPUSCULAR HGB CONC 30.1 g/dL (33.0-36.5); MONOCYTES # (AUTO) 0.3 X10'3 (0-0.9); MONOCYTES % (AUTO) 1.6 % (2-12); NEUTROPHILS # (AUTO) 15.8 X10'3 (1.8-7.7); NEUTROPHILS % (AUTO) 96.7 % (42-75); PLATELET COUNT 219 X10'3 (140-440); RED BLOOD COUNT 4.12 X10'6 (4.20-5.60); RED CELL DISTRIBUTION WIDTH 20.5 % (11.5-14.5); WHITE BLOOD COUNT 16.3 X10'3 (4.5-11.0)
[2019-04-02] MEDS: ipratropium/albuterol 3ml nebule NEB SCH ×6 (03:42→23:09)
[2019-04-02 03:55] LABS: ABG BASE EXCESS -1.9 mmol/L (-2.0-3.0); ABG HCO3 26.9 mmol/L (22.0-26.0); ABG OXYGEN SATURATION 92.6 % (95-98); ABG PCO2 (T) 72.7 mmHg (35.0-45.0); ABG PH (T) 7.191 (7.350-7.450); ABG PO2 (T) 79.6 mmHg (83-108); ALLEN'S TEST POSITIVE; FCOHb 0.3 % (0.5-1.5); FO2Hb 92.3 % (94-100); PATIENT TEMPERATURE 37.9; PEEP 16 cm H2O; RESPIRATORY RATE 16 b/min; TIDAL VOLUME 400 mL; TOTAL HEMOGLOBIN 9.9 G/dl (12.0-16.0)
[2019-04-02 03:55] LABS: TOTAL CELLS COUNTED 100
[2019-04-02 03:56] LABS: ANISOCYTOSIS 3+; HYPOCHROMASIA 1+; MICROCYTOSIS 2+; PLATELET ESTIMATE NORMAL
[2019-04-02 03:57] LABS: STOMATOCYTES 1+; TOXIC GRANULATION 1+
[2019-04-02] MEDS ORDERED: VECuronium br 10mg inj. IV ONE (05:00)
--- NOTE | 2019-04-02 05:35 | NUR ---
RN Note -MD Communication Called February regarding CVL placement. Pt's BP and vitals are WNL.
[2019-04-02] MEDS: niCARdipine I.V. 50 MG in normal saline 250ml IV soln 230 ML IV SCH (06:05)
--- NOTE | 2019-04-02 06:48 | NUR ---
Patient in room CICU 2006. I have received report from AMANDA Sandoval and had the opportunity to ask questions and assume patient care. DR. Golden at bedside placing new CVL in R groin
[2019-04-02] MEDS: DOBUTamine-DoBUTrex 500mg/D5W 250 ML IV SCH ×2 (08:00→21:38)
[2019-04-02] MEDS: pantoprazole 40 MG vial IV SCH (08:00)
[2019-04-02] MEDS: K and/or MAG REPLACEMENT MC SCH ×2 (08:00→19:57)
[2019-04-02] MEDS: methylnaltrexone br 12mg/0.6ml inj***SubQ only SQ SCH (08:01)
[2019-04-02] MEDS: heparin, porcine 5000 units/ml vial SQ SCH ×2 (08:01→19:57)
[2019-04-02] MEDS: methylPREDNISolone sod succ/PF 40mg inj. IV SCH ×3 (08:01→16:21)
[2019-04-02] MEDS: furosemide 10 MG/1 ML 10ml inj IV SCH ×2 (08:01→16:21)
[2019-04-02] MEDS: NYSTATIN CREAM - 30GM TUBE TP SCH ×2 (08:02→20:03)
[2019-04-02] MEDS: docusate sodium 100mg/10ml UD cup OGT SCH ×2 (08:02→19:57)
[2019-04-02] MEDS: FENTANYL 1000MCG/NS 100 ML BAG /PF IV PRN ×3 (09:12→22:30)
--- NOTE | 2019-04-02 13:39 | NUR ---
Reassessment: Pt tolerating TF with GRV WNL. Pt with elevated TG at 445, d/w MD and bedside RN. Per MD to d/c propofol. Pt with frequent small BM however no significant BM since WAREHOUSE ORDER SELECTOR over 2 weeks ago. Caustics Loader requests 100g protein/day given pt BUN continues to be elevated in heavily catabolic state. RD notified MD of current protein recs given catabolic state; changed formula in order to meet accounts receivable administrator request. Will continue to monitor. Recommendations: 1. Per MD request to provide 100g protein/day; Continuous TF using Vital AF at goal of 55ml/hr providing 1320ml fluid, 1584 kcal, 99g protein, and 1069 ml free water. 2. additional water flush 100 ml q 4 hours per MD 3. Prealbumin q Sunday and ; daily wts 4. Routine bowel care; opioid antagonist per MD Addendum: 04/02/19 at 1340 by Wing Lemuel FLORES Amended: Links added. Addendum: 04/02/19 at [address] MARK agree with note
--- NOTE | 2019-04-02 17:36 | NUR ---
Pt placed on TTM cooling blanket this afternoon when temp increased to 39.3 and HR reached 120s. Cooling unsuccessful using alternative measures and pt is allergic to tylenol. VSS this evening and temp normothermic.
--- NOTE | 2019-04-02 18:23 | NUR ---
Patient in room CICU 2007. I have received report from Nathaly PATEL, and had the opportunity to ask questions and assume patient care.
[2019-04-02] MEDS: lactobacillus rhamnosus 10,000 MMU CELLS/CAPSULE PO SCH (19:57)
[2019-04-02] MEDS: insulin glargine (Lantus) pen - multi-dose SQ SCH (20:34)
[2019-04-02 20:55] LABS: ABG BASE EXCESS -0.7 mmol/L (-2.0-3.0); ABG HCO3 25.8 mmol/L (22.0-26.0); ABG OXYGEN SATURATION 96.5 % (95-98); ABG PCO2 (T) 51.4 mmHg (35.0-45.0); ABG PH (T) 7.318 (7.350-7.450); ABG PO2 (T) 92.6 mmHg (83-108); ALLEN'S TEST POSITIVE; FCOHb 0.1 % (0.5-1.5); FMetHb 0.3 % (0.3-1.12); FO2Hb 96.1 % (94-100); PATIENT TEMPERATURE 36.9; PEEP 16 cm H2O; RESPIRATORY RATE 16 b/min; TIDAL VOLUME 475 mL; TOTAL HEMOGLOBIN 9.6 G/dl (12.0-16.0)
[2019-04-02] MEDS ORDERED: VANCOMYCIN LEVEL IV ONE (23:30)
[2019-04-03] VITALS (24 sets, daily range): BP systolic 91–157; BP diastolic 46–86
[2019-04-03] MEDS: VANCOmycin 1250MG/NS 250ml Bag 250 ML IV SCH
[2019-04-03] MEDS: methylPREDNISolone sod succ/PF 40mg inj. IV SCH ×4 (00:16→23:52)
[2019-04-03] MEDS: furosemide 10 MG/1 ML 10ml inj IV SCH ×4 (00:16→23:52)
--- NOTE | 2019-04-03 01:25 | NUR ---
Received critical Vanco trough of 43.3. Pharmacy and DENITRATOR Miguelito notified. Pharmacy held current dose and will make appropriate changes to following doses. Will continue to monitor.
[2019-04-03] MEDS: NORepinephrine 8mg/ 250ml NS 250 ML IV SCH ×3 (01:46→15:19)
[2019-04-03] MEDS: mineral oil/petrolatum ophthal oint EACHEYE SCH ×4 (02:14→19:56)
[2019-04-03] MEDS: insulin regular, human U-100 3ml vial - multi-dose SQ SCH ×4 (02:15→20:30)
[2019-04-03] MEDS: midazolam 100mg in NS 100ml 100 ML IV PRN ×3 (02:18→22:39)
[2019-04-03 02:45] LABS: BASOPHILS # (AUTO) 0.1 X10'3 (0-0.2); BASOPHILS % (AUTO) 0.3 % (0-1); EOSINOPHILS % (AUTO) 0.2 % (0-6); HEMATOCRIT 29.2 % (35.0-45.0); HEMOGLOBIN 8.8 g/dl (12.0-16.0); LYMPHOCYTES # (AUTO) 0.3 X10'3 (1.1-4.8); LYMPHOCYTES % (AUTO) 1.9 % (21-51); MEAN CORPUSCULAR HEMOGLOBIN 21.3 PG (27.0-31.0); MEAN CORPUSCULAR HGB CONC 30.2 g/dL (33.0-36.5); MEAN CORPUSCULAR VOLUME 70.7 FL (78-98); MEAN PLATELET VOLUME 10.1 FL (7.4-10.4); MONOCYTES # (AUTO) 0.7 X10'3 (0-0.9); NEUTROPHILS # (AUTO) 15.2 X10'3 (1.8-7.7); NEUTROPHILS % (AUTO) 93.6 % (42-75); PLATELET COUNT 217 X10'3 (140-440); RED BLOOD COUNT 4.13 X10'6 (4.20-5.60); RED CELL DISTRIBUTION WIDTH 20.6 % (11.5-14.5); WHITE BLOOD COUNT 16.3 X10'3 (4.5-11.0)
[2019-04-03 03:06] LABS: ALANINE AMINOTRANSFERASE 37 U/L (12-78); ALBUMIN 3.3 G/DL (3.4-5.0); ALBUMIN/GLOBULIN RATIO 0.8 (1.1-1.5); ALKALINE PHOSPHATASE 54 IU/L (46-116); ANION GAP 12 (8-16); ASPARTATE AMINO TRANSFERASE 20 U/L (10-37); BILIRUBIN,TOTAL 0.7 MG/DL (0.1-1.0); CALCIUM 9.3 MG/DL (8.5-10.1); CHLORIDE 111 MMOL/L (99-107); CREATININE 1.45 MG/DL (0.40-0.90); GLUCOSE 147 MG/DL (70-104); MAGNESIUM 3.1 MG/DL (1.5-2.4); PHOSPHORUS 7.2 MG/DL (2.3-4.5); POTASSIUM 5.4 MMOL/L (3.5-5.1); SODIUM 152 MMOL/L (135-145); TOTAL CARBON DIOXIDE 29.1 MMOL/L (24-32); TOTAL PROTEIN 7.3 G/DL (6.4-8.2); eGFR 38 ML/MIN
[2019-04-03 03:09] LABS: BLOOD UREA NITROGEN 172 MG/DL (7-18); BUN/CREATININE RATIO 118.6 (6.6-38.0)
[2019-04-03] MEDS: ipratropium/albuterol 3ml nebule NEB SCH ×6 (03:19→23:02)
[2019-04-03 03:40] LABS: ABG BASE EXCESS -0.4 mmol/L (-2.0-3.0); ABG HCO3 26.3 mmol/L (22.0-26.0); ABG PCO2 (T) 53.6 mmHg (35.0-45.0); ABG PH (T) 7.308 (7.350-7.450); ALLEN'S TEST POSITIVE; FCOHb 0.1 % (0.5-1.5); FMetHb 0.1 % (0.3-1.12); FO2Hb 95.8 % (94-100); PATIENT TEMPERATURE 36.9; PEEP 16 cm H2O; RESPIRATORY RATE 16 b/min; TIDAL VOLUME 475 mL; TOTAL HEMOGLOBIN 9.7 G/dl (12.0-16.0)
[2019-04-03 04:36] LABS: TOTAL CELLS COUNTED 100
[2019-04-03 04:37] LABS: HYPERSEGMENTED NEUTROPHILS 1+
[2019-04-03 04:39] LABS: ANISOCYTOSIS 2+; LARGE PLATELETS MODERATE; MICROCYTOSIS 2+
[2019-04-03 04:40] LABS: HYPOCHROMASIA 2+; PLATELET ESTIMATE NORMAL
--- NOTE | 2019-04-03 06:23 | NUR ---
Problems reprioritized. Patient report given, questions answered & plan of care reviewed with Nathaly PATEL.
--- NOTE | 2019-04-03 06:59 | NUR ---
Patient in room CICU 2006. I have received report from AMANDA Perez and had the opportunity to ask questions and assume patient care.
[2019-04-03] MEDS: lactobacillus rhamnosus 10,000 MMU CELLS/CAPSULE PO SCH ×2 (07:25→19:56)
[2019-04-03] MEDS: pantoprazole 40 MG vial IV SCH (07:25)
[2019-04-03] MEDS: docusate sodium 100mg/10ml UD cup OGT SCH ×2 (07:25→19:56)
[2019-04-03] MEDS: NYSTATIN CREAM - 30GM TUBE TP SCH ×2 (07:26→19:56)
[2019-04-03] MEDS: heparin, porcine 5000 units/ml vial SQ SCH ×2 (07:26→19:56)
[2019-04-03] MEDS: K and/or MAG REPLACEMENT MC SCH ×2 (08:00→19:57)
[2019-04-03] MEDS: FENTANYL 1000MCG/NS 100 ML BAG /PF IV PRN (09:19)
--- NOTE | 2019-04-03 11:19 | NUR ---
Per Dr. Iverson, will stop rotating pt to assess ability to take pt off rotoprone bed
[2019-04-03] MEDS ORDERED: fluconazole-Diflucan 200mg/NS 100 ML IV ONE (11:20)
--- NOTE | 2019-04-03 13:38 | NUR ---
Follow up: Patient's sodium is elevated today at 152, discussed at rounds with MD, per MD to have water flush 150 ml q 4 hours, d/w bedside RN. Per bedside RD patient's rectal tube came out last night and while replacing patient continued to have unmeasurable stool output; stool output documentation has 20 and 50 ml however rectal tube output in bag appears to be more than that. Recommend to continue with bowel care. Will continue to follow. Reassessment: Pt tolerating TF with GRV WNL. Pt with elevated TG at 445, d/w MD and bedside RN. Per MD to d/c propofol. Pt with frequent small BM however no significant BM since VISUAL MERCHANDISE MANAGER over 2 weeks ago. Ingot Supervisor requests 100g protein/day given pt BUN continues to be elevated in heavily catabolic state. RD notified MD of current protein recs given catabolic state; changed formula in order to meet reservations specialist request. Will continue to monitor. Recommendations: 1. Per MD request to provide 100g protein/day; Continuous TF using Vital AF at goal of 55ml/hr providing 1320ml fluid, 1584 kcal, 99g protein, and 1069 ml free water. 2. additional water flush 150 ml q 4 hours per MD 3. Prealbumin q Sunday and ; daily wts 4. Routine bowel care; opioid antagonist per Addendum: 04/03/19 at [address] Amended: Links added.
[2019-04-03] MEDS: MORPHINE/PF 100 MG in NS 100ml IV IV SCH ×2 (14:32→22:40)
--- NOTE | 2019-04-03 14:34 | NUR ---
CHANGES TO VENTILATOR TO TO RATE AND VOLUME MADE BY DR. WYLIE. NOT NOTED BY RT UNTIL END OF SHIFT. PASSED ON REPORT TO DIRECTOR CORPORATE AND FOLLOW UP ABG PERFORMED AND APPROPRIATE CHANGES MADE. Addendum: 04/03/19 at 1436 by Marty Vee RT Amended: Links added.
[2019-04-03] MEDS: DOBUTamine-DoBUTrex 500mg/D5W 250 ML IV SCH ×2 (16:07→23:52)
--- NOTE | 2019-04-03 18:17 | NUR ---
Patient in room CICU 2007. I have received report from Nathaly PATEL, and had the opportunity to ask questions and assume patient care.
[2019-04-03] MEDS: linezolid 600mg/300ml PREMIX 300 ML IV SCH (19:57)
[2019-04-03] MEDS: insulin glargine (Lantus) pen - multi-dose SQ SCH (20:30)
[2019-04-04] VITALS (24 sets, daily range): BP systolic 100–159; BP diastolic 54–91
[2019-04-04] MEDS: NORepinephrine 8mg/ 250ml NS 250 ML IV SCH (01:46)
[2019-04-04] MEDS: mineral oil/petrolatum ophthal oint EACHEYE SCH ×4 (02:06→19:50)
[2019-04-04] MEDS: insulin regular, human U-100 3ml vial - multi-dose SQ SCH ×4 (02:09→20:16)
[2019-04-04] MEDS: ipratropium/albuterol 3ml nebule NEB SCH ×6 (02:48→23:35)
[2019-04-04] MEDS: VANCOMYCIN LEVEL IV SCH (03:00)
[2019-04-04 03:31] LABS: BASOPHILS # (AUTO) 0.1 X10'3 (0-0.2); BASOPHILS % (AUTO) 0.4 % (0-1); EOSINOPHILS % (AUTO) 0.2 % (0-6); HEMATOCRIT 28.5 % (35.0-45.0); HEMOGLOBIN 8.6 g/dl (12.0-16.0); LYMPHOCYTES # (AUTO) 0.2 X10'3 (1.1-4.8); LYMPHOCYTES % (AUTO) 1.2 % (21-51); MEAN CORPUSCULAR HEMOGLOBIN 21.3 PG (27.0-31.0); MEAN CORPUSCULAR HGB CONC 30.3 g/dL (33.0-36.5); MEAN CORPUSCULAR VOLUME 70.2 FL (78-98); MEAN PLATELET VOLUME 10.5 FL (7.4-10.4); MONOCYTES # (AUTO) 0.3 X10'3 (0-0.9); MONOCYTES % (AUTO) 2.2 % (2-12); NEUTROPHILS # (AUTO) 14.5 X10'3 (1.8-7.7); PLATELET COUNT 235 X10'3 (140-440); RED BLOOD COUNT 4.06 X10'6 (4.20-5.60); WHITE BLOOD COUNT 15.1 X10'3 (4.5-11.0)
[2019-04-04 03:45] LABS: ABG BASE EXCESS -0.5 mmol/L (-2.0-3.0); ABG HCO3 25.3 mmol/L (22.0-26.0); ABG OXYGEN SATURATION 97.8 % (95-98); ABG PCO2 (T) 46.9 mmHg (35.0-45.0); ABG PO2 (T) 119.5 mmHg (83-108); ALLEN'S TEST POSITIVE; FCOHb 0.4 % (0.5-1.5); FMetHb 0.3 % (0.3-1.12); FO2Hb 97.1 % (94-100); PATIENT TEMPERATURE 37.1; RESPIRATORY RATE 16 b/min; TIDAL VOLUME 475 mL; TOTAL HEMOGLOBIN 9.3 G/dl (12.0-16.0)
[2019-04-04 04:17] LABS: ANISOCYTOSIS 3+; HYPOCHROMASIA 1+; PLATELET ESTIMATE NORMAL; POLYCHROMASIA FEW
[2019-04-04 04:18] LABS: MICROCYTOSIS 1+; SCHISTOCYTES FEW; TARGET CELLS FEW
[2019-04-04 05:07] LABS: ALANINE AMINOTRANSFERASE 35 U/L (12-78); ALBUMIN 3.3 G/DL (3.4-5.0); ALBUMIN/GLOBULIN RATIO 0.9 (1.1-1.5); ALKALINE PHOSPHATASE 47 IU/L (46-116); ANION GAP 10 (8-16); ASPARTATE AMINO TRANSFERASE 18 U/L (10-37); BILIRUBIN,TOTAL 0.7 MG/DL (0.1-1.0); CALCIUM 9.1 MG/DL (8.5-10.1); CHLORIDE 114 MMOL/L (99-107); GLUCOSE 174 MG/DL (70-104); POTASSIUM 5.6 MMOL/L (3.5-5.1); SODIUM 152 MMOL/L (135-145); TOTAL PROTEIN 7.1 G/DL (6.4-8.2); eGFR 40 ML/MIN
[2019-04-04] MEDS: midazolam 100mg in NS 100ml 100 ML IV PRN ×3 (05:18→17:36)
[2019-04-04 05:23] LABS: BLOOD UREA NITROGEN 173 MG/DL (7-18); BUN/CREATININE RATIO 123.6 (6.6-38.0); MAGNESIUM 3.1 MG/DL (1.5-2.4); PHOSPHORUS 6.2 MG/DL (2.3-4.5)
[2019-04-04 05:24] LABS: VANCOMYCIN,TROUGH 27.2 UG/ML (6.0-14.0)
--- NOTE | 2019-04-04 06:37 | NUR ---
Problems reprioritized. Patient report given, questions answered & plan of care reviewed with Darwin PATEL.
[2019-04-04] MEDS: lactobacillus rhamnosus 10,000 MMU CELLS/CAPSULE PO SCH ×2 (07:33→19:50)
[2019-04-04] MEDS: docusate sodium 100mg/10ml UD cup OGT SCH ×2 (07:33→19:50)
[2019-04-04] MEDS: pantoprazole 40 MG vial IV SCH (07:33)
[2019-04-04] MEDS: NYSTATIN CREAM - 30GM TUBE TP SCH ×2 (07:33→19:50)
[2019-04-04] MEDS: methylPREDNISolone sod succ/PF 40mg inj. IV SCH ×2 (07:34→15:57)
[2019-04-04] MEDS: linezolid 600mg/300ml PREMIX 300 ML IV SCH ×2 (07:34→20:01)
[2019-04-04] MEDS: fluconazole-Diflucan 200mg/NS 100 ML IV SCH (07:34)
[2019-04-04] MEDS: furosemide 10 MG/1 ML 10ml inj IV SCH ×2 (07:34→15:58)
[2019-04-04] MEDS: heparin, porcine 5000 units/ml vial SQ SCH ×2 (07:35→19:50)
[2019-04-04] MEDS: methylnaltrexone br 12mg/0.6ml inj***SubQ only SQ SCH (07:35)
[2019-04-04] MEDS: K and/or MAG REPLACEMENT MC SCH ×2 (08:00→19:50)
[2019-04-04] MEDS: MORPHINE/PF 100 MG in NS 100ml IV IV SCH ×2 (10:21→19:59)
--- NOTE | 2019-04-04 11:16 | NUR ---
Positive blood culture from 04/02/19; Dr. Lino aware; orders to recheck blood cultures whenever the most recent blood culture becomes positive. So far, cultures negative from 04/03/19.
[2019-04-04] MEDS: DOBUTamine-DoBUTrex 500mg/D5W 250 ML IV SCH (14:37)
--- NOTE | 2019-04-04 15:00 | NUR ---
Patient taken off of Rotoprone and placed on standard Clover bed. Patient tolerated well. Arctic Sun also stopped as patient trends have shown patient's temperature more stable.
--- NOTE | 2019-04-04 18:10 | NUR ---
Patient in room CICU 2006. I have received report from Darwin PATEL, and had the opportunity to ask questions and assume patient care.
--- NOTE | 2019-04-04 18:11 | NUR ---
Problems reprioritized. Patient report given, questions answered & plan of care reviewed with Ana PATEL.
[2019-04-04] MEDS: insulin glargine (Lantus) pen - multi-dose SQ SCH (20:17)
[2019-04-05] VITALS (23 sets, daily range): BP systolic 104–149; BP diastolic 56–77
[2019-04-05] MEDS: methylPREDNISolone sod succ/PF 40mg inj. IV SCH ×2 (00:15→08:26)
[2019-04-05] MEDS: furosemide 10 MG/1 ML 10ml inj IV SCH ×3 (00:15→16:44)
[2019-04-05] MEDS: midazolam 100mg in NS 100ml 100 ML IV PRN ×3 (00:22→13:33)
[2019-04-05] MEDS: mineral oil/petrolatum ophthal oint EACHEYE SCH ×4 (02:27→21:30)
[2019-04-05] MEDS: insulin regular, human U-100 3ml vial - multi-dose SQ SCH ×4 (02:36→21:27)
[2019-04-05] MEDS: VANCOMYCIN LEVEL IV SCH (02:39)
[2019-04-05 03:19] LABS: ALANINE AMINOTRANSFERASE 33 U/L (12-78); ALBUMIN/GLOBULIN RATIO 0.8 (1.1-1.5); ALKALINE PHOSPHATASE 46 IU/L (46-116); ANION GAP 9 (8-16); ASPARTATE AMINO TRANSFERASE 16 U/L (10-37); BILIRUBIN,TOTAL 0.5 MG/DL (0.1-1.0); CALCIUM 8.9 MG/DL (8.5-10.1); CHLORIDE 112 MMOL/L (99-107); CREATININE 1.39 MG/DL (0.40-0.90); GLUCOSE 137 MG/DL (70-104); POTASSIUM 5.9 MMOL/L (3.5-5.1); SODIUM 154 MMOL/L (135-145); TOTAL CARBON DIOXIDE 32.6 MMOL/L (24-32); TOTAL PROTEIN 6.9 G/DL (6.4-8.2); eGFR 40 ML/MIN
[2019-04-05 03:21] LABS: BLOOD UREA NITROGEN 167 MG/DL (7-18); BUN/CREATININE RATIO 120.1 (6.6-38.0)
[2019-04-05 03:23] LABS: BASOPHILS # (AUTO) 0.1 X10'3 (0-0.2); BASOPHILS % (AUTO) 0.4 % (0-1); EOSINOPHILS % (AUTO) 0.1 % (0-6); HEMATOCRIT 27.9 % (35.0-45.0); HEMOGLOBIN 8.3 g/dl (12.0-16.0); LYMPHOCYTES # (AUTO) 0.2 X10'3 (1.1-4.8); LYMPHOCYTES % (AUTO) 1.3 % (21-51); MEAN CORPUSCULAR HEMOGLOBIN 20.7 PG (27.0-31.0); MEAN CORPUSCULAR HGB CONC 29.6 g/dL (33.0-36.5); MEAN CORPUSCULAR VOLUME 69.8 FL (78-98); MEAN PLATELET VOLUME 10.7 FL (7.4-10.4); MONOCYTES # (AUTO) 0.5 X10'3 (0-0.9); MONOCYTES % (AUTO) 3.4 % (2-12); NEUTROPHILS # (AUTO) 13.7 X10'3 (1.8-7.7); NEUTROPHILS % (AUTO) 94.8 % (42-75); PLATELET COUNT 253 X10'3 (140-440); RED BLOOD COUNT 3.99 X10'6 (4.20-5.60); RED CELL DISTRIBUTION WIDTH 20.6 % (11.5-14.5); WHITE BLOOD COUNT 14.4 X10'3 (4.5-11.0)
[2019-04-05 03:32] LABS: PHOSPHORUS 5.7 MG/DL (2.3-4.5)
[2019-04-05] MEDS: ipratropium/albuterol 3ml nebule NEB SCH ×6 (03:51→23:00)
--- NOTE | 2019-04-05 04:00 | NUR ---
Informed SLIDE ATTENDANT Chasity of PT's potassium of 5.9. Order received to draw BMP after next dose of Lasix. Will continue to monitor
[2019-04-05 04:46] LABS: ABG BASE EXCESS 2.1 mmol/L (-2.0-3.0); ABG HCO3 29.2 mmol/L (22.0-26.0); ABG OXYGEN SATURATION 97.6 % (95-98); ALLEN'S TEST POSITIVE; FCOHb 0.3 % (0.5-1.5); FMetHb 0.3 % (0.3-1.12); PATIENT TEMPERATURE 37.5; RESPIRATORY RATE 16 b/min; TIDAL VOLUME 475 mL; TOTAL HEMOGLOBIN 9.4 G/dl (12.0-16.0)
[2019-04-05] MEDS: MORPHINE/PF 100 MG in NS 100ml IV IV SCH ×2 (05:41→16:45)
[2019-04-05] MEDS: DOBUTamine-DoBUTrex 500mg/D5W 250 ML IV SCH ×2 (05:41→19:12)
--- NOTE | 2019-04-05 06:42 | NUR ---
Problems reprioritized. Patient report given, questions answered & plan of care reviewed with Art RN.
[2019-04-05] MEDS: K and/or MAG REPLACEMENT MC SCH ×2 (08:00→20:00)
[2019-04-05] MEDS: lactobacillus rhamnosus 10,000 MMU CELLS/CAPSULE PO SCH ×2 (08:25→21:30)
[2019-04-05] MEDS: docusate sodium 100mg/10ml UD cup OGT SCH ×2 (08:25→21:31)
[2019-04-05] MEDS: NYSTATIN CREAM - 30GM TUBE TP SCH ×2 (08:25→21:30)
[2019-04-05] MEDS: heparin, porcine 5000 units/ml vial SQ SCH ×2 (08:26→21:30)
[2019-04-05] MEDS: pantoprazole 40 MG vial IV SCH (08:26)
[2019-04-05] MEDS: linezolid 600mg/300ml PREMIX 300 ML IV SCH ×2 (08:27→21:31)
[2019-04-05] MEDS: fluconazole-Diflucan 200mg/NS 100 ML IV SCH (08:49)
--- NOTE | 2019-04-05 09:40 | NUR ---
Peep turned down to [address] Iverson
--- NOTE | 2019-04-05 11:04 | NUR ---
Called and spoke with Guillermo pt's son. I let them know that Dr. Iverson would like a family meeting tomorrow am at 1000
--- NOTE | 2019-04-05 12:03 | NUR ---
TF consult: MD requesting TF formula change to a renal formula. Pt with elevated electrolytes: Na 154, K 5.9, Phos 5.7, Mag 3.0. See below for TF recommendations. Pt has been taken off of rotoprone, no longer receiving Propofol. Wt continues to fluctuate, currently -1.9 kg since admit however -16 kg since yesterday. Wt change likely r/t fluid with negative fluid balance and d/t change in bed. LB 04/04, pt documented with 100 mL stool output per I&O. Will continue to follow closely. Recommendations: 1. Per MD request to provide 100g protein/day with renal formula; Continuous TF using Nepro at goal of 55 mL/hr providing 1320 mL total volume/day, 2376 kcal, 107 g protein, and 960 mL free water. 2. additional water flush 150 ml q 4 hours per MD 3. Prealbumin q Sunday and ; daily wts 4. Routine bowel care; opioid antagonist per MD 5. Once electrolytes normalize and okay to provide additional protein, pt would benefit from formula change to Vital High Protein with goal rate of 90 mL/hr to provide: 2160 mL total volume/day, 2160 kcal, 189 g protein, and 1806 mL water Addendum: 04/05/19 at [address] Amended: Links added.
[2019-04-05 12:06] LABS: ANION GAP 4 (8-16); CHLORIDE 114 MMOL/L (99-107); CREATININE 1.39 MG/DL (0.40-0.90); GLUCOSE 198 MG/DL (70-104); POTASSIUM 5.6 MMOL/L (3.5-5.1); SODIUM 150 MMOL/L (135-145); TOTAL CARBON DIOXIDE 31.8 MMOL/L (24-32); TRIGLYCERIDES 210 MG/DL (20-135); eGFR 40 ML/MIN
[2019-04-05 12:08] LABS: BLOOD UREA NITROGEN 160 MG/DL (7-18); BUN/CREATININE RATIO 115.1 (6.6-38.0)
[2019-04-05] MEDS: hydrocortisone sod succ/PF 100mg/2ml inj. IV SCH (16:47)
[2019-04-05] MEDS: insulin glargine (Lantus) pen - multi-dose SQ SCH (21:30)
[2019-04-06] VITALS (24 sets, daily range): BP systolic 105–136; BP diastolic 57–80
[2019-04-06] MEDS: hydrocortisone sod succ/PF 100mg/2ml inj. IV SCH ×3 (00:27→16:50)
[2019-04-06] MEDS: furosemide 10 MG/1 ML 10ml inj IV SCH ×3 (00:27→16:50)
[2019-04-06] MEDS: mineral oil/petrolatum ophthal oint EACHEYE SCH ×4 (02:17→20:46)
[2019-04-06] MEDS: insulin regular, human U-100 3ml vial - multi-dose SQ SCH ×4 (02:24→21:01)
[2019-04-06] MEDS: MORPHINE/PF 100 MG in NS 100ml IV IV SCH ×2 (02:25→13:00)
[2019-04-06] MEDS: midazolam 100mg in NS 100ml 100 ML IV PRN ×2 (02:26→09:28)
[2019-04-06] MEDS: VANCOMYCIN LEVEL IV SCH (02:26)
[2019-04-06 02:35] LABS: BASOPHILS % (AUTO) 0.3 % (0-1); EOSINOPHILS # (AUTO) 0.1 X10'3 (0-0.9); EOSINOPHILS % (AUTO) 0.7 % (0-6); HEMATOCRIT 28.9 % (35.0-45.0); HEMOGLOBIN 8.7 g/dl (12.0-16.0); LYMPHOCYTES # (AUTO) 0.3 X10'3 (1.1-4.8); LYMPHOCYTES % (AUTO) 2.3 % (21-51); MEAN CORPUSCULAR HEMOGLOBIN 21.2 PG (27.0-31.0); MEAN CORPUSCULAR VOLUME 70.8 FL (78-98); MEAN PLATELET VOLUME 10.3 FL (7.4-10.4); MONOCYTES # (AUTO) 0.6 X10'3 (0-0.9); MONOCYTES % (AUTO) 4.2 % (2-12); NEUTROPHILS # (AUTO) 13.1 X10'3 (1.8-7.7); NEUTROPHILS % (AUTO) 92.5 % (42-75); PLATELET COUNT 265 X10'3 (140-440); RED BLOOD COUNT 4.08 X10'6 (4.20-5.60); WHITE BLOOD COUNT 14.1 X10'3 (4.5-11.0)
[2019-04-06 02:50] LABS: ALANINE AMINOTRANSFERASE 33 U/L (12-78); ALBUMIN/GLOBULIN RATIO 0.8 (1.1-1.5); ALKALINE PHOSPHATASE 48 IU/L (46-116); ANION GAP 8 (8-16); ASPARTATE AMINO TRANSFERASE 19 U/L (10-37); BILIRUBIN,TOTAL 0.4 MG/DL (0.1-1.0); BLOOD UREA NITROGEN 152 MG/DL (7-18); CALCIUM 9.2 MG/DL (8.5-10.1); CHLORIDE 115 MMOL/L (99-107); CREATININE 1.31 MG/DL (0.40-0.90); GLUCOSE 167 MG/DL (70-104); MAGNESIUM 2.9 MG/DL (1.5-2.4); POTASSIUM 5.2 MMOL/L (3.5-5.1); SODIUM 153 MMOL/L (135-145); TOTAL CARBON DIOXIDE 30.3 MMOL/L (24-32); TOTAL PROTEIN 6.9 G/DL (6.4-8.2); TRIGLYCERIDES 235 MG/DL (20-135); VANCOMYCIN,TROUGH 12.1 UG/ML (6.0-14.0); eGFR 43 ML/MIN
[2019-04-06] MEDS: ipratropium/albuterol 3ml nebule NEB SCH ×6 (02:54→23:49)
[2019-04-06] MEDS: vancomycin/NS 1 GM ADD-VANTAGE 250 ML IV PRN ×2 (03:26→09:40)
[2019-04-06 05:11] LABS: ABG BASE EXCESS 0.9 mmol/L (-2.0-3.0); ABG PCO2 (T) 51.4 mmHg (35.0-45.0); ABG PO2 (T) 76.2 mmHg (83-108); ALLEN'S TEST POSITIVE; FCOHb 0.6 % (0.5-1.5); FMetHb 0.3 % (0.3-1.12); FO2Hb 92.2 % (94-100); PATIENT TEMPERATURE 37.4; PEEP 10 cm H2O; RESPIRATORY RATE 16 b/min; TIDAL VOLUME 500 mL; TOTAL HEMOGLOBIN 9.2 G/dl (12.0-16.0)
[2019-04-06] MEDS: DOBUTamine-DoBUTrex 500mg/D5W 250 ML IV SCH ×2 (05:11→21:21)
--- NOTE | 2019-04-06 06:45 | NUR ---
report received from AMANDA Durham
[2019-04-06] MEDS: K and/or MAG REPLACEMENT MC SCH ×2 (08:00→20:00)
[2019-04-06] MEDS: NYSTATIN CREAM - 30GM TUBE TP SCH ×2 (08:00→20:47)
[2019-04-06] MEDS: methylnaltrexone br 12mg/0.6ml inj***SubQ only SQ SCH (08:00)
[2019-04-06] MEDS: docusate sodium 100mg/10ml UD cup OGT SCH ×2 (08:00→20:47)
[2019-04-06] MEDS: lactobacillus rhamnosus 10,000 MMU CELLS/CAPSULE PO SCH ×2 (08:42→20:47)
[2019-04-06] MEDS: pantoprazole 40 MG vial IV SCH (08:42)
[2019-04-06] MEDS: heparin, porcine 5000 units/ml vial SQ SCH ×2 (08:43→20:47)
[2019-04-06] MEDS: linezolid 600mg/300ml PREMIX 300 ML IV SCH ×2 (08:43→20:46)
[2019-04-06] MEDS: fluconazole-Diflucan 200mg/NS 100 ML IV SCH (08:43)
--- NOTE | 2019-04-06 18:30 | NUR ---
Patient in room CICU 2006. I have received report from Kate PATEL and had the opportunity to ask questions and assume patient care. Patient in bed, intubated and lightly sedated. Patient saturating at 90% on 45% FIO2 and on A/C PRVC mode. Patient not opening eyes to simulation or following commands. Will continue to monitor patient.
--- NOTE | 2019-04-06 18:33 | NUR ---
Report given to AMANDA Walker
[2019-04-06] MEDS: insulin glargine (Lantus) pen - multi-dose SQ SCH (21:03)
[2019-04-07] VITALS (24 sets, daily range): BP systolic 103–204; BP diastolic 58–100
[2019-04-07] MEDS: furosemide 10 MG/1 ML 10ml inj IV SCH ×4 (00:03→23:54)
[2019-04-07] MEDS: hydrocortisone sod succ/PF 100mg/2ml inj. IV SCH ×4 (00:03→23:55)
[2019-04-07] MEDS: MORPHINE/PF 100 MG in NS 100ml IV IV SCH ×3 (00:27→18:06)
[2019-04-07] MEDS: mineral oil/petrolatum ophthal oint EACHEYE SCH ×4 (02:09→20:40)
[2019-04-07] MEDS: insulin regular, human U-100 3ml vial - multi-dose SQ SCH ×4 (02:11→20:51)
[2019-04-07] MEDS: ipratropium/albuterol 3ml nebule NEB SCH ×6 (02:50→22:27)
[2019-04-07] MEDS: VANCOMYCIN LEVEL IV SCH (03:00)
[2019-04-07 03:02] LABS: ALANINE AMINOTRANSFERASE 43 U/L (12-78); ALBUMIN 2.9 G/DL (3.4-5.0); ALBUMIN/GLOBULIN RATIO 0.8 (1.1-1.5); ALKALINE PHOSPHATASE 47 IU/L (46-116); ANION GAP 9 (8-16); ASPARTATE AMINO TRANSFERASE 32 U/L (10-37); BILIRUBIN,TOTAL 0.4 MG/DL (0.1-1.0); BLOOD UREA NITROGEN 142 MG/DL (7-18); BUN/CREATININE RATIO 106.8 (6.6-38.0); CALCIUM 8.9 MG/DL (8.5-10.1); CHLORIDE 117 MMOL/L (99-107); CREATININE 1.33 MG/DL (0.40-0.90); GLUCOSE 130 MG/DL (70-104); MAGNESIUM 2.6 MG/DL (1.5-2.4); PHOSPHORUS 4.9 MG/DL (2.3-4.5); POTASSIUM 4.2 MMOL/L (3.5-5.1); TOTAL CARBON DIOXIDE 30.7 MMOL/L (24-32); TOTAL PROTEIN 6.6 G/DL (6.4-8.2); eGFR 42 ML/MIN
[2019-04-07 03:05] LABS: BASOPHILS # (AUTO) 0.1 X10'3 (0-0.2); EOSINOPHILS # (AUTO) 0.2 X10'3 (0-0.9); HEMOGLOBIN 8.6 g/dl (12.0-16.0); MONOCYTES # (AUTO) 0.7 X10'3 (0-0.9)
[2019-04-07 03:10] LABS: BASOPHILS % (AUTO) 0.3 % (0-1); HEMATOCRIT 29.1 % (35.0-45.0); LYMPHOCYTES # (AUTO) 0.3 X10'3 (1.1-4.8); LYMPHOCYTES % (AUTO) 1.6 % (21-51); MEAN CORPUSCULAR HEMOGLOBIN 20.9 PG (27.0-31.0); MEAN CORPUSCULAR HGB CONC 29.7 g/dL (33.0-36.5); MEAN CORPUSCULAR VOLUME 70.5 FL (78-98); MEAN PLATELET VOLUME 10.8 FL (7.4-10.4); MONOCYTES % (AUTO) 3.8 % (2-12); NEUTROPHILS # (AUTO) 16.8 X10'3 (1.8-7.7); NEUTROPHILS % (AUTO) 93.3 % (42-75); PLATELET COUNT 250 X10'3 (140-440); RED BLOOD COUNT 4.13 X10'6 (4.20-5.60); RED CELL DISTRIBUTION WIDTH 21.1 % (11.5-14.5); WHITE BLOOD COUNT 18.1 X10'3 (4.5-11.0)
[2019-04-07 03:17] LABS: SODIUM 157 MMOL/L (135-145)
[2019-04-07 03:18] LABS: VANCOMYCIN,TROUGH 26.7 UG/ML (6.0-14.0)
[2019-04-07 04:20] LABS: ABG BASE EXCESS -1.8 mmol/L (-2.0-3.0); ABG HCO3 23.7 mmol/L (22.0-26.0); ABG OXYGEN SATURATION 89.4 % (95-98); ABG PCO2 (T) 44.7 mmHg (35.0-45.0); ABG PH (T) 7.346 (7.350-7.450); ABG PO2 (T) 64.2 mmHg (83-108); ALLEN'S TEST POSITIVE; FCOHb 0.3 % (0.5-1.5); FO2Hb 89.1 % (94-100); PATIENT TEMPERATURE 37.5; PEEP 8 cm H2O; RESPIRATORY RATE 16 b/min; TIDAL VOLUME 500 mL; TOTAL HEMOGLOBIN 9.7 G/dl (12.0-16.0)
--- NOTE | 2019-04-07 06:26 | NUR ---
Problems reprioritized. Patient report given, questions answered & plan of care reviewed with Kate PATEL.
--- NOTE | 2019-04-07 06:26 | NUR ---
Patient in room CICU 2006. I have received report from AMANDA Walker and had the opportunity to ask questions and assume patient care.
[2019-04-07] MEDS: K and/or MAG REPLACEMENT MC SCH ×2 (08:00→20:00)
[2019-04-07] MEDS: docusate sodium 100mg/10ml UD cup OGT SCH ×2 (08:00→20:41)
[2019-04-07] MEDS: NYSTATIN CREAM - 30GM TUBE TP SCH ×2 (08:19→20:40)
[2019-04-07] MEDS: pantoprazole 40 MG vial IV SCH (08:20)
[2019-04-07] MEDS: heparin, porcine 5000 units/ml vial SQ SCH ×2 (08:20→20:41)
[2019-04-07] MEDS: lactobacillus rhamnosus 10,000 MMU CELLS/CAPSULE PO SCH (08:20)
[2019-04-07] MEDS: linezolid 600mg/300ml PREMIX 300 ML IV SCH ×2 (08:21→20:41)
[2019-04-07] MEDS: fluconazole-Diflucan 200mg/NS 100 ML IV SCH (08:21)
[2019-04-07] MEDS: midazolam 100mg in NS 100ml 100 ML IV PRN (08:21)
[2019-04-07] MEDS: DOCOSANOL 2 GM CREAM..G. TP SCH ×2 (14:00→20:41)
[2019-04-07] MEDS ORDERED: acyclovir 5% 15GM ointment TP SCH (14:00)
[2019-04-07] MEDS ORDERED: erythromycin base 250mg tablet PO SCH (14:00)
--- NOTE | 2019-04-07 16:22 | NUR ---
Tube feeding consult. Spoke with bedside RN and MD regarding patient's tube feedings and recommending using formula to meet her needs on the vent, MD is OK to change formula back to vital high protein. Potassium is WNL, Mag and phosphorus are slightly elevated. Noted sodium up to 157 and is receiving additional water flush of 200 ml q 4 hours per MD order. Wt continues to fluctuate, currently -1.9 kg since admit however -16 kg since yesterday. Wt change likely r/t fluid with negative fluid balance and d/t change in bed. LBM 04/04, pt documented with 100 mL stool output per I&O, however does continue with liquid output into rectal tube bag. Will continue to follow closely. Recommendations: 1. Continuous Vital High Protein starting at 55 ml per hour and advance as tolerated by 20 ml q 8 hours to goal rate of 90 mL/hr to provide: 2160 mL total volume/day, 2160 kcal, 189 g protein, and 1806 mL water 2. additional water flush 200 ml q 4 hours per MD 3. Prealbumin q Sunday and ; daily wts 4. Routine bowel care; may benefit from opioid antagonist per MD Addendum: 04/07/19 at [address] Amended: Links added.
[2019-04-07 16:31] LABS: OXYGEN SATURATION (MIXED VEN) 71.4 % (60-80); PO2 MIXED VENOUS (TEMP COR) 43.3 mmHg (35-46)
--- NOTE | 2019-04-07 18:21 | NUR ---
Problems reprioritized. Patient report given, questions answered & plan of care reviewed with AMANDA Walker.
--- NOTE | 2019-04-07 18:25 | NUR ---
Patient in room CICU 2006. I have received report from Kate PATEL and had the opportunity to ask questions and assume patient care. Patient intubated and lightly sedated. Saturation at 91% on 50% FIO2 with PRVC settings. Patient makes small movements to tactile stimulus, but does not follow commands or open eyes. Will continue to monitor patient.
[2019-04-07] MEDS: lactobacillus rhamnosus 10,000 MMU CELLS/CAPSULE OGT SCH (20:41)
[2019-04-07] MEDS: insulin glargine (Lantus) pen - multi-dose SQ SCH (20:52)
[2019-04-07] MEDS: hydrALAZINE 20mg/ml inj. IV PRN (21:30)
[2019-04-07] MEDS ORDERED: metoprolol tartrate 1mg/ml inj IV ONE ×2 (22:20→23:40)
--- NOTE | 2019-04-07 22:30 | NUR ---
Patient suddenly hypertensive with SBP in 190s-200s. Hydralazine given with no effect. Notified Carlos hinkle NP, new orders received.
--- NOTE | 2019-04-07 23:30 | NUR ---
Patient continues to be hypertensive, BP currently with SBP in 180s. Informed Chasity NAUTICAL INSTRUMENT MECHANIC that patient's pupils are very dilated unequeal with L pupil at 6 and right pupil at 4. New order received for head CT in AM and one time dose metoprolol.
[2019-04-07] MEDS ORDERED: hydrALAZINE 20mg/ml inj. IV PRN (23:40)
[2019-04-08] VITALS (24 sets, daily range): BP systolic 85–183; BP diastolic 51–107
[2019-04-08] MEDS: DOCOSANOL 2 GM CREAM..G. TP SCH ×4 (02:39→20:40)
[2019-04-08] MEDS: mineral oil/petrolatum ophthal oint EACHEYE SCH ×4 (02:39→20:54)
[2019-04-08] MEDS: insulin regular, human U-100 3ml vial - multi-dose SQ SCH ×3 (02:42→21:02)
[2019-04-08] MEDS: VANCOMYCIN LEVEL IV SCH (03:00)
[2019-04-08] MEDS: ipratropium/albuterol 3ml nebule NEB SCH ×6 (03:22→22:48)
[2019-04-08] MEDS: MORPHINE/PF 100 MG in NS 100ml IV IV SCH ×3 (03:26→23:28)
[2019-04-08 04:23] LABS: ALANINE AMINOTRANSFERASE 59 U/L (12-78); ALBUMIN 3.1 G/DL (3.4-5.0); ALBUMIN/GLOBULIN RATIO 0.8 (1.1-1.5); ALKALINE PHOSPHATASE 54 IU/L (46-116); ANION GAP 9 (8-16); ASPARTATE AMINO TRANSFERASE 40 U/L (10-37); BILIRUBIN,TOTAL 0.4 MG/DL (0.1-1.0); BLOOD UREA NITROGEN 129 MG/DL (7-18); BUN/CREATININE RATIO 116.2 (6.6-38.0); CALCIUM 9.2 MG/DL (8.5-10.1); CHLORIDE 115 MMOL/L (99-107); CREATININE 1.11 MG/DL (0.40-0.90); GLUCOSE 146 MG/DL (70-104); MAGNESIUM 2.4 MG/DL (1.5-2.4); PHOSPHORUS 4.5 MG/DL (2.3-4.5); POTASSIUM 3.7 MMOL/L (3.5-5.1); TOTAL CARBON DIOXIDE 32.1 MMOL/L (24-32); TOTAL PROTEIN 7.2 G/DL (6.4-8.2); TRIGLYCERIDES 255 MG/DL (20-135); VANCOMYCIN,TROUGH 15.4 UG/ML (6.0-14.0); eGFR 52 ML/MIN
[2019-04-08 04:25] LABS: BASOPHILS # (AUTO) 0.4 X10'3 (0-0.2); BASOPHILS % (AUTO) 1.6 % (0-1); EOSINOPHILS # (AUTO) 0.3 X10'3 (0-0.9); EOSINOPHILS % (AUTO) 1.2 % (0-6); HEMATOCRIT 34.4 % (35.0-45.0); HEMOGLOBIN 10.2 g/dl (12.0-16.0); LYMPHOCYTES # (AUTO) 1.4 X10'3 (1.1-4.8); LYMPHOCYTES % (AUTO) 5.5 % (21-51); MEAN CORPUSCULAR HEMOGLOBIN 21.2 PG (27.0-31.0); MEAN CORPUSCULAR HGB CONC 29.8 g/dL (33.0-36.5); MEAN CORPUSCULAR VOLUME 71.1 FL (78-98); MEAN PLATELET VOLUME 10.8 FL (7.4-10.4); MONOCYTES # (AUTO) 0.5 X10'3 (0-0.9); MONOCYTES % (AUTO) 2.1 % (2-12); NEUTROPHILS # (AUTO) 22.9 X10'3 (1.8-7.7); NEUTROPHILS % (AUTO) 89.6 % (42-75); PLATELET COUNT 232 X10'3 (140-440); RED BLOOD COUNT 4.84 X10'6 (4.20-5.60); RED CELL DISTRIBUTION WIDTH 21.1 % (11.5-14.5)
[2019-04-08 04:26] LABS: ABG BASE EXCESS 2.5 mmol/L (-2.0-3.0); ABG HCO3 26.9 mmol/L (22.0-26.0); ABG OXYGEN SATURATION 92.2 % (95-98); ABG PCO2 (T) 41.5 mmHg (35.0-45.0); ABG PH (T) 7.431 (7.350-7.450); ABG PO2 (T) 66.1 mmHg (83-108); ALLEN'S TEST POSITIVE; FCOHb 0.3 % (0.5-1.5); FO2Hb 91.9 % (94-100); PATIENT TEMPERATURE 37.3; PEEP 8 cm H2O; RESPIRATORY RATE 16 b/min; TIDAL VOLUME 500 mL; TOTAL HEMOGLOBIN 11.3 G/dl (12.0-16.0)
[2019-04-08 04:28] LABS: WHITE BLOOD COUNT 25.5 X10'3 (4.5-11.0)
[2019-04-08 04:48] LABS: SODIUM 156 MMOL/L (135-145)
[2019-04-08] MEDS ORDERED: metoprolol tartrate 1mg/ml inj IV ONE ×2 (04:55→22:40)
--- NOTE | 2019-04-08 04:57 | NUR ---
Patient once again hypertensive with HR now sinus tachycardia in 130s. Notified Carlos Gaspar NP. Ordered one more dose IV metoprolol push, states to have daytime cold roll packer sheet iron address possible need for maintenance meds for hypertension and tachycardia.
[2019-04-08 05:02] LABS: PREALBUMIN 53.8 MG/DL (19-36)
[2019-04-08 05:08] LABS: ANISOCYTOSIS 3+; MICROCYTOSIS 1+; NUCLEATED RED BLOOD CELLS 1 /100WBC (0-0); PLATELET ESTIMATE NORMAL; TOTAL CELLS COUNTED 100
[2019-04-08 05:09] LABS: HYPOCHROMASIA 2+; TARGET CELLS FEW
[2019-04-08 05:10] LABS: ELLIPTOCYTES 1+; LARGE PLATELETS MODERATE
--- NOTE | 2019-04-08 06:30 | NUR ---
Patient in room CICU 2006. I have received report from Denise PATEL and had the opportunity to ask questions and assume patient care. Patient laying in bed with eyes closed, on ventilator sating 94 % fio2 50% peep of 8, [place] and rectal tube to gravity. Vital signs stable will continue to monitor
--- NOTE | 2019-04-08 06:34 | NUR ---
Problems reprioritized. Patient report given, questions answered & plan of care reviewed with Aditi PATEL.
[2019-04-08] MEDS: methylnaltrexone br 12mg/0.6ml inj***SubQ only SQ SCH (08:00)
[2019-04-08] MEDS: lactobacillus rhamnosus 10,000 MMU CELLS/CAPSULE OGT SCH ×2 (08:00→20:53)
[2019-04-08] MEDS: linezolid 600mg/300ml PREMIX 300 ML IV SCH ×2 (08:00→20:53)
[2019-04-08] MEDS: NYSTATIN CREAM - 30GM TUBE TP SCH ×2 (08:00→20:53)
[2019-04-08] MEDS: heparin, porcine 5000 units/ml vial SQ SCH ×2 (08:00→20:55)
[2019-04-08] MEDS: hydrocortisone sod succ/PF 100mg/2ml inj. IV SCH ×2 (08:00→17:46)
[2019-04-08] MEDS: furosemide 10 MG/1 ML 10ml inj IV SCH (08:00)
[2019-04-08] MEDS: K and/or MAG REPLACEMENT MC SCH ×2 (08:00→20:00)
[2019-04-08] MEDS: pantoprazole 40 MG vial IV SCH (08:00)
[2019-04-08] MEDS: docusate sodium 100mg/10ml UD cup OGT SCH ×2 (08:00→20:53)
[2019-04-08] MEDS ORDERED: furosemide 10 MG/1 ML 10ml inj IV SCH (10:35)
--- NOTE | 2019-04-08 13:15 | NUR ---
Reassessment. Pt intubated and sedated. Tube feeding with Vital High Protein almost at goal per bedside RN report during rounds. Gastric residuals are under 10 ml. Continues to have small stool output out rectal tube. Sodium down from 157 to 156 today. Recommend to continue current nutrition plan. Potassium, magnesium, and phosphorus are all within normal limits. Wt continues to fluctuate, currently -1.9 kg since admit however -16 kg since yesterday. Wt change likely r/t fluid with negative fluid balance and d/t change in bed. Will continue to follow closely. Recommendations: 1. Continuous Vital High Protein starting at 55 ml per hour and advance as tolerated by 20 ml q 8 hours to goal rate of 90 mL/hr to provide: 2160 mL total volume/day, 2160 kcal, 189 g protein, and 1806 mL water 2. additional water flush 200 ml q 4 hours per MD 3. Prealbumin q Sunday and ; daily wts 4. Routine bowel care; may benefit from opioid antagonist per MD Addendum: 04/08/19 at [address] Amended: Links added.
--- NOTE | 2019-04-08 18:23 | NUR ---
Problems reprioritized. Patient report given, questions answered & plan of care reviewed with Denise Mendoza.
--- NOTE | 2019-04-08 18:31 | NUR ---
Patient in room CICU 2006. I have received report from Aditi PATEL and had the opportunity to ask questions and assume patient care. Patient intubated with no sedation infusing. Patient saturating at 94% on 45% FIO2 with ventilator on PRVC setting. Patient overbreathing vent at 18 breaths/min, opens eyes spontaneously but without any purposeful movement. Does not move extremities or follow commands. Will continue to monitor patient closely.
[2019-04-08] MEDS: valacyclovir 500mg tablet PO SCH (20:53)
[2019-04-08] MEDS: insulin glargine (Lantus) pen - multi-dose SQ SCH (21:03)
[2019-04-08] MEDS: carvedilol 6.25mg tablet PO SCH (22:46)
[2019-04-09] VITALS (24 sets, daily range): BP systolic 90–161; BP diastolic 51–95
[2019-04-09] MEDS: hydrocortisone sod succ/PF 100mg/2ml inj. IV SCH ×3 (00:56→15:51)
[2019-04-09] MEDS: DOCOSANOL 2 GM CREAM..G. TP SCH ×4 (01:47→19:55)
[2019-04-09] MEDS: mineral oil/petrolatum ophthal oint EACHEYE SCH ×4 (01:47→19:54)
[2019-04-09] MEDS: insulin regular, human U-100 3ml vial - multi-dose SQ SCH ×4 (01:54→20:22)
[2019-04-09 02:27] LABS: MAGNESIUM 2.3 MG/DL (1.5-2.4); TRIGLYCERIDES 230 MG/DL (20-135); VANCOMYCIN,TROUGH 8.6 UG/ML (6.0-14.0)
[2019-04-09 02:59] LABS: BASOPHILS # (AUTO) 0.1 X10'3 (0-0.2); BASOPHILS % (AUTO) 0.5 % (0-1); EOSINOPHILS # (AUTO) 0.7 X10'3 (0-0.9); EOSINOPHILS % (AUTO) 3.6 % (0-6); HEMATOCRIT 32.6 % (35.0-45.0); HEMOGLOBIN 9.6 g/dl (12.0-16.0); LYMPHOCYTES # (AUTO) 1.5 X10'3 (1.1-4.8); LYMPHOCYTES % (AUTO) 7.1 % (21-51); MEAN CORPUSCULAR HGB CONC 29.3 g/dL (33.0-36.5); MEAN CORPUSCULAR VOLUME 71.7 FL (78-98); MEAN PLATELET VOLUME 10.8 FL (7.4-10.4); MONOCYTES # (AUTO) 0.6 X10'3 (0-0.9); MONOCYTES % (AUTO) 2.8 % (2-12); NEUTROPHILS # (AUTO) 17.5 X10'3 (1.8-7.7); PLATELET COUNT 232 X10'3 (140-440); RED BLOOD COUNT 4.55 X10'6 (4.20-5.60); RED CELL DISTRIBUTION WIDTH 21.5 % (11.5-14.5); WHITE BLOOD COUNT 20.4 X10'3 (4.5-11.0)
[2019-04-09] MEDS: VANCOMYCIN LEVEL IV SCH (03:00)
[2019-04-09 03:31] LABS: ALANINE AMINOTRANSFERASE 54 U/L (12-78); ALBUMIN 2.6 G/DL (3.4-5.0); ALBUMIN/GLOBULIN RATIO 0.7 (1.1-1.5); ALKALINE PHOSPHATASE 51 IU/L (46-116); ANION GAP 12 (8-16); ASPARTATE AMINO TRANSFERASE 45 U/L (10-37); BILIRUBIN,TOTAL 0.5 MG/DL (0.1-1.0); BLOOD UREA NITROGEN 120 MG/DL (7-18); BUN/CREATININE RATIO 111.1 (6.6-38.0); CALCIUM 8.9 MG/DL (8.5-10.1); CHLORIDE 115 MMOL/L (99-107); CREATININE 1.08 MG/DL (0.40-0.90); GLUCOSE 163 MG/DL (70-104); POTASSIUM 3.8 MMOL/L (3.5-5.1); TOTAL CARBON DIOXIDE 28.7 MMOL/L (24-32); TOTAL PROTEIN 6.4 G/DL (6.4-8.2); eGFR 53 ML/MIN
[2019-04-09] MEDS: ipratropium/albuterol 3ml nebule NEB SCH ×6 (03:37→23:07)
[2019-04-09 03:44] LABS: SODIUM 156 MMOL/L (135-145)
[2019-04-09 04:03] LABS: ANISOCYTOSIS 3+; MICROCYTOSIS 2+; PLATELET ESTIMATE NORMAL; TARGET CELLS 1+
[2019-04-09 04:04] LABS: LARGE PLATELETS MODERATE
[2019-04-09 04:41] LABS: ABG BASE EXCESS 3.7 mmol/L (-2.0-3.0); ABG HCO3 28.8 mmol/L (22.0-26.0); ABG OXYGEN SATURATION 94.3 % (95-98); ABG PCO2 (T) 47.6 mmHg (35.0-45.0); ABG PH (T) 7.403 (7.350-7.450); ABG PO2 (T) 81.3 mmHg (83-108); ALLEN'S TEST POSITIVE; FCOHb 0.3 % (0.5-1.5); FMetHb 0.1 % (0.3-1.12); FO2Hb 93.9 % (94-100); PATIENT TEMPERATURE 37.7; PEEP 8 cm H2O; RESPIRATORY RATE 16 b/min; TIDAL VOLUME 500 mL; TOTAL HEMOGLOBIN 10.6 G/dl (12.0-16.0)
--- NOTE | 2019-04-09 06:30 | NUR ---
Patient in room CICU 2006. I have received report from Denise PATEL and had the opportunity to ask questions and assume patient care.
--- NOTE | 2019-04-09 06:41 | NUR ---
Problems reprioritized. Patient report given, questions answered & plan of care reviewed with Noemi PATEL.
[2019-04-09] MEDS ORDERED: vancomycin/NS 1 GM ADD-VANTAGE 250 ML IV ONE ×2 (07:30)
[2019-04-09] MEDS: linezolid 600mg/300ml PREMIX 300 ML IV SCH ×2 (07:44→19:54)
[2019-04-09] MEDS: pantoprazole 40 MG vial IV SCH (07:45)
[2019-04-09] MEDS: valacyclovir 500mg tablet PO SCH (07:45)
[2019-04-09] MEDS: docusate sodium 100mg/10ml UD cup OGT SCH ×2 (07:45→19:54)
[2019-04-09] MEDS: lactobacillus rhamnosus 10,000 MMU CELLS/CAPSULE OGT SCH ×2 (07:45→19:54)
[2019-04-09] MEDS: carvedilol 6.25mg tablet PO SCH ×2 (07:45→09:36)
[2019-04-09] MEDS: NYSTATIN CREAM - 30GM TUBE TP SCH ×2 (07:46→19:55)
[2019-04-09] MEDS: heparin, porcine 5000 units/ml vial SQ SCH ×2 (07:48→19:54)
[2019-04-09] MEDS ORDERED: normal saline 500ml IV soln 1,000 ML IV ONE (07:55)
[2019-04-09] MEDS: K and/or MAG REPLACEMENT MC SCH ×2 (08:00→19:55)
[2019-04-09] MEDS ORDERED: normal saline 1000ml 1,000 ML IV ONE (10:05)
[2019-04-09] MEDS: MORPHINE/PF 100 MG in NS 100ml IV IV SCH ×2 (11:22→23:52)
--- NOTE | 2019-04-09 15:00 | NUR ---
Patient's son, Sadi, here requesting to change patient's code status to full code. States he talked with Dr. Shah about his concerns. According to report this morning patient's son Sadi was no longer spokesperson due to phone call he made but dialysis social worker has not been told this and states that according to the last talk with family that Sadi would be spokes person. Una, dialysis social worker, says she will call family and try to figure out the plan for patient per the 4 main children. Will continue to monitor.
--- NOTE | 2019-04-09 15:30 | NUR ---
Received returned call from Una who spoke with Oleg who is the spokesperson now per the notes in front of patient room. He states the patient will remain a limited code. Una states that if there are more concerns about changing code status there must be a family meeting.
--- NOTE | 2019-04-09 18:35 | NUR ---
Problems reprioritized. Patient report given, questions answered & plan of care reviewed with Ana PATEL.
--- NOTE | 2019-04-09 18:40 | NUR ---
Patient in room CICU 2006. I have received report from Noemi PATEL, and had the opportunity to ask questions and assume patient care.
[2019-04-09] MEDS: insulin glargine (Lantus) pen - multi-dose SQ SCH (20:23)
[2019-04-10] VITALS (24 sets, daily range): BP systolic 93–175; BP diastolic 7–105
[2019-04-10] MEDS: hydrocortisone sod succ/PF 100mg/2ml inj. IV SCH ×2 (00:18→07:51)
[2019-04-10] MEDS: LORazepam 2 mg/ml vial IV PRN (00:18)
--- NOTE | 2019-04-10 00:18 | NUR ---
1mg PRN Ativan given for agitation. PT laying in bed with eyes open, HR in high 130's, RR 22. Morphine is running and is the only sedation being administered currently, Versed has been off for 3 days. Will continue to monitor.
--- NOTE | 2019-04-10 02:00 | NUR ---
HR improved to 110's. PT resting with no s.s of distress noted at this time. Will continue to monitor.
[2019-04-10] MEDS: DOCOSANOL 2 GM CREAM..G. TP SCH ×4 (02:45→20:34)
[2019-04-10] MEDS: mineral oil/petrolatum ophthal oint EACHEYE SCH ×4 (02:45→20:35)
[2019-04-10] MEDS: insulin regular, human U-100 3ml vial - multi-dose SQ SCH ×4 (02:48→20:45)
[2019-04-10] MEDS: VANCOMYCIN LEVEL IV SCH (02:49)
[2019-04-10 02:53] LABS: HEMOGLOBIN 8.8 g/dl (12.0-16.0); RED CELL DISTRIBUTION WIDTH 21.5 % (11.5-14.5); WHITE BLOOD COUNT 14.9 X10'3 (4.5-11.0)
[2019-04-10 02:55] LABS: BASOPHILS # (AUTO) 0.1 X10'3 (0-0.2); BASOPHILS % (AUTO) 0.6 % (0-1); EOSINOPHILS # (AUTO) 0.3 X10'3 (0-0.9); EOSINOPHILS % (AUTO) 1.8 % (0-6); HEMATOCRIT 28.4 % (35.0-45.0); LYMPHOCYTES # (AUTO) 0.3 X10'3 (1.1-4.8); LYMPHOCYTES % (AUTO) 1.9 % (21-51); MEAN CORPUSCULAR HEMOGLOBIN 22.4 PG (27.0-31.0); MEAN CORPUSCULAR HGB CONC 30.9 g/dL (33.0-36.5); MEAN CORPUSCULAR VOLUME 72.2 FL (78-98); MEAN PLATELET VOLUME 9.8 FL (7.4-10.4); MONOCYTES # (AUTO) 0.6 X10'3 (0-0.9); MONOCYTES % (AUTO) 3.9 % (2-12); NEUTROPHILS # (AUTO) 13.7 X10'3 (1.8-7.7); NEUTROPHILS % (AUTO) 91.8 % (42-75); PLATELET COUNT 190 X10'3 (140-440); RED BLOOD COUNT 3.94 X10'6 (4.20-5.60)
[2019-04-10] MEDS: ipratropium/albuterol 3ml nebule NEB SCH ×6 (02:59→23:25)
[2019-04-10 03:05] LABS: ALANINE AMINOTRANSFERASE 52 U/L (12-78); ALBUMIN 2.3 G/DL (3.4-5.0); ALBUMIN/GLOBULIN RATIO 0.6 (1.1-1.5); ALKALINE PHOSPHATASE 48 IU/L (46-116); ANION GAP 8 (8-16); ASPARTATE AMINO TRANSFERASE 38 U/L (10-37); BILIRUBIN,TOTAL 0.4 MG/DL (0.1-1.0); BLOOD UREA NITROGEN 104 MG/DL (7-18); BUN/CREATININE RATIO 114.3 (6.6-38.0); CALCIUM 8.3 MG/DL (8.5-10.1); CREATININE 0.91 MG/DL (0.40-0.90); GLUCOSE 127 MG/DL (70-104); MAGNESIUM 2.1 MG/DL (1.5-2.4); PHOSPHORUS 3.5 MG/DL (2.3-4.5); POTASSIUM 3.3 MMOL/L (3.5-5.1); PREALBUMIN 33.9 MG/DL (19-36); TOTAL CARBON DIOXIDE 30.7 MMOL/L (24-32); TOTAL PROTEIN 5.9 G/DL (6.4-8.2); VANCOMYCIN,TROUGH 13.2 UG/ML (6.0-14.0); eGFR 65 ML/MIN
[2019-04-10 03:07] LABS: SODIUM 158 MMOL/L (135-145)
[2019-04-10 03:08] LABS: CHLORIDE 119 MMOL/L (99-107)
[2019-04-10 03:16] LABS: ABG BASE EXCESS 2.2 mmol/L (-2.0-3.0); ABG HCO3 27.4 mmol/L (22.0-26.0); ABG OXYGEN SATURATION 93.7 % (95-98); ABG PCO2 (T) 46.6 mmHg (35.0-45.0); ABG PO2 (T) 77.1 mmHg (83-108); ALLEN'S TEST POSITIVE; FCOHb 0.3 % (0.5-1.5); FMetHb 0.1 % (0.3-1.12); FO2Hb 93.3 % (94-100); PATIENT TEMPERATURE 37.5; PEEP 5 cm H2O; RESPIRATORY RATE 16 b/min; TIDAL VOLUME 500 mL; TOTAL HEMOGLOBIN 9.7 G/dl (12.0-16.0)
[2019-04-10 03:29] LABS: TOTAL CELLS COUNTED 100
[2019-04-10 03:30] LABS: ANISOCYTOSIS 3+; HYPOCHROMASIA 1+; MICROCYTOSIS 2+; PLATELET ESTIMATE NORMAL
[2019-04-10] MEDS ORDERED: magnesium 2GM in 50ml NS 50 ML IV PRN (04:25)
[2019-04-10] MEDS ORDERED: potassium Cl 20 mEq SR tablet PO PRN ×2 (04:25)
[2019-04-10] MEDS ORDERED: magnesium 4gm in 100ml NS 100 ML IV PRN (04:25)
[2019-04-10] MEDS ORDERED: magnesium Cl slow-release 64mg tablet PO PRN (04:25)
[2019-04-10] MEDS: potassium Cl 20mEq/100mL bag 100 ML IV PRN ×2 (04:52→05:55)
--- NOTE | 2019-04-10 06:40 | NUR ---
Problems reprioritized. Patient report given, questions answered & plan of care reviewed with Rudy PATEL.
[2019-04-10] MEDS: linezolid 600mg/300ml PREMIX 300 ML IV SCH ×2 (07:44→20:33)
[2019-04-10] MEDS: methylnaltrexone br 12mg/0.6ml inj***SubQ only SQ SCH (07:44)
[2019-04-10] MEDS: pantoprazole 40 MG vial IV SCH (07:52)
[2019-04-10] MEDS: heparin, porcine 5000 units/ml vial SQ SCH ×2 (07:56→20:34)
[2019-04-10] MEDS: lactobacillus rhamnosus 10,000 MMU CELLS/CAPSULE OGT SCH ×2 (07:58→20:34)
[2019-04-10] MEDS: docusate sodium 100mg/10ml UD cup OGT SCH ×2 (07:58→20:33)
[2019-04-10] MEDS: NYSTATIN CREAM - 30GM TUBE TP SCH ×2 (07:59→20:35)
[2019-04-10] MEDS: K and/or MAG REPLACEMENT MC SCH ×2 (08:00→20:00)
--- NOTE | 2019-04-10 10:37 | NUR ---
notified of abnormal vital signs labs. orders received, and clarified that i will notify him if HR goes above 140 or SBP above 170 will continue to monitor
--- NOTE | 2019-04-10 10:43 | NUR ---
F/u: Pt Na 158 today to increase water flushes to 250ml Q4 and to start dextrose today per MD. Recommendations: 1. Continuous Vital High Protein starting at 55 ml per hour and advance as tolerated by 20 ml q 8 hours to goal rate of 90 mL/hr to provide: 2160 mL total volume/day, 2160 kcal, 189 g protein, and 1806 mL water 2. additional water flush 250ml q 4 hours per MD 3. Prealbumin q Sunday and ; daily wts 4. Routine bowel care Addendum: 04/10/19 at [address] Amended: Links added.
[2019-04-10] MEDS: carvedilol 6.25mg tablet PO SCH ×2 (10:48→20:34)
[2019-04-10] MEDS: dextrose 5%-water 1,000 ML IV SCH (10:49)
--- NOTE | 2019-04-10 14:21 | NUR ---
Called pharmacy to clarify dose of vanco. Pharmacist states that although the order is written to administer if trough less then 15, Dr Shah usually likes it to be given if the trough is less then 12, and he asked me to check with the MD. Spoke with Dr Shah who states to follow the orders. Pharmacy notified.
[2019-04-10] MEDS ORDERED: vancomycin/NS 1 GM ADD-VANTAGE 250 ML IV ONE (14:25)
--- NOTE | 2019-04-10 18:40 | NUR ---
Patient in room CICU 2006. I have received report from Rudy PATEL, and had the opportunity to ask questions and assume patient care.
[2019-04-10] MEDS: insulin glargine (Lantus) pen - multi-dose SQ SCH (20:46)
[2019-04-11] VITALS (24 sets, daily range): BP systolic 84–182; BP diastolic 49–111
[2019-04-11] MEDS: DOCOSANOL 2 GM CREAM..G. TP SCH ×4 (02:00→20:11)
[2019-04-11] MEDS: VANCOMYCIN LEVEL IV SCH (03:00)
[2019-04-11 03:04] LABS: BASOPHILS # (AUTO) 0.1 X10'3 (0-0.2); BASOPHILS % (AUTO) 0.5 % (0-1); EOSINOPHILS # (AUTO) 0.6 X10'3 (0-0.9); EOSINOPHILS % (AUTO) 4.9 % (0-6); HEMOGLOBIN 9.2 g/dl (12.0-16.0); LYMPHOCYTES # (AUTO) 1.4 X10'3 (1.1-4.8); LYMPHOCYTES % (AUTO) 11.1 % (21-51); MEAN CORPUSCULAR HEMOGLOBIN 22.3 PG (27.0-31.0); MEAN CORPUSCULAR HGB CONC 30.5 g/dL (33.0-36.5); MEAN PLATELET VOLUME 9.9 FL (7.4-10.4); MONOCYTES # (AUTO) 0.5 X10'3 (0-0.9); MONOCYTES % (AUTO) 4.2 % (2-12); NEUTROPHILS # (AUTO) 10.2 X10'3 (1.8-7.7); NEUTROPHILS % (AUTO) 79.3 % (42-75); PLATELET COUNT 196 X10'3 (140-440); RED BLOOD COUNT 4.11 X10'6 (4.20-5.60); RED CELL DISTRIBUTION WIDTH 22.1 % (11.5-14.5); WHITE BLOOD COUNT 12.8 X10'3 (4.5-11.0)
[2019-04-11 03:15] LABS: ALANINE AMINOTRANSFERASE 70 U/L (12-78); ALBUMIN 2.4 G/DL (3.4-5.0); ALBUMIN/GLOBULIN RATIO 0.6 (1.1-1.5); ALKALINE PHOSPHATASE 51 IU/L (46-116); ANION GAP 11 (8-16); ASPARTATE AMINO TRANSFERASE 54 U/L (10-37); BILIRUBIN,TOTAL 0.5 MG/DL (0.1-1.0); BLOOD UREA NITROGEN 84 MG/DL (7-18); BUN/CREATININE RATIO 107.7 (6.6-38.0); CALCIUM 8.9 MG/DL (8.5-10.1); CHLORIDE 116 MMOL/L (99-107); CREATININE 0.78 MG/DL (0.40-0.90); GLUCOSE 171 MG/DL (70-104); MAGNESIUM 2.1 MG/DL (1.5-2.4); PHOSPHORUS 2.8 MG/DL (2.3-4.5); POTASSIUM 3.8 MMOL/L (3.5-5.1); TOTAL CARBON DIOXIDE 28.3 MMOL/L (24-32); TOTAL PROTEIN 6.2 G/DL (6.4-8.2); VANCOMYCIN,TROUGH 16.1 UG/ML (6.0-14.0); eGFR 78 ML/MIN
[2019-04-11] MEDS: mineral oil/petrolatum ophthal oint EACHEYE SCH ×4 (03:23→20:11)
[2019-04-11] MEDS: insulin regular, human U-100 3ml vial - multi-dose SQ SCH ×4 (03:25→20:19)
[2019-04-11 03:35] LABS: SODIUM 155 MMOL/L (135-145)
[2019-04-11] MEDS: ipratropium/albuterol 3ml nebule NEB SCH ×6 (03:39→22:54)
[2019-04-11 03:51] LABS: PLATELET ESTIMATE NORMAL
[2019-04-11 03:56] LABS: ANISOCYTOSIS 3+; HYPOCHROMASIA 1+; MICROCYTOSIS 1+
[2019-04-11 03:56] LABS: ABG BASE EXCESS 1.5 mmol/L (-2.0-3.0); ABG HCO3 24.8 mmol/L (22.0-26.0); ABG OXYGEN SATURATION 96.2 % (95-98); ABG PCO2 (T) 34.7 mmHg (35.0-45.0); ABG PH (T) 7.473 (7.350-7.450); ABG PO2 (T) 87.1 mmHg (83-108); FMetHb 0.3 % (0.3-1.12); FO2Hb 95.9 % (94-100); PATIENT TEMPERATURE 37.4; PEEP 5 cm H2O; RESPIRATORY RATE 16 b/min; TIDAL VOLUME 500 mL
[2019-04-11] MEDS: carvedilol 6.25mg tablet PO SCH ×2 (07:23→20:10)
[2019-04-11] MEDS: pantoprazole 40 MG vial IV SCH (07:24)
[2019-04-11] MEDS: lactobacillus rhamnosus 10,000 MMU CELLS/CAPSULE OGT SCH ×2 (07:24→20:10)
[2019-04-11] MEDS: heparin, porcine 5000 units/ml vial SQ SCH ×2 (07:25→20:10)
[2019-04-11] MEDS: NYSTATIN CREAM - 30GM TUBE TP SCH ×2 (07:25→20:10)
[2019-04-11] MEDS: linezolid 600mg/300ml PREMIX 300 ML IV SCH ×2 (07:25→20:09)
[2019-04-11] MEDS: docusate sodium 100mg/10ml UD cup OGT SCH ×2 (08:00→20:00)
[2019-04-11] MEDS: K and/or MAG REPLACEMENT MC SCH ×2 (08:00→20:00)
--- NOTE | 2019-04-11 08:25 | NUR ---
Neuro update; Patient opens eyes spontaneously and grimaces to painful stimuli. She appears uncomfortable with oral care and turns head away. She twitches her eyes when painful stimuli is applied to the extremities, but does withdraw; her extremities are flaccid. However, she does not respond when painful stimuli is applied to her fingers or toes.
[2019-04-11] MEDS: dexmedetomidine inj. 400 MCG in normal saline 100ml IV soln 100 ML IV PRN ×2 (10:54→20:09)
--- NOTE | 2019-04-11 11:10 | NUR ---
Reassessment: Pt tolerating EN at goal GRV WNL. LBM 04/11 having regular BM's following rectal tube removal per RN today. Na 155 down from 158 receiving 250ml Q4 water flush and dextrose per MD. BUN also down to 84 today. Will continue to monitor. Recommendations: 1. Continuous Vital High Protein at goal rate of 90 mL/hr to provide: 2160 mL total volume/day, 2160 kcal, 189 g protein, and 1806 mL water 2. additional water flush 250ml q4 and dextrose per MD 3. Prealbumin q Sunday and ; daily wts 4. Routine bowel care Addendum: 04/11/19 at [address] Amended: Links added.
[2019-04-11] MEDS: MORPHINE/PF 100 MG in NS 100ml IV IV SCH (11:25)
[2019-04-11] MEDS: dextrose 5%-water 1,000 ML IV SCH (14:16)
[2019-04-11] MEDS: cefazolin/dext.iso 2gm/50ml 50 ML IV SCH (16:53)
--- NOTE | 2019-04-11 18:34 | NUR ---
Patient in room CICU 2006. I have received report from Rudy PATEL, and had the opportunity to ask questions and assume patient care.
[2019-04-11] MEDS: insulin glargine (Lantus) pen - multi-dose SQ SCH (20:20)
[2019-04-12] VITALS (24 sets, daily range): BP systolic 93–148; BP diastolic 55–88
[2019-04-12] MEDS: cefazolin/dext.iso 2gm/50ml 50 ML IV SCH ×3 (00:12→16:33)
[2019-04-12] MEDS: DOCOSANOL 2 GM CREAM..G. TP SCH ×4 (02:44→21:13)
[2019-04-12] MEDS: mineral oil/petrolatum ophthal oint EACHEYE SCH ×4 (02:45→21:12)
[2019-04-12] MEDS: insulin regular, human U-100 3ml vial - multi-dose SQ SCH ×4 (02:53→21:24)
[2019-04-12] MEDS: VANCOMYCIN LEVEL IV SCH (03:00)
[2019-04-12 03:11] LABS: BASOPHILS % (AUTO) 0.2 % (0-1); EOSINOPHILS # (AUTO) 0.5 X10'3 (0-0.9); EOSINOPHILS % (AUTO) 4.2 % (0-6); HEMATOCRIT 30.4 % (35.0-45.0); HEMOGLOBIN 9.2 g/dl (12.0-16.0); LYMPHOCYTES # (AUTO) 1.2 X10'3 (1.1-4.8); LYMPHOCYTES % (AUTO) 9.8 % (21-51); MEAN CORPUSCULAR HEMOGLOBIN 22.3 PG (27.0-31.0); MEAN CORPUSCULAR HGB CONC 30.5 g/dL (33.0-36.5); MEAN CORPUSCULAR VOLUME 73.1 FL (78-98); MEAN PLATELET VOLUME 9.8 FL (7.4-10.4); MONOCYTES # (AUTO) 0.7 X10'3 (0-0.9); NEUTROPHILS # (AUTO) 9.4 X10'3 (1.8-7.7); NEUTROPHILS % (AUTO) 79.8 % (42-75); PLATELET COUNT 195 X10'3 (140-440); RED BLOOD COUNT 4.16 X10'6 (4.20-5.60); RED CELL DISTRIBUTION WIDTH 22.3 % (11.5-14.5); WHITE BLOOD COUNT 11.8 X10'3 (4.5-11.0)
[2019-04-12 03:25] LABS: ALANINE AMINOTRANSFERASE 93 U/L (12-78); ALBUMIN 2.3 G/DL (3.4-5.0); ALBUMIN/GLOBULIN RATIO 0.6 (1.1-1.5); ALKALINE PHOSPHATASE 57 IU/L (46-116); ANION GAP 11 (8-16); ASPARTATE AMINO TRANSFERASE 62 U/L (10-37); BILIRUBIN,TOTAL 0.4 MG/DL (0.1-1.0); BLOOD UREA NITROGEN 70 MG/DL (7-18); BUN/CREATININE RATIO 87.5 (6.6-38.0); CALCIUM 8.6 MG/DL (8.5-10.1); CHLORIDE 112 MMOL/L (99-107); GLUCOSE 153 MG/DL (70-104); MAGNESIUM 1.9 MG/DL (1.5-2.4); PHOSPHORUS 2.9 MG/DL (2.3-4.5); SODIUM 149 MMOL/L (135-145); TOTAL CARBON DIOXIDE 26.1 MMOL/L (24-32); TOTAL PROTEIN 6.2 G/DL (6.4-8.2); VANCOMYCIN,TROUGH 7.7 UG/ML (6.0-14.0); eGFR 76 ML/MIN
[2019-04-12 04:01] LABS: NUCLEATED RED BLOOD CELLS 1 /100WBC (0-0); TOTAL CELLS COUNTED 100
[2019-04-12 04:02] LABS: ANISOCYTOSIS 3+; HYPOCHROMASIA 1+; MICROCYTOSIS 1+; PLATELET ESTIMATE NORMAL
[2019-04-12 04:03] LABS: POLYCHROMASIA FEW
[2019-04-12] MEDS: ipratropium/albuterol 3ml nebule NEB SCH ×6 (04:16→22:57)
[2019-04-12 04:31] LABS: ABG BASE EXCESS 0.2 mmol/L (-2.0-3.0); ABG HCO3 22.5 mmol/L (22.0-26.0); ABG OXYGEN SATURATION 94.7 % (95-98); ABG PCO2 (T) 29.5 mmHg (35.0-45.0); ABG PH (T) 7.504 (7.350-7.450); ALLEN'S TEST POSITIVE; FCOHb 0.3 % (0.5-1.5); FO2Hb 94.4 % (94-100); PEEP 5 cm H2O; RESPIRATORY RATE 16 b/min; TIDAL VOLUME 500 mL; TOTAL HEMOGLOBIN 9.7 G/dl (12.0-16.0)
[2019-04-12] MEDS: dexmedetomidine inj. 400 MCG in normal saline 100ml IV soln 100 ML IV PRN ×4 (04:56→21:32)
--- NOTE | 2019-04-12 06:35 | NUR ---
Problems reprioritized. Patient report given, questions answered & plan of care reviewed with Rudy PATEL.
[2019-04-12] MEDS: docusate sodium 100mg/10ml UD cup OGT SCH ×2 (08:00→20:00)
[2019-04-12] MEDS: K and/or MAG REPLACEMENT MC SCH ×2 (08:00→20:00)
[2019-04-12] MEDS: NYSTATIN CREAM - 30GM TUBE TP SCH ×2 (08:00→21:12)
[2019-04-12] MEDS: pantoprazole 40 MG vial IV SCH (08:00)
[2019-04-12] MEDS: methylnaltrexone br 12mg/0.6ml inj***SubQ only SQ SCH (08:00)
[2019-04-12] MEDS ORDERED: vancomycin/NS 1 GM ADD-VANTAGE 250 ML IV ONE (09:00)
[2019-04-12] MEDS: heparin, porcine 5000 units/ml vial SQ SCH ×2 (10:03→21:15)
[2019-04-12] MEDS: carvedilol 6.25mg tablet PO SCH ×2 (10:03→21:15)
[2019-04-12] MEDS: lactobacillus rhamnosus 10,000 MMU CELLS/CAPSULE OGT SCH ×2 (10:04→21:16)
[2019-04-12] MEDS: linezolid 600mg/300ml PREMIX 300 ML IV SCH ×2 (10:24→21:29)
[2019-04-12] MEDS: dextrose 5%-water 1,000 ML IV SCH ×2 (12:30→18:52)
--- NOTE | 2019-04-12 18:30 | NUR ---
Patient in room CICU 2006. I have received report from AMANDA Grant and had the opportunity to ask questions and assume patient care.
[2019-04-12] MEDS: insulin glargine (Lantus) pen - multi-dose SQ SCH (21:27)
[2019-04-13] VITALS (27 sets, daily range): BP systolic 108–159; BP diastolic 56–99
[2019-04-13] MEDS: cefazolin/dext.iso 2gm/50ml 50 ML IV SCH ×4 (00:36→23:55)
[2019-04-13] MEDS: VANCOMYCIN LEVEL IV SCH ×3 (03:00→14:00)
[2019-04-13] MEDS: mineral oil/petrolatum ophthal oint EACHEYE SCH ×4 (03:03→21:16)
[2019-04-13] MEDS: DOCOSANOL 2 GM CREAM..G. TP SCH ×4 (03:03→21:18)
[2019-04-13] MEDS: insulin regular, human U-100 3ml vial - multi-dose SQ SCH ×4 (03:06→21:33)
[2019-04-13] MEDS: dexmedetomidine inj. 400 MCG in normal saline 100ml IV soln 100 ML IV PRN ×4 (03:14→23:51)
[2019-04-13 03:22] LABS: BASOPHILS % (AUTO) 0.4 % (0-1); EOSINOPHILS # (AUTO) 0.4 X10'3 (0-0.9); EOSINOPHILS % (AUTO) 4.5 % (0-6); HEMATOCRIT 27.2 % (35.0-45.0); HEMOGLOBIN 8.5 g/dl (12.0-16.0); LYMPHOCYTES # (AUTO) 1.2 X10'3 (1.1-4.8); LYMPHOCYTES % (AUTO) 13.1 % (21-51); MEAN CORPUSCULAR HEMOGLOBIN 22.9 PG (27.0-31.0); MEAN CORPUSCULAR HGB CONC 31.3 g/dL (33.0-36.5); MEAN PLATELET VOLUME 9.8 FL (7.4-10.4); MONOCYTES # (AUTO) 0.6 X10'3 (0-0.9); MONOCYTES % (AUTO) 6.2 % (2-12); NEUTROPHILS # (AUTO) 7.1 X10'3 (1.8-7.7); NEUTROPHILS % (AUTO) 75.8 % (42-75); PLATELET COUNT 184 X10'3 (140-440); RED BLOOD COUNT 3.73 X10'6 (4.20-5.60); RED CELL DISTRIBUTION WIDTH 22.6 % (11.5-14.5); WHITE BLOOD COUNT 9.3 X10'3 (4.5-11.0)
[2019-04-13 03:36] LABS: ALANINE AMINOTRANSFERASE 72 U/L (12-78); ALBUMIN 2.1 G/DL (3.4-5.0); ALBUMIN/GLOBULIN RATIO 0.6 (1.1-1.5); ALKALINE PHOSPHATASE 54 IU/L (46-116); ANION GAP 12 (8-16); ASPARTATE AMINO TRANSFERASE 65 U/L (10-37); BILIRUBIN,TOTAL 0.4 MG/DL (0.1-1.0); BLOOD UREA NITROGEN 54 MG/DL (7-18); CALCIUM 8.2 MG/DL (8.5-10.1); CHLORIDE 108 MMOL/L (99-107); CREATININE 0.74 MG/DL (0.40-0.90); GLUCOSE 139 MG/DL (70-104); MAGNESIUM 1.8 MG/DL (1.5-2.4); PHOSPHORUS 3.2 MG/DL (2.3-4.5); POTASSIUM 3.7 MMOL/L (3.5-5.1); SODIUM 144 MMOL/L (135-145); TOTAL CARBON DIOXIDE 23.7 MMOL/L (24-32); TOTAL PROTEIN 5.7 G/DL (6.4-8.2); TRIGLYCERIDES 129 MG/DL (20-135); eGFR 83 ML/MIN
[2019-04-13] MEDS: ipratropium/albuterol 3ml nebule NEB SCH ×6 (03:49→22:58)
[2019-04-13 05:30] LABS: ABG BASE EXCESS -1.5 mmol/L (-2.0-3.0); ABG HCO3 21.3 mmol/L (22.0-26.0); ABG OXYGEN SATURATION 95.7 % (95-98); ABG PCO2 (T) 29.4 mmHg (35.0-45.0); ABG PH (T) 7.479 (7.350-7.450); ABG PO2 (T) 81.3 mmHg (83-108); ALLEN'S TEST POSITIVE; FCOHb 0.3 % (0.5-1.5); FMetHb 0.3 % (0.3-1.12); FO2Hb 95.1 % (94-100); PATIENT TEMPERATURE 37.4; PEEP 5 cm H2O; RESPIRATORY RATE 16 b/min; TIDAL VOLUME 500 mL
[2019-04-13 06:21] LABS: NUCLEATED RED BLOOD CELLS 4 /100WBC (0-0); TOTAL CELLS COUNTED 100
[2019-04-13 06:22] LABS: ANISOCYTOSIS 3+; MICROCYTOSIS 1+; PLATELET ESTIMATE NORMAL
--- NOTE | 2019-04-13 06:30 | NUR ---
Patient in room CICU 2006. I have received report from June PATEL and had the opportunity to ask questions and assume patient care.
--- NOTE | 2019-04-13 06:39 | NUR ---
Problems reprioritized. Patient report given, questions answered & plan of care reviewed with AMANDA Schofield.
[2019-04-13] MEDS: docusate sodium 100mg/10ml UD cup OGT SCH ×2 (07:56→20:00)
[2019-04-13] MEDS: K and/or MAG REPLACEMENT MC SCH ×2 (08:00→20:00)
[2019-04-13] MEDS: pantoprazole 40 MG vial IV SCH (08:09)
[2019-04-13] MEDS: lactobacillus rhamnosus 10,000 MMU CELLS/CAPSULE OGT SCH ×2 (08:10→21:17)
[2019-04-13] MEDS: carvedilol 6.25mg tablet PO SCH ×2 (08:10→21:17)
[2019-04-13] MEDS: heparin, porcine 5000 units/ml vial SQ SCH ×2 (08:10→21:17)
[2019-04-13] MEDS: linezolid 600mg/300ml PREMIX 300 ML IV SCH ×2 (08:10→21:16)
[2019-04-13] MEDS: NYSTATIN CREAM - 30GM TUBE TP SCH ×2 (08:11→21:18)
--- NOTE | 2019-04-13 10:27 | NUR ---
Dr. Shah in to see pt. Pt. able to follow some commands for Dr. Shah. Stated to obtain weaning parameters on pt. Will notify RT.
[2019-04-13] MEDS: MORPHINE/PF 100 MG in NS 100ml IV IV SCH (11:25)
--- NOTE | 2019-04-13 12:08 | NUR ---
RT performed weaning parameters. Pt. failed. Pt. does not open mouth for oral care/suction.
--- NOTE | 2019-04-13 12:09 | NUR ---
PRE TX ASSESSMENT COMPLETED JUST AFTER SCANNED MED. TIME DIFFERENCE DUE TO PT. IN ISOLATION. Addendum: 04/13/19 at 1210 by Marty Vee RT Amended: Links added.
[2019-04-13] MEDS ORDERED: vancomycin/NS 1 GM ADD-VANTAGE 250 ML IV PRN (14:00)
[2019-04-13] MEDS ORDERED: vancomycin/NS 1 GM ADD-VANTAGE 250 ML IV ONE (16:15)
--- NOTE | 2019-04-13 17:47 | NUR ---
Two daughters and one son visited pt. today. VSS. Pt. did not pass weaning parameters. FI02 remains 30% on vent.
--- NOTE | 2019-04-13 18:19 | NUR ---
Patient in room CICU 2006. I have received report from AMANDA Schofield and had the opportunity to ask questions and assume patient care.
--- NOTE | 2019-04-13 18:20 | NUR ---
Problems reprioritized. Patient report given, questions answered & plan of care reviewed with June PATEL.
[2019-04-13 19:50] LABS: ALBUMIN 2.1 G/DL (3.4-5.0); ANION GAP 6 (8-16); BLOOD UREA NITROGEN 49 MG/DL (7-18); BUN/CREATININE RATIO 73.1 (6.6-38.0); CHLORIDE 109 MMOL/L (99-107); CREATININE 0.67 MG/DL (0.40-0.90); GLUCOSE 89 MG/DL (70-104); MAGNESIUM 1.8 MG/DL (1.5-2.4); POTASSIUM 3.7 MMOL/L (3.5-5.1); SODIUM 142 MMOL/L (135-145); TOTAL CARBON DIOXIDE 27.5 MMOL/L (24-32); eGFR > 90 ML/MIN
[2019-04-13] MEDS: insulin glargine (Lantus) pen - multi-dose SQ SCH (21:34)
[2019-04-14] VITALS (24 sets, daily range): BP systolic 91–174; BP diastolic 48–96
[2019-04-14] MEDS: DOCOSANOL 2 GM CREAM..G. TP SCH ×4 (02:18→20:24)
[2019-04-14] MEDS: mineral oil/petrolatum ophthal oint EACHEYE SCH ×4 (02:18→20:24)
[2019-04-14] MEDS: insulin regular, human U-100 3ml vial - multi-dose SQ SCH ×4 (02:20→20:44)
[2019-04-14] MEDS: VANCOMYCIN LEVEL IV SCH (02:23)
--- NOTE | 2019-04-14 03:11 | NUR ---
Patient restless in bed, moving legs. Patient responds to verbal, tracking where voice is coming from. Patient is able to squeeze left hand when asked. Patient tearful, when asked if she was in pain patient squeezes left hand in response.
[2019-04-14 03:12] LABS: BASOPHILS % (AUTO) 0.2 % (0-1); EOSINOPHILS # (AUTO) 0.6 X10'3 (0-0.9); EOSINOPHILS % (AUTO) 5.8 % (0-6); HEMATOCRIT 25.8 % (35.0-45.0); HEMOGLOBIN 8.1 g/dl (12.0-16.0); LYMPHOCYTES # (AUTO) 0.6 X10'3 (1.1-4.8); LYMPHOCYTES % (AUTO) 5.9 % (21-51); MEAN CORPUSCULAR HEMOGLOBIN 23.5 PG (27.0-31.0); MEAN CORPUSCULAR HGB CONC 31.5 g/dL (33.0-36.5); MEAN CORPUSCULAR VOLUME 74.5 FL (78-98); MEAN PLATELET VOLUME 10.9 FL (7.4-10.4); MONOCYTES # (AUTO) 0.8 X10'3 (0-0.9); MONOCYTES % (AUTO) 7.5 % (2-12); NEUTROPHILS # (AUTO) 8.1 X10'3 (1.8-7.7); NEUTROPHILS % (AUTO) 80.6 % (42-75); PLATELET COUNT 190 X10'3 (140-440); RED BLOOD COUNT 3.46 X10'6 (4.20-5.60); RED CELL DISTRIBUTION WIDTH 22.4 % (11.5-14.5); WHITE BLOOD COUNT 10.1 X10'3 (4.5-11.0)
[2019-04-14 03:15] LABS: ALANINE AMINOTRANSFERASE 45 U/L (12-78); ALBUMIN/GLOBULIN RATIO 0.6 (1.1-1.5); ALKALINE PHOSPHATASE 55 IU/L (46-116); ANION GAP 5 (8-16); ASPARTATE AMINO TRANSFERASE 54 U/L (10-37); BILIRUBIN,TOTAL 0.3 MG/DL (0.1-1.0); BLOOD UREA NITROGEN 47 MG/DL (7-18); BUN/CREATININE RATIO 74.6 (6.6-38.0); CHLORIDE 108 MMOL/L (99-107); CREATININE 0.63 MG/DL (0.40-0.90); GLUCOSE 123 MG/DL (70-104); MAGNESIUM 1.7 MG/DL (1.5-2.4); PHOSPHORUS 3.4 MG/DL (2.3-4.5); POTASSIUM 3.6 MMOL/L (3.5-5.1); PREALBUMIN 25.7 MG/DL (19-36); SODIUM 140 MMOL/L (135-145); TOTAL CARBON DIOXIDE 27.3 MMOL/L (24-32); TOTAL PROTEIN 5.4 G/DL (6.4-8.2); VANCOMYCIN,TROUGH 14.4 UG/ML (6.0-14.0); eGFR > 90 ML/MIN
[2019-04-14] MEDS: ipratropium/albuterol 3ml nebule NEB SCH ×6 (03:19→22:37)
--- NOTE | 2019-04-14 03:20 | NUR ---
Wanda Farley, J2EE APPLICATION DEVELOPER made aware of patients pain assessment. She will place orders.
[2019-04-14] MEDS: morphine 2 MG/ML inj. syringe IV PRN ×2 (03:25→08:40)
[2019-04-14] MEDS: LORazepam 2 mg/ml vial IV PRN ×2 (03:39→09:15)
--- NOTE | 2019-04-14 03:40 | NUR ---
Patient anxious, restless, moving legs and head. Ativan administered as ordered.
[2019-04-14 04:35] LABS: ABG HCO3 20.4 mmol/L (22.0-26.0); ABG OXYGEN SATURATION 93.5 % (95-98); ABG PCO2 (T) 26.6 mmHg (35.0-45.0); ABG PH (T) 7.502 (7.350-7.450); ALLEN'S TEST POSITIVE; FCOHb 0.2 % (0.5-1.5); FMetHb 0.3 % (0.3-1.12); PATIENT TEMPERATURE 36.7; RESPIRATORY RATE 14 b/min; TIDAL VOLUME 500 mL; TOTAL HEMOGLOBIN 9.4 G/dl (12.0-16.0)
[2019-04-14] MEDS: dexmedetomidine inj. 400 MCG in normal saline 100ml IV soln 100 ML IV PRN ×4 (05:17→20:21)
--- NOTE | 2019-04-14 06:37 | NUR ---
Problems reprioritized. Patient report given, questions answered & plan of care reviewed with AMANDA Schofield.
[2019-04-14] MEDS: lactobacillus rhamnosus 10,000 MMU CELLS/CAPSULE OGT SCH ×2 (07:46→20:21)
[2019-04-14] MEDS: cefazolin/dext.iso 2gm/50ml 50 ML IV SCH ×2 (07:46→16:15)
[2019-04-14] MEDS: carvedilol 6.25mg tablet PO SCH ×2 (07:46→20:21)
[2019-04-14] MEDS: heparin, porcine 5000 units/ml vial SQ SCH ×2 (07:46→20:25)
[2019-04-14] MEDS: pantoprazole 40 MG vial IV SCH (07:51)
[2019-04-14] MEDS: NYSTATIN CREAM - 30GM TUBE TP SCH ×2 (07:51→20:24)
[2019-04-14] MEDS: K and/or MAG REPLACEMENT MC SCH ×2 (08:00→20:00)
[2019-04-14] MEDS: methylnaltrexone br 12mg/0.6ml inj***SubQ only SQ SCH (08:00)
[2019-04-14] MEDS: docusate sodium 100mg/10ml UD cup OGT SCH ×2 (08:00→20:00)
[2019-04-14] MEDS: linezolid 600mg/300ml PREMIX 300 ML IV SCH ×2 (08:03→20:21)
[2019-04-14] MEDS ORDERED: vancomycin/NS 1 GM ADD-VANTAGE 250 ML IV ONE (08:30)
--- NOTE | 2019-04-14 08:59 | NUR ---
Pt. just medicated with Morphine. Pt. was crying, moving her feet constantly and shaking her head violently that she unattached ETT from vent tubing. BP and HR were elevated.
--- NOTE | 2019-04-14 09:21 | NUR ---
Medicated with Ativan for tachycardia, hypertension and crying. Pt. was on spontaneous for almost 2 hours. Placed back on a rate for now per RT.
[2019-04-14 09:33] LABS: TOTAL CELLS COUNTED 100
[2019-04-14 09:34] LABS: ANISOCYTOSIS 3+; MICROCYTOSIS 1+; PLATELET ESTIMATE NORMAL; POLYCHROMASIA 2+
[2019-04-14] MEDS ORDERED: tPA-cathflo 2 MG/2 ml IV flush IVF ONE (15:40)
--- NOTE | 2019-04-14 18:21 | NUR ---
Problems reprioritized. Patient report given, questions answered & plan of care reviewed with June PATEL.
--- NOTE | 2019-04-14 18:26 | NUR ---
Patient in room CICU 2006. I have received report from AMANDA Schofield and had the opportunity to ask questions and assume patient care.
[2019-04-14] MEDS: insulin glargine (Lantus) pen - multi-dose SQ SCH (20:45)
[2019-04-15] VITALS (25 sets, daily range): BP systolic 93–188; BP diastolic 54–107
[2019-04-15] MEDS: cefazolin/dext.iso 2gm/50ml 50 ML IV SCH ×3 (00:19→15:48)
[2019-04-15] MEDS: dexmedetomidine inj. 400 MCG in normal saline 100ml IV soln 100 ML IV PRN ×6 (00:59→22:19)
[2019-04-15] MEDS: morphine 2 MG/ML inj. syringe IV PRN ×4 (01:31→21:15)
[2019-04-15 02:11] LABS: ABG BASE EXCESS -2.5 mmol/L (-2.0-3.0); ABG HCO3 20.4 mmol/L (22.0-26.0); ABG OXYGEN SATURATION 92.6 % (95-98); ABG PCO2 (T) 28.1 mmHg (35.0-45.0); ABG PH (T) 7.478 (7.350-7.450); ABG PO2 (T) 64.6 mmHg (83-108); ALLEN'S TEST POSITIVE; FCOHb 0.1 % (0.5-1.5); FMetHb 0.2 % (0.3-1.12); FO2Hb 92.3 % (94-100); PATIENT TEMPERATURE 36.7; PEEP 5 cm H2O; RESPIRATORY RATE 14 b/min; TIDAL VOLUME 500 mL
[2019-04-15] MEDS: ipratropium/albuterol 3ml nebule NEB SCH ×6 (02:46→23:07)
[2019-04-15] MEDS: VANCOMYCIN LEVEL IV SCH (03:00)
[2019-04-15] MEDS: DOCOSANOL 2 GM CREAM..G. TP SCH ×4 (03:13→20:11)
[2019-04-15] MEDS: mineral oil/petrolatum ophthal oint EACHEYE SCH ×4 (03:13→19:54)
[2019-04-15 03:14] LABS: BASOPHILS % (AUTO) 0.2 % (0-1); EOSINOPHILS # (AUTO) 0.5 X10'3 (0-0.9); HEMATOCRIT 26.2 % (35.0-45.0); HEMOGLOBIN 8.5 g/dl (12.0-16.0); LYMPHOCYTES # (AUTO) 0.8 X10'3 (1.1-4.8); LYMPHOCYTES % (AUTO) 9.8 % (21-51); MEAN CORPUSCULAR HEMOGLOBIN 24.3 PG (27.0-31.0); MEAN CORPUSCULAR HGB CONC 32.3 g/dL (33.0-36.5); MEAN CORPUSCULAR VOLUME 75.3 FL (78-98); MEAN PLATELET VOLUME 9.7 FL (7.4-10.4); MONOCYTES # (AUTO) 0.7 X10'3 (0-0.9); MONOCYTES % (AUTO) 8.1 % (2-12); NEUTROPHILS # (AUTO) 6.4 X10'3 (1.8-7.7); NEUTROPHILS % (AUTO) 75.9 % (42-75); PLATELET COUNT 187 X10'3 (140-440); RED BLOOD COUNT 3.49 X10'6 (4.20-5.60); RED CELL DISTRIBUTION WIDTH 22.2 % (11.5-14.5); WHITE BLOOD COUNT 8.5 X10'3 (4.5-11.0)
[2019-04-15] MEDS: insulin regular, human U-100 3ml vial - multi-dose SQ SCH ×4 (03:19→20:29)
[2019-04-15 03:26] LABS: ALANINE AMINOTRANSFERASE 31 U/L (12-78); ALBUMIN/GLOBULIN RATIO 0.6 (1.1-1.5); ALKALINE PHOSPHATASE 61 IU/L (46-116); ANION GAP 8 (8-16); ASPARTATE AMINO TRANSFERASE 45 U/L (10-37); BILIRUBIN,TOTAL 0.2 MG/DL (0.1-1.0); BLOOD UREA NITROGEN 42 MG/DL (7-18); BUN/CREATININE RATIO 68.9 (6.6-38.0); CALCIUM 8.3 MG/DL (8.5-10.1); CHLORIDE 108 MMOL/L (99-107); CREATININE 0.61 MG/DL (0.40-0.90); GLUCOSE 135 MG/DL (70-104); MAGNESIUM 1.7 MG/DL (1.5-2.4); PHOSPHORUS 3.5 MG/DL (2.3-4.5); POTASSIUM 3.9 MMOL/L (3.5-5.1); SODIUM 140 MMOL/L (135-145); TOTAL CARBON DIOXIDE 24.4 MMOL/L (24-32); TOTAL PROTEIN 5.5 G/DL (6.4-8.2); TRIGLYCERIDES 116 MG/DL (20-135); VANCOMYCIN,TROUGH 12.1 UG/ML (6.0-14.0); eGFR > 90 ML/MIN
[2019-04-15 03:40] LABS: PLATELET ESTIMATE NORMAL
[2019-04-15 03:42] LABS: ANISOCYTOSIS 3+; HYPOCHROMASIA 1+; MICROCYTOSIS 2+
--- NOTE | 2019-04-15 06:44 | NUR ---
Problems reprioritized. Patient report given, questions answered & plan of care reviewed with AMANDA Schofield.
[2019-04-15] MEDS: carvedilol 6.25mg tablet PO SCH ×2 (07:17→19:52)
[2019-04-15] MEDS: LORazepam 2 mg/ml vial IV PRN ×3 (07:17→22:19)
[2019-04-15] MEDS: pantoprazole 40 MG vial IV SCH (07:17)
[2019-04-15] MEDS: lactobacillus rhamnosus 10,000 MMU CELLS/CAPSULE OGT SCH ×2 (07:18→19:52)
[2019-04-15] MEDS: heparin, porcine 5000 units/ml vial SQ SCH ×2 (07:18→19:53)
[2019-04-15] MEDS: NYSTATIN CREAM - 30GM TUBE TP SCH ×2 (07:19→19:54)
[2019-04-15] MEDS: K and/or MAG REPLACEMENT MC SCH ×2 (07:30→19:53)
[2019-04-15] MEDS: docusate sodium 100mg/10ml UD cup OGT SCH ×2 (07:30→19:52)
[2019-04-15] MEDS: linezolid 600mg/300ml PREMIX 300 ML IV SCH ×2 (07:57→19:53)
--- NOTE | 2019-04-15 08:51 | NUR ---
Pt. changed to spontaneous on vent. Premedicated with Ativan per Dr. Iverson's order. Pt. became tachypnic, tacycardic (130s), and hypertensive (180/100), crying and moving legs. Medicated with Morphine. Pt. changed back to a rate on the vent per RT.
--- NOTE | 2019-04-15 14:19 | NUR ---
Daughter and friend at bedside. Pt. tolerated sitting in the bed's "chair" position for several hours. Tachycardic but stable BP.
--- NOTE | 2019-04-15 17:17 | NUR ---
Reassessment: Pt intubated and sedated, tolerating EN at goal and gastric residual volumes WNL. LBM 04/15 having moderate sized BMs. Sodium now within normal limits and BUN 42. no change in nutrition intervention. Will continue to monitor. Recommendations: 1. Continuous Vital High Protein at goal rate of 90 mL/hr to provide: 2160 mL total volume/day, 2160 kcal, 189 g protein, and 1806 mL water 2. additional water flush 250ml q4 and dextrose per MD 3. Prealbumin q Sunday and ; daily wts 4. Routine bowel care Addendum: 04/15/19 at [address] Amended: Links added.
--- NOTE | 2019-04-15 17:32 | NUR ---
Pt. seemed to have a panic attack a while ago while two older women visitors were present. Nodded "yes" to pain. Medicated with Morphine. Pt. persisted to kick her left foot out and remained tachycardic, tachypnic and hypertensive. Visitors were kindly asked to leave as pt. seemed to be escalating. Ativan was then given. Pt. just now starting to calm down.
--- NOTE | 2019-04-15 18:26 | NUR ---
Patient in room CICU 2006. I have received report from Kanwal PATEL, and had the opportunity to ask questions and assume patient care.
[2019-04-15] MEDS: insulin glargine (Lantus) pen - multi-dose SQ SCH (20:30)
[2019-04-15] MEDS: furosemide 10 MG/1 ML 10ml inj IV SCH (20:40)
--- NOTE | 2019-04-15 22:25 | NUR ---
PRN Ativan given d/t pt appearing anxious. PT laying in bed, eyes wide open looking up at ceiling, RR 28, HR was in 110's, and pt moving her feet rapidly side to side. Will continue to monitor.
--- NOTE | 2019-04-15 23:04 | NUR ---
Ativan effective, PT resting with no s/s of distress noted at this time. RR is <20, HR in 70's. VSS. Will continue to monitor.
[2019-04-16] VITALS (23 sets, daily range): BP systolic 88–158; BP diastolic 48–104
[2019-04-16] MEDS: furosemide 10 MG/1 ML 10ml inj IV SCH ×4 (01:13→15:46)
[2019-04-16] MEDS: dexmedetomidine inj. 400 MCG in normal saline 100ml IV soln 100 ML IV PRN ×5 (01:13→16:32)
[2019-04-16] MEDS: ipratropium/albuterol 3ml nebule NEB SCH ×6 (02:51→23:04)
[2019-04-16] MEDS: VANCOMYCIN LEVEL IV SCH (03:00)
[2019-04-16] MEDS: mineral oil/petrolatum ophthal oint EACHEYE SCH ×4 (03:25→20:05)
[2019-04-16] MEDS: DOCOSANOL 2 GM CREAM..G. TP SCH ×4 (03:25→20:05)
[2019-04-16] MEDS: insulin regular, human U-100 3ml vial - multi-dose SQ SCH ×4 (03:28→20:49)
[2019-04-16 03:43] LABS: BASOPHILS % (AUTO) 0.4 % (0-1); EOSINOPHILS # (AUTO) 0.4 X10'3 (0-0.9); HEMATOCRIT 25.9 % (35.0-45.0); LYMPHOCYTES # (AUTO) 0.8 X10'3 (1.1-4.8); LYMPHOCYTES % (AUTO) 12.5 % (21-51); MEAN CORPUSCULAR HEMOGLOBIN 23.6 PG (27.0-31.0); MEAN CORPUSCULAR VOLUME 76.2 FL (78-98); MEAN PLATELET VOLUME 10.2 FL (7.4-10.4); MONOCYTES # (AUTO) 0.6 X10'3 (0-0.9); NEUTROPHILS # (AUTO) 4.8 X10'3 (1.8-7.7); NEUTROPHILS % (AUTO) 72.1 % (42-75); PLATELET COUNT 224 X10'3 (140-440); RED BLOOD COUNT 3.39 X10'6 (4.20-5.60); RED CELL DISTRIBUTION WIDTH 22.1 % (11.5-14.5); WHITE BLOOD COUNT 6.6 X10'3 (4.5-11.0)
[2019-04-16 03:51] LABS: ALANINE AMINOTRANSFERASE 23 U/L (12-78); ALBUMIN/GLOBULIN RATIO 0.6 (1.1-1.5); ALKALINE PHOSPHATASE 61 IU/L (46-116); ANION GAP 7 (8-16); ASPARTATE AMINO TRANSFERASE 38 U/L (10-37); BILIRUBIN,TOTAL 0.3 MG/DL (0.1-1.0); CALCIUM 8.5 MG/DL (8.5-10.1); CHLORIDE 109 MMOL/L (99-107); CREATININE 0.59 MG/DL (0.40-0.90); GLUCOSE 149 MG/DL (70-104); MAGNESIUM 1.7 MG/DL (1.5-2.4); PHOSPHORUS 4.2 MG/DL (2.3-4.5); SODIUM 141 MMOL/L (135-145); TOTAL CARBON DIOXIDE 24.8 MMOL/L (24-32); TOTAL PROTEIN 5.5 G/DL (6.4-8.2); TRIGLYCERIDES 104 MG/DL (20-135); VANCOMYCIN,TROUGH 6.1 UG/ML (6.0-14.0); eGFR > 90 ML/MIN
[2019-04-16 04:06] LABS: ANISOCYTOSIS 3+; HYPOCHROMASIA 1+; MICROCYTOSIS 1+; PLATELET ESTIMATE NORMAL; POLYCHROMASIA 1+
[2019-04-16 04:07] LABS: SCHISTOCYTES FEW
[2019-04-16 04:08] LABS: BLOOD UREA NITROGEN 46 MG/DL (7-18)
[2019-04-16 04:16] LABS: ABG BASE EXCESS -3.4 mmol/L (-2.0-3.0); ABG HCO3 20.2 mmol/L (22.0-26.0); ABG OXYGEN SATURATION 91.7 % (95-98); ABG PCO2 (T) 30.3 mmHg (35.0-45.0); ALLEN'S TEST POSITIVE; FCOHb 0.1 % (0.5-1.5); FMetHb 0.1 % (0.3-1.12); FO2Hb 91.5 % (94-100); PATIENT TEMPERATURE 36.7; PEEP 5 cm H2O; RESPIRATORY RATE 14 b/min; TIDAL VOLUME 500 mL; TOTAL HEMOGLOBIN 8.8 G/dl (12.0-16.0)
--- NOTE | 2019-04-16 06:45 | NUR ---
Patient in room CICU 2006. I have received report from Ana PATEL and had the opportunity to ask questions and assume patient care.
[2019-04-16] MEDS: LORazepam 2 mg/ml vial IV PRN (06:53)
--- NOTE | 2019-04-16 06:53 | NUR ---
Problems reprioritized. Patient report given, questions answered & plan of care reviewed with Bri PATEL.
[2019-04-16] MEDS: linezolid 600mg/300ml PREMIX 300 ML IV SCH ×2 (07:59→20:05)
[2019-04-16] MEDS: pantoprazole 40 MG vial IV SCH (08:00)
[2019-04-16] MEDS: docusate sodium 100mg/10ml UD cup OGT SCH ×2 (08:00→20:00)
[2019-04-16] MEDS: K and/or MAG REPLACEMENT MC SCH ×2 (08:00→20:00)
[2019-04-16] MEDS: methylnaltrexone br 12mg/0.6ml inj***SubQ only SQ SCH (08:00)
[2019-04-16] MEDS: lactobacillus rhamnosus 10,000 MMU CELLS/CAPSULE OGT SCH ×2 (08:01→20:05)
[2019-04-16] MEDS: carvedilol 6.25mg tablet PO SCH ×2 (08:01→20:06)
[2019-04-16] MEDS: heparin, porcine 5000 units/ml vial SQ SCH ×2 (08:01→20:06)
[2019-04-16] MEDS: NYSTATIN CREAM - 30GM TUBE TP SCH ×2 (08:05→20:04)
[2019-04-16] MEDS ORDERED: DOPamine 400mg/D5W 250ml 250 ML IV SCH (13:15)
--- NOTE | 2019-04-16 18:35 | NUR ---
Patient report given, questions answered & plan of care reviewed with Ana PATEL .
--- NOTE | 2019-04-16 18:40 | NUR ---
Patient in room CICU 2006. I have received report from Bri PATEL, and had the opportunity to ask questions and assume patient care.
--- NOTE | 2019-04-16 20:40 | NUR ---
PTs blood sugars are noted to be decreasing. ASSISTANT ENGINEER Miguelito notified and order received to reduce PT from level 6 to a level 4 and to keep Lantus the same. Will continue to monitor.
[2019-04-16] MEDS: insulin glargine (Lantus) pen - multi-dose SQ SCH (20:51)
[2019-04-17] VITALS (24 sets, daily range): BP systolic 107–150; BP diastolic 65–93
[2019-04-17] MEDS: furosemide 10 MG/1 ML 10ml inj IV SCH ×3 (00:08→16:35)
[2019-04-17] MEDS: dexmedetomidine inj. 400 MCG in normal saline 100ml IV soln 100 ML IV PRN ×5 (02:24→20:11)
[2019-04-17] MEDS: DOCOSANOL 2 GM CREAM..G. TP SCH ×4 (02:24→22:29)
[2019-04-17] MEDS: mineral oil/petrolatum ophthal oint EACHEYE SCH ×4 (02:25→20:10)
[2019-04-17] MEDS: ipratropium/albuterol 3ml nebule NEB SCH ×6 (02:56→23:02)
[2019-04-17] MEDS: insulin regular, human U-100 3ml vial - multi-dose SQ SCH ×3 (02:58→14:09)
--- NOTE | 2019-04-17 04:00 | NUR ---
PT has been more responsive this shift. Nods head yes/no to simple questions and seems to be comprehending more. PT is also moving lower extremities to command, is able to shrug RT shoulder and move fingertips bilaterally, slightly on command. When PT asked to squeeze fingers, an attempt can be felt but no real strength behind the effort. PT hands and fingers are edematous making mobility difficult. PT has also remained more calm and relaxed this shift, Precedex continues to run @ 1mg/kg/min. PT has tolerated very well, no further anxiolytic required. Will continue to monitor.
[2019-04-17 04:11] LABS: ABG BASE EXCESS -1.8 mmol/L (-2.0-3.0); ABG HCO3 20.5 mmol/L (22.0-26.0); ABG PH (T) 7.499 (7.350-7.450); ABG PO2 (T) 75.9 mmHg (83-108); ALLEN'S TEST POSITIVE; FCOHb 0.2 % (0.5-1.5); FMetHb 0.3 % (0.3-1.12); FO2Hb 94.5 % (94-100); PEEP 5 cm H2O; RESPIRATORY RATE 14 b/min; TIDAL VOLUME 500 mL; TOTAL HEMOGLOBIN 9.9 G/dl (12.0-16.0)
[2019-04-17 04:28] LABS: BASOPHILS % (AUTO) 0.1 % (0-1); EOSINOPHILS # (AUTO) 0.5 X10'3 (0-0.9); EOSINOPHILS % (AUTO) 4.7 % (0-6); HEMATOCRIT 29.4 % (35.0-45.0); HEMOGLOBIN 9.2 g/dl (12.0-16.0); LYMPHOCYTES # (AUTO) 0.9 X10'3 (1.1-4.8); MEAN CORPUSCULAR HEMOGLOBIN 24.1 PG (27.0-31.0); MEAN CORPUSCULAR HGB CONC 31.3 g/dL (33.0-36.5); MEAN CORPUSCULAR VOLUME 76.9 FL (78-98); MEAN PLATELET VOLUME 10.8 FL (7.4-10.4); MONOCYTES # (AUTO) 0.7 X10'3 (0-0.9); MONOCYTES % (AUTO) 7.3 % (2-12); NEUTROPHILS # (AUTO) 7.7 X10'3 (1.8-7.7); NEUTROPHILS % (AUTO) 78.9 % (42-75); PLATELET COUNT 257 X10'3 (140-440); RED BLOOD COUNT 3.82 X10'6 (4.20-5.60); RED CELL DISTRIBUTION WIDTH 33.9 % (11.5-14.5); WHITE BLOOD COUNT 9.8 X10'3 (4.5-11.0)
[2019-04-17 04:34] LABS: ALANINE AMINOTRANSFERASE 25 U/L (12-78); ALBUMIN 2.3 G/DL (3.4-5.0); ALBUMIN/GLOBULIN RATIO 0.6 (1.1-1.5); ALKALINE PHOSPHATASE 74 IU/L (46-116); ANION GAP 14 (8-16); ASPARTATE AMINO TRANSFERASE 38 U/L (10-37); BILIRUBIN,TOTAL 0.4 MG/DL (0.1-1.0); BLOOD UREA NITROGEN 43 MG/DL (7-18); BUN/CREATININE RATIO 70.5 (6.6-38.0); CALCIUM 8.8 MG/DL (8.5-10.1); CHLORIDE 102 MMOL/L (99-107); CREATININE 0.61 MG/DL (0.40-0.90); GLUCOSE 138 MG/DL (70-104); POTASSIUM 3.7 MMOL/L (3.5-5.1); PREALBUMIN 29.9 MG/DL (19-36); SODIUM 140 MMOL/L (135-145); TOTAL CARBON DIOXIDE 23.9 MMOL/L (24-32); TOTAL PROTEIN 6.3 G/DL (6.4-8.2); eGFR > 90 ML/MIN
--- NOTE | 2019-04-17 06:25 | NUR ---
Problems reprioritized. Patient report given, questions answered & plan of care reviewed with Tonie PATEL.
--- NOTE | 2019-04-17 06:29 | NUR ---
Patient in room CICU 2006. I have received report from Ana PATEL and had the opportunity to ask questions and assume patient care.
[2019-04-17 06:57] LABS: ANISOCYTOSIS 3+; MICROCYTOSIS 2+; PLATELET ESTIMATE NORMAL
[2019-04-17 06:58] LABS: LARGE PLATELETS FEW; TARGET CELLS FEW
[2019-04-17 06:59] LABS: HYPOCHROMASIA 2+
[2019-04-17] MEDS ORDERED: VANCOMYCIN LEVEL IV ONE (07:30)
[2019-04-17] MEDS: pantoprazole 40 MG vial IV SCH (07:42)
[2019-04-17] MEDS: linezolid 600mg/300ml PREMIX 300 ML IV SCH (07:45)
[2019-04-17] MEDS: carvedilol 6.25mg tablet PO SCH ×2 (07:46→20:09)
[2019-04-17] MEDS: lactobacillus rhamnosus 10,000 MMU CELLS/CAPSULE OGT SCH ×2 (07:46→20:09)
[2019-04-17] MEDS: heparin, porcine 5000 units/ml vial SQ SCH ×2 (07:52→20:09)
[2019-04-17] MEDS: NYSTATIN CREAM - 30GM TUBE TP SCH ×2 (07:56→20:10)
[2019-04-17] MEDS: docusate sodium 100mg/10ml UD cup OGT SCH ×2 (08:00→20:00)
[2019-04-17] MEDS: K and/or MAG REPLACEMENT MC SCH ×2 (08:00→20:00)
[2019-04-17] MEDS: LORazepam 2 mg/ml vial IV PRN (11:29)
--- NOTE | 2019-04-17 12:40 | NUR ---
Followup: Per MD at critical care rounds, pending aniyah CORREIA 04/17. Will continue to monitor. Addendum: 04/17/19 at 1240 by Wing Lemuel FLORES Amended: Links added. Addendum: 04/17/[address] MARK Chen
--- NOTE | 2019-04-17 14:50 | NUR ---
Patient report given, questions answered & plan of care reviewed with Art RN.
--- NOTE | 2019-04-17 18:26 | NUR ---
Patient in room CICU 2006. I have received report from Art RN, and had the opportunity to ask questions and assume patient care.
[2019-04-17] MEDS: insulin glargine (Lantus) pen - multi-dose SQ SCH (21:00)
[2019-04-17] MEDS ORDERED: diatr meglu/diatrizoate 30ml oral sol.-(3 dose) bottle NG ONE (22:00)
[2019-04-18] VITALS (25 sets, daily range): BP systolic 95–180; BP diastolic 53–103
--- NOTE | 2019-04-18 00:05 | NUR ---
TF turned off and PT now NPO.
[2019-04-18] MEDS: furosemide 10 MG/1 ML 10ml inj IV SCH ×3 (00:19→16:28)
[2019-04-18] MEDS: dexmedetomidine inj. 400 MCG in normal saline 100ml IV soln 100 ML IV PRN ×5 (00:20→18:24)
[2019-04-18] MEDS: DOCOSANOL 2 GM CREAM..G. TP SCH ×4 (02:11→20:21)
[2019-04-18] MEDS: mineral oil/petrolatum ophthal oint EACHEYE SCH ×4 (02:12→20:20)
[2019-04-18] MEDS: VANCOMYCIN LEVEL IV SCH (03:00)
[2019-04-18] MEDS: ipratropium/albuterol 3ml nebule NEB SCH ×6 (03:11→23:40)
[2019-04-18 03:37] LABS: BASOPHILS % (AUTO) 0.3 % (0-1); EOSINOPHILS # (AUTO) 0.4 X10'3 (0-0.9); LYMPHOCYTES # (AUTO) 0.9 X10'3 (1.1-4.8); LYMPHOCYTES % (AUTO) 9.9 % (21-51); MEAN CORPUSCULAR HEMOGLOBIN 24.6 PG (27.0-31.0); MEAN CORPUSCULAR HGB CONC 32.1 g/dL (33.0-36.5); MEAN CORPUSCULAR VOLUME 76.6 FL (78-98); MONOCYTES # (AUTO) 0.8 X10'3 (0-0.9); MONOCYTES % (AUTO) 9.6 % (2-12); NEUTROPHILS # (AUTO) 6.7 X10'3 (1.8-7.7); NEUTROPHILS % (AUTO) 76.2 % (42-75); PLATELET COUNT 257 X10'3 (140-440); RED BLOOD COUNT 3.66 X10'6 (4.20-5.60); RED CELL DISTRIBUTION WIDTH 37.9 % (11.5-14.5); WHITE BLOOD COUNT 8.8 X10'3 (4.5-11.0)
[2019-04-18 03:44] LABS: ALANINE AMINOTRANSFERASE 32 U/L (12-78); ALBUMIN 2.4 G/DL (3.4-5.0); ALBUMIN/GLOBULIN RATIO 0.6 (1.1-1.5); ALKALINE PHOSPHATASE 76 IU/L (46-116); ANION GAP 11 (8-16); ASPARTATE AMINO TRANSFERASE 40 U/L (10-37); BILIRUBIN,TOTAL 0.4 MG/DL (0.1-1.0); BLOOD UREA NITROGEN 40 MG/DL (7-18); BUN/CREATININE RATIO 72.7 (6.6-38.0); CALCIUM 9.1 MG/DL (8.5-10.1); CHLORIDE 102 MMOL/L (99-107); CREATININE 0.55 MG/DL (0.40-0.90); GLUCOSE 123 MG/DL (70-104); POTASSIUM 3.4 MMOL/L (3.5-5.1); SODIUM 141 MMOL/L (135-145); TOTAL CARBON DIOXIDE 28.3 MMOL/L (24-32); TOTAL PROTEIN 6.4 G/DL (6.4-8.2); VANCOMYCIN,RANDOM 20.6 UG/ML; eGFR > 90 ML/MIN
[2019-04-18 04:15] LABS: MAGNESIUM 1.6 MG/DL (1.5-2.4)
[2019-04-18 04:20] LABS: ABG BASE EXCESS 0.9 mmol/L (-2.0-3.0); ABG HCO3 23.6 mmol/L (22.0-26.0); ABG OXYGEN SATURATION 96.3 % (95-98); ABG PCO2 (T) 29.3 mmHg (35.0-45.0); ABG PO2 (T) 82.1 mmHg (83-108); ALLEN'S TEST POSITIVE; FCOHb 0.1 % (0.5-1.5); FMetHb 0.1 % (0.3-1.12); FO2Hb 96.1 % (94-100); PATIENT TEMPERATURE 36.1; PEEP 5 cm H2O; RESPIRATORY RATE 14 b/min; TIDAL VOLUME 500 mL; TOTAL HEMOGLOBIN 9.3 G/dl (12.0-16.0)
[2019-04-18] MEDS: potassium Cl 20mEq/100mL bag 100 ML IV PRN ×2 (04:27→06:08)
[2019-04-18 04:55] LABS: ANISOCYTOSIS 3+; MICROCYTOSIS 1+; PLATELET ESTIMATE NORMAL
--- NOTE | 2019-04-18 06:39 | NUR ---
Problems reprioritized. Patient report given, questions answered & plan of care reviewed with Fuentes PATEL.
[2019-04-18] MEDS: LORazepam 2 mg/ml vial IV PRN (08:37)
[2019-04-18] MEDS: heparin, porcine 5000 units/ml vial SQ SCH ×2 (09:00→20:20)
[2019-04-18] MEDS: carvedilol 6.25mg tablet PO SCH ×2 (09:00→20:20)
[2019-04-18] MEDS: docusate sodium 100mg/10ml UD cup OGT SCH ×2 (09:00→20:19)
[2019-04-18] MEDS: lactobacillus rhamnosus 10,000 MMU CELLS/CAPSULE OGT SCH ×2 (09:00→20:19)
[2019-04-18] MEDS: pantoprazole 40 MG vial IV SCH (09:01)
[2019-04-18] MEDS: K and/or MAG REPLACEMENT MC SCH ×2 (09:01→20:00)
[2019-04-18] MEDS: methylnaltrexone br 12mg/0.6ml inj***SubQ only SQ SCH (09:02)
[2019-04-18] MEDS: NYSTATIN CREAM - 30GM TUBE TP SCH ×2 (09:03→20:21)
--- NOTE | 2019-04-18 12:01 | NUR ---
Reassessment: Patient pending trach and PEG. Intubated and sedated tolerating tube feeding at goal rate with gastric residuals within normal limits. Continue nutrition intervention. Will continue to monitor. Recommendations: 1. Continuous Vital High Protein at goal rate of 90 mL/hr to provide: 2160 mL total volume/day, 2160 kcal, 189 g protein, and 1806 mL water 2. additional water flush 250ml q4 3. Prealbumin q Sunday and ; daily wts 4. Routine bowel care Addendum: 04/18/19 at [address] Amended: Links added.
--- NOTE | 2019-04-18 14:01 | NUR ---
Spoke with covering nurse Luann, as patient's nurse was unavailable, asking for person to contact for consent. Was told that the patient's family is stating the patient is able to consent for herself however she is not currently able to answering questions from the nurse. Dr. Gomes made aware, we will postpone the procedure until we are able to find proper consent. We will plan for Sunday for now. Called and spoke with Luann RN letting her know of this update.
--- NOTE | 2019-04-18 16:36 | NUR ---
TF restarted at [facility] initial orders. Pt to get peg on Sun04/21/19
--- NOTE | 2019-04-18 18:25 | NUR ---
Problems reprioritized. Patient report given, questions answered & plan of care reviewed with Day olivas.
--- NOTE | 2019-04-18 18:30 | NUR ---
Patient in room CICU 2006. I have received report from snow olivas and had the opportunity to ask questions and assume patient care.
[2019-04-18] MEDS: insulin regular, human U-100 3ml vial - multi-dose SQ SCH (20:38)
[2019-04-18] MEDS: insulin glargine (Lantus) pen - multi-dose SQ SCH (20:39)
[2019-04-19] VITALS (23 sets, daily range): BP systolic 103–156; BP diastolic 53–99
[2019-04-19] MEDS: furosemide 10 MG/1 ML 10ml inj IV SCH ×3 (00:54→17:14)
[2019-04-19] MEDS: DOCOSANOL 2 GM CREAM..G. TP SCH ×4 (02:12→19:58)
[2019-04-19] MEDS: mineral oil/petrolatum ophthal oint EACHEYE SCH ×4 (02:12→19:50)
[2019-04-19] MEDS: insulin regular, human U-100 3ml vial - multi-dose SQ SCH (02:17)
[2019-04-19 02:51] LABS: EOSINOPHILS # (AUTO) 0.2 X10'3 (0-0.9); MONOCYTES # (AUTO) 0.7 X10'3 (0-0.9)
[2019-04-19 02:55] LABS: BASOPHILS % (AUTO) 0.3 % (0-1); HEMATOCRIT 25.9 % (35.0-45.0); HEMOGLOBIN 8.1 g/dl (12.0-16.0); LYMPHOCYTES # (AUTO) 0.7 X10'3 (1.1-4.8); LYMPHOCYTES % (AUTO) 9.3 % (21-51); MEAN CORPUSCULAR HEMOGLOBIN 24.4 PG (27.0-31.0); MEAN CORPUSCULAR HGB CONC 31.5 g/dL (33.0-36.5); MEAN CORPUSCULAR VOLUME 77.5 FL (78-98); MEAN PLATELET VOLUME 9.3 FL (7.4-10.4); MONOCYTES % (AUTO) 9.7 % (2-12); NEUTROPHILS # (AUTO) 5.9 X10'3 (1.8-7.7); NEUTROPHILS % (AUTO) 77.7 % (42-75); PLATELET COUNT 243 X10'3 (140-440); RED BLOOD COUNT 3.34 X10'6 (4.20-5.60); RED CELL DISTRIBUTION WIDTH 36.9 % (11.5-14.5); WHITE BLOOD COUNT 7.5 X10'3 (4.5-11.0)
[2019-04-19 03:00] LABS: ALANINE AMINOTRANSFERASE 35 U/L (12-78); ALBUMIN 2.3 G/DL (3.4-5.0); ALBUMIN/GLOBULIN RATIO 0.6 (1.1-1.5); ALKALINE PHOSPHATASE 72 IU/L (46-116); ANION GAP 8 (8-16); ASPARTATE AMINO TRANSFERASE 31 U/L (10-37); BILIRUBIN,TOTAL 0.3 MG/DL (0.1-1.0); BLOOD UREA NITROGEN 38 MG/DL (7-18); BUN/CREATININE RATIO 61.3 (6.6-38.0); CALCIUM 8.6 MG/DL (8.5-10.1); CHLORIDE 107 MMOL/L (99-107); CREATININE 0.62 MG/DL (0.40-0.90); GLUCOSE 144 MG/DL (70-104); MAGNESIUM 1.6 MG/DL (1.5-2.4); POTASSIUM 3.2 MMOL/L (3.5-5.1); SODIUM 144 MMOL/L (135-145); TOTAL CARBON DIOXIDE 28.6 MMOL/L (24-32); TOTAL PROTEIN 6.2 G/DL (6.4-8.2); VANCOMYCIN,RANDOM 11.3 UG/ML; eGFR > 90 ML/MIN
[2019-04-19] MEDS: VANCOMYCIN LEVEL IV SCH (03:00)
[2019-04-19] MEDS: ipratropium/albuterol 3ml nebule NEB SCH ×7 (03:35→23:36)
[2019-04-19 03:45] LABS: ANISOCYTOSIS 3+; HYPOCHROMASIA 1+; MICROCYTOSIS 1+; PLATELET ESTIMATE NORMAL
[2019-04-19 03:46] LABS: POLYCHROMASIA FEW
[2019-04-19] MEDS: dexmedetomidine inj. 400 MCG in normal saline 100ml IV soln 100 ML IV PRN (04:25)
--- NOTE | 2019-04-19 04:30 | NUR ---
Pt awake and sobbing. Able to communicate via board that she is not in any pain. Pt reassured and redirected. Precedex turned up.
[2019-04-19] MEDS: NYSTATIN CREAM - 30GM TUBE TP SCH ×2 (08:00→19:57)
[2019-04-19] MEDS: K and/or MAG REPLACEMENT MC SCH ×2 (08:00→20:00)
[2019-04-19] MEDS: carvedilol 6.25mg tablet PO SCH ×2 (08:00→19:56)
[2019-04-19] MEDS: docusate sodium 100mg/10ml UD cup OGT SCH ×2 (08:00→19:50)
[2019-04-19] MEDS: lactobacillus rhamnosus 10,000 MMU CELLS/CAPSULE OGT SCH ×2 (08:00→19:56)
--- NOTE | 2019-04-19 08:53 | NUR ---
At bedside with MD; Patient is alert and oriented and off sedation. Communication with her is very clear and she is nodding and answering questions appropriately. She indicated to Dr Iverson, with no uncertainty, that she does not want a trach and peg, and that she wants the ET tube removed. She understands that if the ETT comes out, she may not be able to breath on her own, and without re-intubation she would . She does not want to be re-intubated, even if it means she would , and agreed to DNR and extubation. Dr Iverson asked each question multiple times, in different ways, to make sure that she clearly understood, and she answered the same each time. Family and charge notified Addendum: 04/19/19 at 3811 by Rudy Guaman RN Exact process repeated with terell, her son, at bedside, and she still wants the same thing
[2019-04-19] MEDS ORDERED: LORazepam 2 mg/ml vial IV ONE (09:30)
[2019-04-19] MEDS ORDERED: HYDROmorphone 1 mg/ml syringe IV ONE (09:30)
--- NOTE | 2019-04-19 09:45 | NUR ---
Patient extubated per MD orders to NC. Family present. MD at bedside. Patient doing well so far
[2019-04-19] MEDS ORDERED: HYDROmorphone 1 mg/ml syringe IV PRN (10:10)
[2019-04-19] MEDS ORDERED: LORazepam 2 mg/ml vial IV PRN (10:10)
[2019-04-19] MEDS: pantoprazole 40 MG vial IV SCH (10:31)
[2019-04-19] MEDS: heparin, porcine 5000 units/ml vial SQ SCH ×2 (10:33→20:10)
[2019-04-19] MEDS: potassium Cl 20mEq/100mL bag 100 ML IV PRN ×2 (10:44→11:58)
[2019-04-19] MEDS: morphine 2 MG/ML inj. syringe IV PRN ×2 (13:38→19:13)
--- NOTE | 2019-04-19 18:30 | NUR ---
Patient in room CICU 2006. I have received report from Rudy PATEL and had the opportunity to ask questions and assume patient care.
--- NOTE | 2019-04-19 19:21 | NUR ---
Pt c/o generalized pain, pt states "I'm fucking sick of this crap, all I want is a fucking bath." I reassured the pt that she will indeed get a bath after a while and that she has received a bath everyday that she has been here, to which she replied, "My fucking is here, he can do it, I know you are fucking lying you don't give two shits about me." Again pt was reassured that we are trying to help her and that we would be in to bath her.
[2019-04-19] MEDS: lactobacillus rhamnosus 10,000 MMU CELLS/CAPSULE PO SCH (19:57)
[2019-04-19] MEDS: insulin glargine (Lantus) pen - multi-dose SQ SCH (21:00)
[2019-04-19] MEDS: LORazepam 2 mg/ml vial IV PRN (22:58)
[2019-04-20] VITALS (24 sets, daily range): BP systolic 147–187; BP diastolic 90–116
[2019-04-20] MEDS: furosemide 10 MG/1 ML 10ml inj IV SCH ×2 (01:38→08:24)
[2019-04-20] MEDS: mineral oil/petrolatum ophthal oint EACHEYE SCH (02:00)
[2019-04-20] MEDS: DOCOSANOL 2 GM CREAM..G. TP SCH ×4 (02:50→20:11)
[2019-04-20] MEDS: VANCOMYCIN LEVEL IV SCH (03:00)
[2019-04-20 03:14] LABS: PHOSPHORUS 2.6 MG/DL (2.3-4.5)
[2019-04-20] MEDS: ipratropium/albuterol 3ml nebule NEB SCH ×6 (03:45→23:14)
[2019-04-20 03:46] LABS: VANCOMYCIN,RANDOM 169.8 UG/ML
[2019-04-20 04:17] LABS: BASOPHILS # (AUTO) 0.1 X10'3 (0-0.2); BASOPHILS % (AUTO) 0.9 % (0-1); EOSINOPHILS # (AUTO) 0.3 X10'3 (0-0.9); HEMATOCRIT 30.7 % (35.0-45.0); HEMOGLOBIN 9.7 g/dl (12.0-16.0); MEAN CORPUSCULAR HEMOGLOBIN 24.6 PG (27.0-31.0); MEAN CORPUSCULAR HGB CONC 31.7 g/dL (33.0-36.5); MEAN CORPUSCULAR VOLUME 77.5 FL (78-98); MONOCYTES # (AUTO) 0.9 X10'3 (0-0.9); MONOCYTES % (AUTO) 9.7 % (2-12); NEUTROPHILS # (AUTO) 6.9 X10'3 (1.8-7.7); NEUTROPHILS % (AUTO) 75.4 % (42-75); PLATELET COUNT 295 X10'3 (140-440); RED BLOOD COUNT 3.96 X10'6 (4.20-5.60); RED CELL DISTRIBUTION WIDTH 36.9 % (11.5-14.5); WHITE BLOOD COUNT 9.1 X10'3 (4.5-11.0)
[2019-04-20] MEDS: hydrALAZINE 20mg/ml inj. IV PRN (04:23)
[2019-04-20 04:49] LABS: ALANINE AMINOTRANSFERASE 41 U/L (12-78); ALBUMIN 2.9 G/DL (3.4-5.0); ALBUMIN/GLOBULIN RATIO 0.6 (1.1-1.5); ALKALINE PHOSPHATASE 91 IU/L (46-116); ANION GAP 8 (8-16); ASPARTATE AMINO TRANSFERASE 37 U/L (10-37); BILIRUBIN,TOTAL 0.4 MG/DL (0.1-1.0); BLOOD UREA NITROGEN 32 MG/DL (7-18); BUN/CREATININE RATIO 45.7 (6.6-38.0); CALCIUM 9.4 MG/DL (8.5-10.1); CHLORIDE 107 MMOL/L (99-107); GLUCOSE 129 MG/DL (70-104); MAGNESIUM 1.6 MG/DL (1.5-2.4); PHOSPHORUS 3.9 MG/DL (2.3-4.5); POTASSIUM 3.3 MMOL/L (3.5-5.1); SODIUM 146 MMOL/L (135-145); TOTAL PROTEIN 7.5 G/DL (6.4-8.2); eGFR 88 ML/MIN
--- NOTE | 2019-04-20 04:56 | NUR ---
Pt calls out, swears but denies pain and refuses pain medication. AM labs redrawn after procedural error. H&H within normal limits.
[2019-04-20] MEDS: potassium Cl 20mEq/100mL bag 100 ML IV PRN ×2 (05:33→12:49)
--- NOTE | 2019-04-20 06:40 | NUR ---
Student documentation: I have reviewed and agree with all interventions, assessments performed and documented by Abhijit AGUIRRE. Student Medication Administration: For this medication-pass time frame, all medication were reviewed, dispensed, administered and documented per hospital policy by Abhijit AGUIRRE.
--- NOTE | 2019-04-20 06:40 | NUR ---
Problems reprioritized. Patient report given, questions answered & plan of care reviewed with Aditi PATEL.
--- NOTE | 2019-04-20 07:57 | NUR ---
Patient in room CICU 2007. I have received report from BERENICE and had the opportunity to ask questions and assume patient care.
[2019-04-20] MEDS: lactobacillus rhamnosus 10,000 MMU CELLS/CAPSULE OGT SCH ×2 (08:00→20:12)
[2019-04-20] MEDS: lactobacillus rhamnosus 10,000 MMU CELLS/CAPSULE PO SCH ×2 (08:00→20:00)
[2019-04-20] MEDS: docusate sodium 100mg/10ml UD cup OGT SCH ×2 (08:00→19:21)
[2019-04-20] MEDS: K and/or MAG REPLACEMENT MC SCH ×2 (08:00→19:21)
[2019-04-20] MEDS: carvedilol 6.25mg tablet PO SCH ×2 (08:00→20:13)
[2019-04-20] MEDS: pantoprazole 40 MG vial IV SCH (08:16)
[2019-04-20] MEDS: methylnaltrexone br 12mg/0.6ml inj***SubQ only SQ SCH (08:29)
[2019-04-20] MEDS: heparin, porcine 5000 units/ml vial SQ SCH ×2 (08:33→20:12)
[2019-04-20 10:35] LABS: % IRON SATURATION 12 % (11-46); IRON 35 UG/DL (49-151); TOTAL IRON BINDING CAPACITY 289 UG/DL (259-388)
--- NOTE | 2019-04-20 11:25 | NUR ---
Swallow study administered. PT passed swallow study
[2019-04-20] MEDS ORDERED: labetalol 20mg/4ml (5mg/ml) syringe IV PRN (11:35)
[2019-04-20] MEDS: NYSTATIN CREAM - 30GM TUBE TP SCH ×2 (13:00→20:10)
[2019-04-20] MEDS: spironolactone 25 MG tablet PO SCH ×2 (13:36→20:10)
[2019-04-20] MEDS ORDERED: insulin Lispro (HumaLOG) vial - multi-dose SQ SCH (14:20)
--- NOTE | 2019-04-20 18:21 | NUR ---
Problems reprioritized. Patient report given, questions answered & plan of care reviewed with
--- NOTE | 2019-04-20 19:17 | NUR ---
Patient in room [facility] 2006. I have received report from day shift RN and had the opportunity to ask questions and assume patient care. Addendum: 04/20/19 at 1918 by Qian Reddy RN Amended: Links added.
--- NOTE | 2019-04-20 20:32 | NUR ---
Patient refusing to take PM meds. States: "I'm not taking that!" "Oh sure, now you're giving me water!" Large bottle of Coke on tray table and 2L bottle of Sprite in a bag on the floor in room, explained again to patient and family members the importance of compliance with medication regime and monitoring fluid intake. Patient agreed to take some of PM meds but remained belligerent, argumentative and defiant.
[2019-04-20] MEDS: insulin glargine (Lantus) pen - multi-dose SQ SCH (21:00)
[2019-04-20] MEDS ORDERED: diatr meglu/diatrizoate 30ml oral sol.-(3 dose) bottle NG ONE (22:00)
--- NOTE | 2019-04-20 23:27 | NUR ---
Patient refusing HS accucheck as well as 0300 breathing treatment. Explained the importance of blood sugar monitoring, pt continues to refuse.
[2019-04-21] VITALS (24 sets, daily range): BP systolic 122–190; BP diastolic 58–115
[2019-04-21] MEDS: DOCOSANOL 2 GM CREAM..G. TP SCH ×4 (02:45→20:00)
[2019-04-21] MEDS: VANCOMYCIN LEVEL IV SCH (03:00)
[2019-04-21] MEDS: ipratropium/albuterol 3ml nebule NEB SCH ×6 (03:00→23:00)
--- NOTE | 2019-04-21 03:22 | NUR ---
PT REFUSED HER 299 SVN TREATMENT. SHE STATED SHE DIDN'T WANT IT, AND SHE'LL TAKE HER CHANCES WITHOUT IT.
--- NOTE | 2019-04-21 04:25 | NUR ---
Patient refusing to have blood drawn for AM labs. Hypertensive, refusing PRN antihypertensive meds.
--- NOTE | 2019-04-21 06:26 | NUR ---
Problems reprioritized. Patient report given, questions answered & plan of care reviewed with Aditi PATEL.
--- NOTE | 2019-04-21 06:53 | NUR ---
Patient in room CICU 2006. I have received report from and had the opportunity to ask questions and assume patient care.
[2019-04-21] MEDS: lactobacillus rhamnosus 10,000 MMU CELLS/CAPSULE OGT SCH ×2 (08:00→20:00)
[2019-04-21] MEDS: K and/or MAG REPLACEMENT MC SCH ×2 (08:00→20:00)
[2019-04-21] MEDS: pantoprazole 40 MG vial IV SCH (08:10)
[2019-04-21] MEDS: FERROUS SULFATE 142 MG TABLET.ER (45mg elemental) PO SCH (08:22)
[2019-04-21] MEDS: heparin, porcine 5000 units/ml vial SQ SCH ×2 (08:22→20:00)
[2019-04-21] MEDS: spironolactone 25 MG tablet PO SCH (08:22)
[2019-04-21] MEDS: carvedilol 6.25mg tablet PO SCH ×2 (08:22→20:00)
[2019-04-21] MEDS: lactobacillus rhamnosus 10,000 MMU CELLS/CAPSULE PO SCH (08:23)
[2019-04-21] MEDS: NYSTATIN CREAM - 30GM TUBE TP SCH ×2 (08:41→20:00)
[2019-04-21] MEDS ORDERED: dexmedetomidine inj. 400 MCG in normal saline 100ml IV soln 100 ML IV PRN (09:40)
[2019-04-21] MEDS: iron sucrose complex injection 200 MG in normal saline 100ml IV soln 100 ML IV SCH (10:58)
--- NOTE | 2019-04-21 11:42 | NUR ---
Reassessment: Patient was extubated ; is on full liquid diet after passing nursing swallow evaluation and consumed 50% this morning for breakfast, needing max assistance with feeding. 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 Recommendations: 1. Advance diet per ST recommendations, recommend BSS prior to diet advancement in view of intubation discussed at rounds 2. Monitor PO intake and need for additional protein as appetite returns. Poor appetite s/p extubation is expected after one month intubation 3. Bowel regularity 4. weight per rx Addendum: 04/21/19 at [address] Amended: Links added.
[2019-04-21] MEDS: docusate sodium 100mg/10ml UD cup OGT SCH (15:19)
[2019-04-21] MEDS ORDERED: dextrose ORAL solution 15 GM/59 ML bottle PO PRN ×2 (16:25)
[2019-04-21] MEDS ORDERED: docusate sodium 100mg/10ml UD cup PO SCH (16:25)
[2019-04-21] MEDS ORDERED: lactulose 20gm/30ml cup PO PRN (16:26)
--- NOTE | 2019-04-21 18:30 | NUR ---
Problems reprioritized. Patient report given, questions answered & plan of care reviewed with .
--- NOTE | 2019-04-21 18:56 | NUR ---
The patient did not want her breathing treatment at 1900. I ask her if she wanted her treatment at all through the night and she stated, "no and she wants me out of her fucking face".
--- NOTE | 2019-04-21 19:01 | NUR ---
Introduced myself to patient as her supervisor soakers nurse, pt stated "go fuck yourself and get out of my room." I informed her she had medications due at 1900, pt stated "you can shove them up your ass." charted as pt refused meds will reassess
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
[2019-04-21] MEDS: docusate sod 100mg capsule PO SCH (20:00)
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
[2019-04-21] MEDS: insulin glargine (Lantus) pen - multi-dose SQ SCH (21:00)
--- NOTE | 2019-04-21 22:40 | NUR ---
pt is asleep and resting comfortably. all night medications, glucose check and turns refused by patient.
[2019-04-22] VITALS (17 sets, daily range): BP systolic 126–191; BP diastolic 75–107
[2019-04-22] MEDS: hydrALAZINE 20mg/ml inj. IV PRN (01:09)
[2019-04-22] MEDS: ipratropium/albuterol 3ml nebule NEB SCH ×6 (02:44→18:57)
[2019-04-22] MEDS: morphine 2 MG/ML inj. syringe IV PRN (02:45)
[2019-04-22] MEDS: FERROUS SULFATE 142 MG TABLET.ER (45mg elemental) PO SCH (08:00)
[2019-04-22] MEDS: heparin, porcine 5000 units/ml vial SQ SCH (08:00)
[2019-04-22] MEDS: K and/or MAG REPLACEMENT MC SCH (08:00)
[2019-04-22] MEDS ORDERED: spironolactone 25 MG tablet PO SCH (08:00)
[2019-04-22] MEDS ORDERED: furosemide 40mg tablet PO SCH (08:00)
[2019-04-22] MEDS: docusate sod 100mg capsule PO SCH (08:34)
[2019-04-22] MEDS: lactobacillus rhamnosus 10,000 MMU CELLS/CAPSULE OGT SCH (08:34)
[2019-04-22] MEDS: carvedilol 6.25mg tablet PO SCH (08:35)
[2019-04-22] MEDS: pantoprazole 40 MG vial IV SCH (08:38)
[2019-04-22] MEDS: methylnaltrexone br 12mg/0.6ml inj***SubQ only SQ SCH (08:38)
[2019-04-22] MEDS: NYSTATIN CREAM - 30GM TUBE TP SCH (08:42)
[2019-04-22] MEDS: DOCOSANOL 2 GM CREAM..G. TP SCH ×2 (08:42→14:00)
[2019-04-22] MEDS: iron sucrose complex injection 200 MG in normal saline 100ml IV soln 100 ML IV SCH (08:55)
[2019-04-22 08:59] LABS: ALANINE AMINOTRANSFERASE 42 U/L (12-78); ALBUMIN 2.8 G/DL (3.4-5.0); ALBUMIN/GLOBULIN RATIO 0.7 (1.1-1.5); ALKALINE PHOSPHATASE 87 IU/L (46-116); ANION GAP 7 (8-16); ASPARTATE AMINO TRANSFERASE 37 U/L (10-37); BILIRUBIN,TOTAL 0.4 MG/DL (0.1-1.0); BLOOD UREA NITROGEN 22 MG/DL (7-18); BUN/CREATININE RATIO 42.3 (6.6-38.0); CALCIUM 9.8 MG/DL (8.5-10.1); CHLORIDE 108 MMOL/L (99-107); CREATININE 0.52 MG/DL (0.40-0.90); GLUCOSE 117 MG/DL (70-104); MAGNESIUM 1.9 MG/DL (1.5-2.4); PHOSPHORUS 4.3 MG/DL (2.3-4.5); SODIUM 144 MMOL/L (135-145); TOTAL CARBON DIOXIDE 28.6 MMOL/L (24-32); VANCOMYCIN,RANDOM 3.8 UG/ML; eGFR > 90 ML/MIN
--- NOTE | 2019-04-22 09:27 | NUR ---
pt AM labs were not drawn. NOC RN notified me that pt was a stick. lab attempted 2x to draw labs. pt refusing after being educated; will continue to monitor.
--- NOTE | 2019-04-22 11:02 | NUR ---
when asked if pt wanted tx, she said, "I'll take the fucken shit, because I can't fucken breathe. Because you guys aren't taking care of me. Addendum: 04/22/19 at 1104 by Cheyenne Ling RT Amended: Links added.
[2019-04-22 11:56] LABS: HEMOGLOBIN 10.2 g/dl (12.0-16.0)
[2019-04-22 11:57] LABS: BASOPHILS # (AUTO) 0.1 X10'3 (0-0.2); BASOPHILS % (AUTO) 0.9 % (0-1); EOSINOPHILS # (AUTO) 0.3 X10'3 (0-0.9); EOSINOPHILS % (AUTO) 3.7 % (0-6); HEMATOCRIT 32.6 % (35.0-45.0); LYMPHOCYTES # (AUTO) 1.4 X10'3 (1.1-4.8); MEAN CORPUSCULAR HGB CONC 31.2 g/dL (33.0-36.5); MEAN CORPUSCULAR VOLUME 80.2 FL (78-98); MEAN PLATELET VOLUME 9.1 FL (7.4-10.4); MONOCYTES # (AUTO) 0.8 X10'3 (0-0.9); MONOCYTES % (AUTO) 9.4 % (2-12); PLATELET COUNT 329 X10'3 (140-440); RED BLOOD COUNT 4.06 X10'6 (4.20-5.60); RED CELL DISTRIBUTION WIDTH 37.5 % (11.5-14.5); WHITE BLOOD COUNT 8.5 X10'3 (4.5-11.0)
--- NOTE | 2019-04-22 12:32 | NUR ---
called patient report to Kanwal PATEL at [facility]; all questions answered. patient's family at bedside notified of last picker time.
[2019-04-22 13:11] LABS: ANISOCYTOSIS 3+; LARGE PLATELETS FEW; PLATELET ESTIMATE NORMAL
[2019-04-22 13:12] LABS: MICROCYTOSIS 2+
[2019-04-22 13:13] LABS: HYPOCHROMASIA 1+; SCHISTOCYTES 1+
[2019-04-22 13:15] LABS: TEAR DROP CELLS FEW
[2019-04-22 13:16] LABS: SPHEROCYTES 1+
[2019-04-22 14:13] LABS: MAGNESIUM 1.9 MG/DL (1.5-2.4); PHOSPHORUS 3.5 MG/DL (2.3-4.5)
--- NOTE | 2019-04-22 16:31 | NUR ---
pt changed her mind and decided to take treatment Addendum: 04/22/19 at 1631 by Cheyenne Ling RT Amended: Links added.
--- NOTE | 2019-04-22 18:10 | NUR ---
Problems reprioritized. Patient report given, questions answered & plan of care reviewed with Cindy PATEL.
== END 2019-04-22 18:40 | DRG 870 ==
LOC: ER 13:19 → EEVIPCON 17:55 → ED HOLD 17:55 → MED 3N 21:00 → CICU 2S 03-12 17:08
PROVIDERS: ADMIT Internal Medicine; ATTEND Internal Medicine Critical Care Medicine
PROC: 5A09357 Assistance with Respiratory Ventilation, Less than 24 Consecutive Hours, Continuous Positive Airway Pressure (ICD-10-PCS; 2019-03-12)
PROC: 5A1955Z Respiratory Ventilation, Greater than 96 Consecutive Hours (ICD-10-PCS; principal; 2019-03-13)
PROC: 0BH17EZ Insertion of Endotracheal Airway into Trachea, Via Natural or Artificial Opening (ICD-10-PCS; 2019-03-13)
PROC: B32T1ZZ Computerized Tomography (CT Scan) of Left Pulmonary Artery using Low Osmolar Contrast (ICD-10-PCS; 2019-03-13)
PROC: B3201ZZ Computerized Tomography (CT Scan) of Thoracic Aorta using Low Osmolar Contrast (ICD-10-PCS; 2019-03-13)
PROC: B32S1ZZ Computerized Tomography (CT Scan) of Right Pulmonary Artery using Low Osmolar Contrast (ICD-10-PCS; 2019-03-13)
PROC: 02H633Z Insertion of Infusion Device into Right Atrium, Percutaneous Approach (ICD-10-PCS; 2019-03-14)
PROC: B548ZZA Ultrasonography of Superior Vena Cava, Guidance (ICD-10-PCS; 2019-03-14)
PROC: 0BC48ZZ Extirpation of Matter from Right Upper Lobe Bronchus, Via Natural or Artificial Opening Endoscopic (ICD-10-PCS; 2019-03-28)
PROC: 02HV33Z Insertion of Infusion Device into Superior Vena Cava, Percutaneous Approach (ICD-10-PCS; 2019-03-29)
PROC: B548ZZA Ultrasonography of Superior Vena Cava, Guidance (ICD-10-PCS; 2019-03-29)
PROC: 02HV33Z Insertion of Infusion Device into Superior Vena Cava, Percutaneous Approach (ICD-10-PCS; 2019-04-07)
PROC: B548ZZA Ultrasonography of Superior Vena Cava, Guidance (ICD-10-PCS; 2019-04-07)
DX: A41.02 Sepsis due to Methicillin resistant Staphylococcus aureus (principal); I21.A1 Myocardial infarction type 2; J96.01 Acute respiratory failure with hypoxia; J96.02 Acute respiratory failure with hypercapnia; J69.0 Pneumonitis due to inhalation of food and vomit; E87.0 Hyperosmolality and hypernatremia; G72.81 Critical illness myopathy; I13.0 Hypertensive heart and chronic kidney disease with heart failure and stage 1 through stage 4 chronic kidney disease, or unspecified chronic kidney disease; I42.0 Dilated cardiomyopathy; I42.6 Alcoholic cardiomyopathy; I42.7 Cardiomyopathy due to drug and external agent; I50.20 Unspecified systolic (congestive) heart failure; N17.9 Acute kidney failure, unspecified; E66.2 Morbid (severe) obesity with alveolar hypoventilation; I31.3 Pericardial effusion (noninflammatory); J98.11 Atelectasis; Z68.42 Body mass index [BMI] 45.0-49.9, adult; I50.9 Heart failure, unspecified; D64.9 Anemia, unspecified; F10.20 Alcohol dependence, uncomplicated; F14.10 Cocaine abuse, uncomplicated; F12.90 Cannabis use, unspecified, uncomplicated; Z66 Do not resuscitate; N18.9 Chronic kidney disease, unspecified; Z80.49 Family history of malignant neoplasm of other genital organs; Z87.01 Personal history of pneumonia (recurrent); Z90.81 Acquired absence of spleen; Z91.19 Patient's noncompliance with other medical treatment and regimen; Z88.5 Allergy status to narcotic agent; E87.5 Hyperkalemia
CPT/HCPCS: 31645; 36415; 36573; 36600; 70450; 71045; 71275; 74018; 76604; 76937; 80048; 80053; 80061; 80069; 80202; 80305; 82570; 82803; 82810; 82948; 83036; 83540; 83550; 83605; 83735; 83880; 83935; 84100; 84132; 84133; 84134; 84145; 84300; 84443; 84478; 84484; 84540; 84560; 85018; 85025; 85379; 85610; 85730; 86038; 86256; 86703; 87040; 87070; 87077; 87081; 87088; 87186; 87252; 92508; 92616; 93005; 93306; 93308; 93970; 94002; 94003; 94640; 94660; 94760; 97110; 97112; 97161; 97164; 97530; 99285; C9113; G0378; J0360; J0692; J1250; J1450; J1644; J1720; J1756; J1815; J1940; J2020; J2060; J2212; J2250; J2270; J2405; J2543; J2704; J2920; J2930; J2997; J3010; J3370; J3480; J3490; J7030; J7040; J7070; P9047; Q9963; Q9967